=== PATIENT | male | born 1965 | race Caucasian/White ===

== ENCOUNTER 2023-01-30 23:01 | Inpatient (IN) | payer OTHER, SELFPAY ==
--- NOTE | ~2023-01-30 | XR_ITS ---
EXAMINATION: XR CHEST CLINICAL INFORMATION: Shortness of breath COMPARISON: Chest radiograph 01/08/2022 TECHNIQUE: Frontal view of the chest was obtained. FINDINGS: There is been significant improvement in appearances since the prior study with much better expanded lungs and clearing of bilateral lower lobe atelectasis. At this time, the chest radiograph is unremarkable. Heart size normal. No infiltrates, effusions or lung masses. Again noted is cervical/thoracic fusion hardware. A tracheostomy is no longer present. XR/XR chest 1V IMPRESSION: No acute intrathoracic disease. Marked improvement since prior.
--- NOTE | ~2023-01-30 | XR_ITS ---
EXAMINATION: XR CHEST CLINICAL INFORMATION: Line placement COMPARISON: Earlier same date TECHNIQUE: Frontal view of the chest was obtained. FINDINGS: Left internal jugular central venous catheter terminates in the mid SVC. Normal symmetric lung volumes. No parenchymal consolidation. No pleural effusion. No pneumothorax. Cardiomediastinal silhouette and pulmonary vascularity are within normal limits. No acute osseous abnormalities. XR/XR chest 1V IMPRESSION: Left internal jugular central venous catheter terminates in the mid SVC. No pneumothorax.
--- NOTE | ~2023-01-30 | CT_ITS ---
EXAMINATION: CT PELVIS WITHOUT CONTRAST CLINICAL INFORMATION: Pressure wounds. Question of osteomyelitis. COMPARISON: None available. TECHNIQUE: Helical scanning was performed with submillimeter collimation through the pelvis. Sagittal and coronal multiplanar 2-D reconstructions were obtained. This CT examination was performed using dose optimization techniques as appropriate, variously including the following: *Automated exposure control *Adjustment of mA and/or kV according to patient size (this includes techniques or standardized protocols for targeted exams where dose is matched to indication/reason for exam; i.e. extremities or head) *Use of iterative reconstruction technique DLP: 473 mGy-cm FINDINGS: Large sacral decubitus ulcer reaching the inferior sacrum with chronic erosion of the S5 segment and complete resorption of the coccyx. The S5 segment is nearly completely resorbed on the left. The remaining right lateral aspect of the S5 segment appears corticated. There are erosive changes involving the dorsal cortex of the S4 segment, with heterotopic new bone formation. There are separate decubitus ulcers posterior to the bilateral ischia. On the right, the ulcer does not reach the bone but does reach the gluteus jud. On the left, the ulcer reaches the ischium which shows periosteal and cortical erosive changes with intramedullary lucency. A fourth decubitus ulcer posterior to the left proximal femur reaches the posterior metaphysis/greater trochanter with cortical destruction of the posterior aspect of the greater trochanter. There is gas lateral to the left greater trochanter, likely within the trochanteric bursa. Minimally displaced age-indeterminate left sacral alar insufficiency fracture. No additional fractures. Asymmetric thickening of the left piriformis likely reactive as it communicates with the large sacral decubitus ulcer. Trace presacral fat stranding without intraperitoneal drainable collection. Zuluaga catheter within the bladder. Diverticulosis coli. Left lower quadrant loop colostomy. CT/CT pelvis wo IV con IMPRESSION: * Large sacral decubitus ulcer with complete resorption of the coccyx, chronic erosion of the S5 segment and erosive changes involving the dorsal cortex of the S4 segment, which could represent acute on chronic osteomyelitis. * Additional decubitus ulcers posterior to the bilateral ischia, and posterior to the left proximal femur. The left ischial decubitus ulcer is associated with cortical destruction or intramedullary lucency within the left ischium indicative of osteomyelitis. The acuteness ulcer posterior to the proximal left femur reaches the posterior left femoral metaphysis/greater trochanter with cortical destruction of the posterior aspect of the greater trochanter, compatible with an additional site of osteomyelitis. This left posterior femoral decubitus ulcer likely communicates with the left greater trochanteric bursa which contains gas and small fluid. * No drainable fluid collection. * Age-indeterminate left sacral alar insufficiency fracture. * Additional chronic findings as above
--- NOTE | 2023-01-30 23:18 | ECG_ITS ---
Test Reason : SEPSIS Blood Pressure : / mmHG Vent. Rate : 109 BPM Atrial Rate : 110 BPM P-R Int : 122 ms QRS Dur : 140 ms QT Int : 354 ms P-R-T Axes : 067 006 042 degrees QTc Int : 476 ms Sinus tachycardia Right bundle branch block Possible Inferior infarct , age undetermined Abnormal ECG No previous ECGs available Referred By: Brittney Manning Electronically Signed By:BRADY FONG
--- NOTE | 2023-01-30 23:20 | ED.SOB ---
HPI - SOB/Dyspnea General Chief Complaint: Urogenital-Male Stated Complaint: BLOOD IN THE CATHETER Time Seen by Provider: 01/30/23 23:08 Source: patient Mode of arrival: EMS History of Present Illness HPI Narrative: 57-year-old male is brought in by EMS, he has not been to this institution previously and primarily gets his medical conditions treated through the [facility] system. Patient states that he became sweaty, he is a quadriplegic who has an indwelling Zuluaga catheter in states that typically when he becomes sweaty it is because his catheter is clogged and he has been drinking a lot of water throughout the day and feels his bladder may be distended. Patient reports he is also on anticoagulation. Patient states that he felt like he was going in and out . Related Data Home Medications Medication Instructions Recorded Confirmed acetaminophen 650 mg tablet 650 mg PO Q4H PRN Pain 01/31/23 01/31/23 albuterol sulfate 2.5 mg/3 mL See Rx Instructions .Route 01/31/23 01/31/23 (0.083 %) solution for nebulization .COMPLEX PRN Shortness Of Breath Or Wheezing alprazolam 0.25 mg tablet 0.25 mg PO BID PRN Anxiety 01/31/23 01/31/23 apixaban 2.5 mg tablet 2.5 mg PO BID 01/31/23 01/31/23 baclofen 10 mg tablet 10 mg PO TID 01/31/23 01/31/23 bisacodyl 10 mg rectal suppository 10 mg MT NEEDED 01/31/23 01/31/23 carbamide peroxide 6.5 % ear drops See Rx Instructions .Route .COMPLEX 01/31/23 01/31/23 (Debrox) carvedilol 3.125 mg tablet (Coreg) 3.125 mg PO Q12H 01/31/23 01/31/23 diclofenac sodium 1 % topical gel 2 g topical BID 01/31/23 01/31/23 fluticasone propionate 50 1 spray intranasal DAILY 01/31/23 01/31/23 mcg/actuation nasal spray,suspension loperamide 2 mg tablet (Imodium 2 mg PO Q6H PRN Diarrhea 01/31/23 01/31/23 A-D) omeprazole magnesium 20 mg 20 mg PO DAILY 01/31/23 01/31/23 tablet,delayed release (Prilosec OTC) potassium chloride 20 mEq 20 meq PO DAILY 01/31/23 01/31/23 tablet,extended release(part/cryst) (Klor-Con M) pravastatin 10 mg tablet 10 mg PO BEDTIME 01/31/23 01/31/23 sennosides 8.6 mg tablet 8.6 mg PO DAILY 01/31/23 01/31/23 sodium phosphates 19 gram-7 118 ml MT NEEDED 01/31/23 01/31/23 gram/118 mL enema (Fleet Enema) Allergies Allergy/AdvReac Type Severity Reaction Status Date / Time No Known Allergies Allergy Verified 01/30/23 23:22 Review of Systems Review of Systems: Pertinent positives and negatives as stated in [facility] Past Medical History Source: nursing notes reviewed Social History Social History Advance Directives: No Advance Directives Information Provided: Yes Physical Exam Vital Signs: Vital Signs: Last Vital Signs Temp 97.5 F 01/31/23 00:49 Pulse 86 01/31/23 01:24 Resp 18 01/31/23 01:24 BP 97/46 L 01/31/23 01:24 Pulse Ox 96 01/31/23 01:24 O2 Del Method Room Air 01/31/23 01:24 BMI result Body Mass Index 26.3 VITAL SIGNS: Reviewed. GENERAL: Chronically ill, in no moderate distress. HEAD: Normocephalic/atraumatic EYES: PERRLA, EOMI EARS: Ext canals without abnormality NOSE: Nares patent bilateral OROPHARYNX: no oral lesions noted, posterior pharynx clear, pale mucosa NECK: Supple, no adenopathy LUNGS: Normal breath sounds. No adventitious sounds or accessory muscle use. CARDIOVASCULAR: Regular rate and rhythm without noted murmurs, ABDOMEN: Soft, non-tender, non-distended with bowel sounds. MUSCULOSKELETAL: No tenderness, deformities, or effusions noted on gross inspection. EXTREMITIES: No cyanosis, clubbing or edema. SKIN: Inspection of the skin reveals no rashes, he is diaphoretic, pale NEUROLOGIC: Alert and oriented x 4. 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 Medications Administered Discontinued Medications Generic Name Dose Route Start Last Admin Trade Name Freq PRN Reason Stop Dose Admin Sodium Chloride 1,000 mls @ 999 mls/hr 01/30/23 23:45 01/31/23 00:51 Ns IV 01/31/23 00:45 Not Given .Q1H1M ESTEPHANIA Sodium Chloride 2,286.12 mls @ 2,286.12 mls/hr 01/31/23 00:00 01/31/23 00:56 Ns 30 ml/kg infuse over 1 hr (2286.12 ml) 01/31/23 00:59 Infused IVCONT Infusion .Q1H ONE Ceftriaxone Sodium 1 gm/ 100 mls @ 200 mls/hr 01/31/23 00:00 01/31/23 00:37 Sodium Chloride IV 01/31/23 00:29 Infused ONCE ONE Infusion Medical Decision Making Medical Decision Making MDM Narrative: 57-year-old male brought in by EMS, will review paperwork from long-term care facility, at this time will obtain bladder scan suspect that patient has gone into acute urinary retention likely secondary to clogged catheter which shows evidence of hematuria. Patient is pale and diaphoretic and will exchange Zuluaga catheter an attempt to alleviate current situation. Patient reports that he has low blood pressure at baseline which is consistent with the degree of spinal cord injury that he has endorsed. - Labs, Bladder scan, EKG, coags, Type& Screen, exchange catheter at this time 0001: Activated sepsis alert, patient with to low blood pressures though I suspect that this is in part his baseline as he is already endorsed, however leukocytosis is significant, antibiotics ordered. 0043: Urinalysis positive for nitrites, leukocyte esterase as well as blood, the latter of which was already apparent. On re-evaluation patient's blood pressure has improved, patient states he is feeling better, I reviewed documentation obtained from [facility] which demonstrates an EKG that is comparable to the 1 obtained today, echo which demonstrates EF of 55-60%. I discussed the case with the inpatient hospitalist who accepts admission. Differential Diagnosis Please see the discussion above Consult Healthcare Provider Management of the patient was discussed with: Hospitalist Please see the discussion above Lab Data Please see the discussion above 01/30/23 23:41 01/31/23 00:16 Labs: Lab Results 01/30/23 01/30/23 01/30/23 Range/Units 23:41 23:42 23:45 WBC 36.2 H* (4.8-10.8) X10*3/uL RBC 3.78 L (4.60-5.80) X10*6/uL Hgb 8.4 L (14.0-18.0) g/dl Hct 28.1 L (42.0-52.0) % MCV 74.3 L (80.0-98.0) fL MCH 22.2 L (27.0-33.0) pg MCHC 29.9 L (31.0-36.0) g/dl RDW 17.6 H (11.0-16.0) % Plt Count 554 H (160-400) X10*3/uL MPV 7.7 L (9.4-12.4) fL Immature Gran % (Auto) 1.1 H (0.0-0.4) % Neut % (Auto) 90.6 H (45-73) % Lymph % (Auto) 4.1 L (20-40) % [place] % (Auto) 3.6 (2-11) % Eos % (Auto) 0.4 (0-4) % Baso % (Auto) 0.2 (0-2) % Lymph # (Auto) 1.5 (1.2-4.9) X10*3/uL [place] # (Auto) 1.3 H (0.1-1.2) X10*3/uL Eos # (Auto) 0.1 (0.0-0.4) X10*3/uL Baso # (Auto) 0.1 (0.0-0.2) X10*3/uL Abs Immat Gran (auto) 0.40 H (0.00-0.03) X10*3/uL Absolute Neuts (auto) 32.8 H (2.0-8.3) x10*3/uL Absolute Nucleated RBC 0.020 H (0.0-0.012) X10*3/uL Nucleated RBC % (auto) 0.1 (0.0-0.2) /100WBC Smear Tech's Comments VERIFIED PT 17.3 H (10.0-13.1) SEC INR 1.5 H (0.9-1.1) Sodium (135-145) mmol/L Potassium (3.3-5.1) mmol/L Chloride (96-108) mmol/L Carbon Dioxide (22-29) mmol/L Anion Gap (12-20) BUN (9-16) mg/dL Creatinine (0.5-1.4) mg/dL Estim Creat Clear Calc Estimated GFR Random Glucose (60-115) mg/dL Lactic Acid 1.8 (0.5-2.0) mmol/L Calcium (8.4-10.2) mg/dL Total Bilirubin (0.0-1.0) mg/dL AST (5-37) U/L ALT (0-40) U/L Alkaline Phosphatase (39-117) U/L Total Protein (6.5-8.0) g/dL Albumin (3.5-5.0) g/dL Urine Color Urine Appearance Urine pH (5.0-9.0) Ur Specific [place] (1.005-1.025) Urine Protein (Neg-Trace) mg/dL Urine Glucose (UA) (Negative) mg/dL Urine Ketones (Negative) mg/dL Urine Blood (Negative) Urine Nitrite (Negative) Ur Leukocyte Esterase (Negative) Urine RBC (0-2) /HPF Urine WBC (0-5) /HPF Ur Squamous Epith Cells (0-2) /HPF Urine Bacteria (None Seen) Hyaline Casts (0-2) /LPF Blood Type Antibody Screen 01/30/23 01/31/23 01/31/23 Range/Units 23:55 00:02 00:16 WBC (4.8-10.8) X10*3/uL RBC (4.60-5.80) X10*6/uL Hgb (14.0-18.0) g/dl Hct (42.0-52.0) % MCV (80.0-98.0) fL MCH (27.0-33.0) pg MCHC (31.0-36.0) g/dl RDW (11.0-16.0) % Plt Count (160-400) X10*3/uL MPV (9.4-12.4) fL Immature Gran % (Auto) (0.0-0.4) % Neut % (Auto) (45-73) % Lymph % (Auto) (20-40) % [place] % (Auto) (2-11) % Eos % (Auto) (0-4) % Baso % (Auto) (0-2) % Lymph # (Auto) (1.2-4.9) X10*3/uL [place] # (Auto) (0.1-1.2) X10*3/uL Eos # (Auto) (0.0-0.4) X10*3/uL Baso # (Auto) (0.0-0.2) X10*3/uL Abs Immat Gran (auto) (0.00-0.03) X10*3/uL Absolute Neuts (auto) (2.0-8.3) x10*3/uL Absolute Nucleated RBC (0.0-0.012) X10*3/uL Nucleated RBC % (auto) (0.0-0.2) /100WBC Smear Tech's Comments PT (10.0-13.1) SEC INR (0.9-1.1) Sodium 132 L (135-145) mmol/L Potassium 3.3 (3.3-5.1) mmol/L Chloride 98 (96-108) mmol/L Carbon Dioxide 23 (22-29) mmol/L Anion Gap 14 (12-20) BUN 9 (9-16) mg/dL Creatinine 0.51 (0.5-1.4) mg/dL Estim Creat Clear Calc 149.4 Estimated GFR > 60 Random Glucose 98 (60-115) mg/dL Lactic Acid (0.5-2.0) mmol/L Calcium 7.6 L (8.4-10.2) mg/dL Total Bilirubin 0.6 (0.0-1.0) mg/dL AST 12 (5-37) U/L ALT 8 (0-40) U/L Alkaline Phosphatase 99 (39-117) U/L Total Protein 5.7 L (6.5-8.0) g/dL Albumin 2.1 L (3.5-5.0) g/dL Urine Color Yellow Urine Appearance Turbid Urine pH 6.5 (5.0-9.0) Ur Specific [place] 1.010 (1.005-1.025) Urine Protein 30 (1+) H (Neg-Trace) mg/dL Urine Glucose (UA) Negative (Negative) mg/dL Urine Ketones Trace (Negative) mg/dL Urine Blood Large (3+) H (Negative) Urine Nitrite Positive H (Negative) Ur Leukocyte Esterase Large (3+) H (Negative) Urine RBC >20 H (0-2) /HPF Urine WBC >50 H (0-5) /HPF Ur Squamous Epith Cells 0-2 (0-2) /HPF Urine Bacteria 4+ (None Seen) Hyaline Casts 0-2 (0-2) /LPF Blood Type A Positive Antibody Screen NEGATIVE Independent Interpretation I performed an independent interpretation of an: EKG Interpretation: Sinus tachycardia, HR-109, RBBB, no STEMI, MT/QTC is within normal limits. Radiology Impression Radiologist Impression: My interpretation is in agreement with radiology's impression. External Record Review External record reviewed: Outpatient record Procedures EJ/Peripheral Line Arm R: Time Out Performed: No Skin Cleansed in Sterile Fashion: Yes Size (gauge): 18 IV Secured and Dressing Applied: Yes Patient Tolerated Procedure: well Additional Comments: Ultrasound-guided peripheral IV placed in the right antecubital. Discharge Plan Discharge Clinical Impression: Sepsis, Acute UTI, Urinary retention, Chronic anticoagulation, Hematuria, Quadriplegia Patient Disposition: Admitted As Inpatient
[2023-01-30 23:22] VITALS: BP 124/60; BP 74/32; PULSE 111; PULSE 120; RESP 20; TEMP 36.8; O2SAT 97; BMI 26.3
--- NOTE | 2023-01-30 23:41 | PC.NURSE ---
#18 ultrasound guided PIV initiated to right AC. Additional blood collected and sent to lab.
--- NOTE | 2023-01-30 23:50 | PC.NURSE ---
Nacl bolus initiated per sepsis protocol.
[2023-01-30 23:53] LABS: Basophils Absolute Auto 0.1 X10*3/uL (0.0-0.2); Basophils Percent Auto 0.2 % (0-2); Eosinophils Absolute Auto 0.1 X10*3/uL (0.0-0.4); Eosinophils Percent Auto 0.4 % (0-4); Hematocrit 28.1 % (42.0-52.0); Hemoglobin 8.4 g/dl (14.0-18.0); Imm Gran Pct Auto 1.1 % (0.0-0.4); Lymphocytes Absolute Auto 1.5 X10*3/uL (1.2-4.9); Lymphocytes Percent Auto 4.1 % (20-40); MANUAL DIFF FLAG SCAN; Mean Corpuscular HGB Conc 29.9 g/dl (31.0-36.0); Mean Corpuscular Hemoglobin 22.2 pg (27.0-33.0); Mean Corpuscular Volume 74.3 fL (80.0-98.0); Mean Platelet Volume 7.7 fL (9.4-12.4); Monocytes Absolute Auto 1.3 X10*3/uL (0.1-1.2); Monocytes Percent Auto 3.6 % (2-11); NRBC Pct Auto 0.1 /100WBC (0.0-0.2); Neutrophils Absolute Auto 32.8 x10*3/uL (2.0-8.3); Neutrophils Percent Auto 90.6 % (45-73); Platelet Count 554 X10*3/uL (160-400); Red Blood Count 3.78 X10*6/uL (4.60-5.80); Red Cell Distribution Width 17.6 % (11.0-16.0); SCAN SMEAR FLAG 1
[2023-01-30 23:57] LABS: White Blood Count 36.2 X10*3/uL (4.8-10.8)
[2023-01-30 23:58] LABS: INTERNATIONAL NORM RATIO 1.5 (0.9-1.1); Prothrombin Time 17.3 SEC (10.0-13.1)
[2023-01-31] VITALS (49 sets, daily range): BP systolic 75–123; BP diastolic 30–64; PULSE 79–108; RESP 12–24; TEMP 36.4–37.7; O2SAT 95–99; BMI 27.9; BMI 28.6
--- NOTE | 2023-01-31 | PC.NURSE ---
new 22g [address] borrego initiated at this time. Clear yellow urine noted with small blood clots.
--- NOTE | 2023-01-31 00:01 | PC.NURSE ---
sepsis alert called for pt at this time
[2023-01-31 00:03] LABS: Lactic Acid 1.8 mmol/L (0.5-2.0)
[2023-01-31] MEDS: cefTRIAXone sodium 1 GM in 0.9 % Sodium Chloride 100 ML IV (00:07)
[2023-01-31 00:14] LABS: SLIDE REVIEW VERIFIED
--- NOTE | 2023-01-31 00:14 | MHC.EDTECH ---
[facility] Medical Records called @ 0014 per to get most recent records on patient. Awaiting fax or call @ this time.
[2023-01-31 00:18] LABS: Appearance Urine Turbid; Color Urine Yellow; Glucose Urine UA Negative (Negative); Leukocyte Esterase Urine Large (3+) (Negative); Nitrite Urine Positive (Negative); PH 6.5 (5.0-9.0); UMIC TRIGGER UACC YES; Urine Blood Large (3+) (Negative); Urine Ketones Trace mg/dL (Negative); Urine Protein 30 (1+) mg/dL (Neg-Trace)
[2023-01-31 00:19] LABS: Bacteria Urine 4+ (None Seen); Hyaline Casts Urine 0-2 /LPF (0-2); RBC Urine >20 /HPF (0-2); Squamous Epithelial Cell Urine 0-2 /HPF (0-2); UACC Culture Trigger YES; WBC Urine >50 /HPF (0-5)
--- NOTE | 2023-01-31 00:25 | PC.NURSE ---
BP 80/30. Will notify provider. Nacl bolus continues to infuse.
[2023-01-31 00:35] LABS: Anion Gap 14 (12-20)
[2023-01-31 00:40] LABS: Alanine Aminotransferase 8 U/L (0-40); Albumin Level 2.1 g/dL (3.5-5.0); Alkaline Phosphatase 99 U/L (39-117); Aspartate Amino Transferase 12 U/L (5-37); Bilirubin Total 0.6 mg/dL (0.0-1.0); Blood Urea Nitrogen 9 mg/dL (9-16); Calcium 7.6 mg/dL (8.4-10.2); Carbon Dioxide 23 mmol/L (22-29); Chloride 98 mmol/L (96-108); Creatinine Clr Calc Pharmacy 149.4; Estimated Glomerular Filt Rate > 60; Glucose Random 98 mg/dL (60-115); Potassium 3.3 mmol/L (3.3-5.1); Sodium 132 mmol/L (135-145); Total Protein 5.7 g/dL (6.5-8.0)
--- NOTE | 2023-01-31 01:08 | MHC.EDTECH ---
Second call out to [facility] Medical Records @ [phone] per , awaiting fax at this time
--- NOTE | 2023-01-31 01:21 | MHC.EDTECH ---
Faxed received from [facility] @[phone] records gave to
--- NOTE | 2023-01-31 02:11 | PC.NURSE ---
Large unstageable pressure ulcer noted to buttock area. Please see physician Benjie documentation for further details.
--- NOTE | 2023-01-31 02:50 | PC.NURSE ---
SBP in the 70's. Dr. Manning made aware. Pt continues to mentate per normal. Plan for norepinephrine and ICU admission.
--- NOTE | 2023-01-31 02:52 | PC.NURSE ---
Pt to CT.
[2023-01-31] MEDS: Norepinephrine Bitartrate/D5W 8 MG/250 ML PLAST..BAG 7.14 MG IV (03:48)
--- NOTE | 2023-01-31 04:00 | PC.NURSE ---
[place] [facility] at bedside for central line placement. Verbal consent received from pt for procedure.
--- NOTE | 2023-01-31 04:30 | PC.NURSE ---
triple lumen central line placed to left IJ. radiology called for portable CXR for confirmation.
--- NOTE | 2023-01-31 04:41 | PC.NURSE ---
Radiology at bedside for portable CXR.
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
--- NOTE | 2023-01-31 04:45 | W.PM.CCHP ---
Procedures Date of Service Date of Service: 01/31/23 Central Line Placement Right IJ: Central Line Comments: ? A quick time-out was made for clarification and proper patient identification, patient was positioned, landmarks were identified, US used to locate a? large compressible IJ.? The right neck was widely prepped and draped in a full sterile fashion.? Ultrasound was used to locate again the right IJ, the vein was cannulated on the 1st pass with an 18 gauge thin needle, dark nonpulsatile blood return was obtained.? The wire was threaded, a small incision was made at its base and dilator inserted.? A? 16 cm triple-lumen central venous catheter was advanced into the vein up to the hub without problems, wired was removed. Ports had? good blood return and flushed x3.? The catheter was secured with 3 sutures at 3 sites, a Biopatch and dry sterile dressing were applied. Post procedure chest x-ray showed the line to be in good position without pneumothorax.? No bleeding or complications noted. Consent for Procedure: Elective - informed consent obtained ( from the patient who verbally agreed. Risk and benefits were discussed in detail with him.) Time out performed: Yes Sterile Technique Used: Yes Patient placed on monitor/pulse ox: Yes prep: mask, gown and gloves Central line prep: Chlorhexidine scrub Ultrasound used for placement: Yes Central line lumen inserted: triple Post procedure: sutured in place, good blood return, all ports aspirated, flushed, capped and sterile dressing applied Post procedure x-ray: tip of catheter in good position and no pneumothorax seen Patient tolerated procedure: well and no complications Complications: none
--- NOTE | 2023-01-31 04:53 | PC.NURSE ---
Per Greyson CANSECO, okay to use central line at this time.
--- NOTE | 2023-01-31 04:58 | PC.NURSE ---
Report to Najma RODGERS in ICU for continued care.
[2023-01-31] MEDS: Albumin Human 25 % 100 ML 133.33 ML IV ×2 (05:11→08:06)
[2023-01-31] MEDS: Piperacillin Sodium/Tazobactam 4.5 GM in 0.9 % Sodium Chloride 100 ML IV ×4 (05:15→23:56)
[2023-01-31] MEDS: vancomycin/NS 2,000 MG/500 ML PLAST..BAG 250 MG IV (05:20)
[2023-01-31 05:45] LABS: Basophils Absolute Auto 0.1 X10*3/uL (0.0-0.2); Basophils Percent Auto 0.2 % (0-2); Eosinophils Percent Auto 0.1 % (0-4); Hematocrit 22.8 % (42.0-52.0); Imm Gran Abs Auto 0.33 X10*3/uL (0.00-0.03); Imm Gran Pct Auto 1.1 % (0.0-0.4); Lymphocytes Absolute Auto 1.7 X10*3/uL (1.2-4.9); Lymphocytes Percent Auto 5.8 % (20-40); MANUAL DIFF FLAG SCAN; Mean Corpuscular HGB Conc 29.8 g/dl (31.0-36.0); Mean Corpuscular Hemoglobin 22.4 pg (27.0-33.0); Mean Platelet Volume 7.5 fL (9.4-12.4); Monocytes Absolute Auto 1.2 X10*3/uL (0.1-1.2); Neutrophils Absolute Auto 25.6 x10*3/uL (2.0-8.3); Neutrophils Percent Auto 88.8 % (45-73); Platelet Count 486 X10*3/uL (160-400); Red Blood Count 3.04 X10*6/uL (4.60-5.80); Red Cell Distribution Width 17.4 % (11.0-16.0); SCAN SMEAR FLAG 1; White Blood Count 28.9 X10*3/uL (4.8-10.8)
[2023-01-31 05:47] LABS: Hemoglobin 6.8 g/dl (14.0-18.0)
[2023-01-31 05:55] LABS: Lactic Acid 0.9 mmol/L (0.5-2.0)
[2023-01-31 06:01] LABS: Alanine Aminotransferase 9 U/L (0-40); Albumin Level 2.3 g/dL (3.5-5.0); Alkaline Phosphatase 95 U/L (39-117); Anion Gap 13 (12-20); Aspartate Amino Transferase 12 U/L (5-37); Bilirubin Total 0.4 mg/dL (0.0-1.0); Blood Urea Nitrogen 7 mg/dL (9-16); Calcium 7.7 mg/dL (8.4-10.2); Carbon Dioxide 24 mmol/L (22-29); Chloride 104 mmol/L (96-108); Creatinine Clr Calc Pharmacy 162.1; Estimated Glomerular Filt Rate > 60; Glucose Random 123 mg/dL (60-115); Potassium 3.1 mmol/L (3.3-5.1); Sodium 138 mmol/L (135-145); Total Protein 5.8 g/dL (6.5-8.0)
[2023-01-31 06:46] LABS: Magnesium 1.6 mg/dL (1.6-2.6)
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
[2023-01-31] MEDS: Potassium Chloride Packet 20 MEQ PACKET 40 MEQ PO (08:04)
--- NOTE | 2023-01-31 08:06 | PHA.MEDREC ---
Pharmacy Consult ? Medication Reconciliation Pharmacy has reviewed the medication reconciliation completed by Devora. Patient came from [facility] with a medication list. Shannan Oneil, NaaD
[2023-01-31] MEDS: Famotidine/PF 20 MG/2 ML VIAL IVPUSH (08:14)
[2023-01-31] MEDS: Fluticasone Propionate Nasal 16 GM SPRAY 1 SPRAY NOSTRIL-B (09:31)
[2023-01-31] MEDS: Potassium Chloride/H20 40 MEQ/100 ML PIGGYBACK 100 MEQ IV (09:32)
[2023-01-31] MEDS: Albumin Human 25 % 100 ML IV ×3 (09:37→20:31)
[2023-01-31 11:06] LABS: Hematocrit 23.4 % (42.0-52.0); Hemoglobin 7.2 g/dl (14.0-18.0)
[2023-01-31] MEDS: vancomycin HCL 1,250 MG in 0.9 % Sodium Chloride 250 ML 166.67 MG IV (17:11)
[2023-01-31] MEDS: Lactated Ringers 1,000 ML 999 ML IV (22:38)
[2023-02-01] VITALS (24 sets, daily range): BP systolic 96–131; BP diastolic 49–69; PULSE 82–96; RESP 14–31; TEMP 36.6–37; O2SAT 95–99; BMI 29.5
[2023-02-01] MEDS: Albumin Human 25 % 100 ML IV ×3 (02:18→09:55)
[2023-02-01] MEDS: Piperacillin Sodium/Tazobactam 4.5 GM in 0.9 % Sodium Chloride 100 ML IV ×4 (04:21→22:56)
[2023-02-01] MEDS: vancomycin HCL 1,250 MG in 0.9 % Sodium Chloride 250 ML 166.67 MG IV ×3 (04:21→23:30)
[2023-02-01 05:26] LABS: VBG Base Excess 5.9 mmol/L; VBG HCO3 29 mmol/L (22-26); VBG pCO2 37 mmHg; VBG pO2 40 mmHg
[2023-02-01 05:28] LABS: Venous Blood Gas Refer to POC result
[2023-02-01 05:41] LABS: MANUAL DIFF FLAG NO
[2023-02-01 05:45] LABS: Basophils Absolute Auto 0.1 X10*3/uL (0.0-0.2); Basophils Percent Auto 0.4 % (0-2); Eosinophils Absolute Auto 0.4 X10*3/uL (0.0-0.4); Eosinophils Percent Auto 2.9 % (0-4); Hematocrit 21.4 % (42.0-52.0); Imm Gran Abs Auto 0.13 X10*3/uL (0.00-0.03); Imm Gran Pct Auto 0.9 % (0.0-0.4); Lymphocytes Absolute Auto 1.5 X10*3/uL (1.2-4.9); Lymphocytes Percent Auto 10.7 % (20-40); Mean Corpuscular HGB Conc 29.9 g/dl (31.0-36.0); Mean Corpuscular Hemoglobin 23.4 pg (27.0-33.0); Mean Corpuscular Volume 78.4 fL (80.0-98.0); Mean Platelet Volume 7.7 fL (9.4-12.4); Monocytes Absolute Auto 0.9 X10*3/uL (0.1-1.2); Monocytes Percent Auto 6.7 % (2-11); Neutrophils Absolute Auto 10.9 x10*3/uL (2.0-8.3); Neutrophils Percent Auto 78.4 % (45-73); Platelet Count 363 X10*3/uL (160-400); Red Blood Count 2.73 X10*6/uL (4.60-5.80); Red Cell Distribution Width 18.6 % (11.0-16.0); White Blood Count 13.9 X10*3/uL (4.8-10.8)
[2023-02-01 05:47] LABS: Hemoglobin 6.4 g/dl (14.0-18.0)
[2023-02-01 06:00] LABS: Albumin Level 3.1 g/dL (3.5-5.0); Anion Gap 10 (12-20); Blood Urea Nitrogen 3 mg/dL (9-16); Calcium 8.2 mg/dL (8.4-10.2); Carbon Dioxide 25 mmol/L (22-29); Chloride 107 mmol/L (96-108); Creatinine Clr Calc Pharmacy 166.8; Estimated Glomerular Filt Rate > 60; Glucose Random 126 mg/dL (60-115); Magnesium 1.6 mg/dL (1.6-2.6); Phosphorus 2.1 mg/dL (2.7-4.5); Potassium 3.3 mmol/L (3.3-5.1); Sodium 139 mmol/L (135-145)
[2023-02-01] MEDS: Pantoprazole Sodium 40 MG/10 ML VIAL 80 MG IVPUSH (08:31)
[2023-02-01] MEDS: Potassium Phosphate/NS 15 MMOL/250 ML PLAST..BAG 62.5 MMOL IV ×2 (08:31→12:46)
[2023-02-01] MEDS: Pantoprazole Sodium 80 MG in 0.9 % Sodium Chloride 80 ML 10 MG IV (08:31)
[2023-02-01] MEDS: Fluticasone Propionate Nasal 16 GM SPRAY 1 SPRAY NOSTRIL-B (08:42)
--- NOTE | 2023-02-01 09:37 | MHC.CLN ---
NUTRITION CONSULT FOR MULTIPLE WOUNDS. REGULAR DIET. REQUIRES ASSIST WITH EATING DUE TO NEAR PARAPLEGIA. MULTIPLE STAGE IV PRESSURE AREAS PLUS ONE UNSTAGEABLE AREA. INCREASED PROTEIN NEEDS DUE TO IMPAIRED SKIN INTEGRITY. INTAKE REPORTED 25-100%. ADDING ENSURE MAX PROTEIN TID TO PROMOTE WOUND HEALING. PROVIDES ADDITIONAL 450 KCALS, 90 G PROTEIN. FOLLOW FOR INTAKE AND WOUND HEALING.
[2023-02-01 10:19] LABS: Hematocrit 23.5 % (42.0-52.0); Hemoglobin 7.2 g/dl (14.0-18.0)
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
[2023-02-01 15:50] LABS: Vancomycin Random 10.6 mcg/mL (15-20)
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
[2023-02-02 03:18] VITALS: BP 130/69; PULSE 97; RESP 16; TEMP 36.8; O2SAT 95
[2023-02-02] MEDS: Piperacillin Sodium/Tazobactam 4.5 GM in 0.9 % Sodium Chloride 100 ML IV ×4 (05:47→22:46)
[2023-02-02 06:00] VITALS: BMI 29.0
[2023-02-02 06:57] LABS: Creatinine Clr Calc Pharmacy 183.6; Estimated Glomerular Filt Rate > 60
[2023-02-02 07:41] VITALS: BP 104/57; PULSE 92; RESP 20; TEMP 37; O2SAT 96
[2023-02-02] MEDS: vancomycin HCL 1,250 MG in 0.9 % Sodium Chloride 250 ML 166.67 MG IV (09:10)
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
[2023-02-02 11:50] VITALS: BP 110/60; PULSE 86; RESP 20; TEMP 37.2; O2SAT 96
[2023-02-02 15:45] VITALS: BP 106/56; PULSE 100; RESP 18; TEMP 37.3; O2SAT 97
[2023-02-02] MEDS: vancomycin HCL 1,000 MG in 0.9 % Sodium Chloride 250 ML 270 MG IV (16:56)
[2023-02-02 19:35] VITALS: BP 123/59; PULSE 101; RESP 20; TEMP 37.3; O2SAT 97
--- NOTE | 2023-02-02 23:12 | P.CNID_ITS ---
History of Present Illness Data of Consult Service Date: 02/02/23 Requesting physician: Basil Quan Primary Care Provider: Obinna Blanco MD HPI Reason for consult: bacteremia He felt sweaty and as if he had UTI He says when chronic Zuluaga catheter is clogged he gets UTI. He lives in facility. Review of Systems Review of Systems: Yes all other systems are reviewed and are negative PMFSH Past Medical History Medical History Colostomy in place Decubitus ulcer of ankle, stage 4 Quadriplegia Family History Family history: reviewed and not pertinent Surgical History Surgical History S/P cervical spinal fusion Status post tracheostomy Social History Social History Household Members: Other Household Members Other:: [facility] Housing: Long-Term Do you presently have visiting nurse or other home services: Yes Patient Tobacco Use Status: Former Tobacco user Tobacco use type: Cigarette Smoked in Last 30 Days: No e-Cigarette/Vaping Use: Never Used Patient Interested in Nicotine Replacement: No Second Hand Smoke Exposure: No Use of substances other than those prescribed or required for medical reasons: No Currently Displaying Signs/Symptoms of Drug Intoxication Withdrawal: No Have you been hit, kicked, punched, or otherwise hurt by someone within the past year? If so, by whom?: No Do you feel safe in your current relationship?: No Current Relationship Is there a partner from a previous relationship who is making you feel unsafe no w?: No Are you made to feel afraid or neglected: No [employer] Healthcare Practices: [facility] Advance Directives: Yes Advance Directives Information Provided: Yes Advance Directives on File: Yes Advance Directives Date on File: 01/31/23 Do you have thoughts of harming others: None Do you have a plan to hurt others: No Plan Recently lost weight without trying: No How much weight loss: Not applicable Eating poorly because of decreased appetite: No Nutrition screen score: 0 service: No Current occupational status: disabled Meds Allergies Allergy/AdvReac Type Severity Reaction Status Date / Time No Known Allergies Allergy Verified 01/30/23 23:22 Active Medications: Current Medications Acetaminophen (Acetaminophen 325 Mg Tablet) 650 mg PO Q4H PRN PRN Reason: Pain Albuterol Sulfate (Albuterol Sulfate (0.083%) 2.5 Mg/3 Ml Vial.Neb) 2.5 mg INHALE Q6H PRN PRN Reason: Shortness Of Breath Or Wheezing Alprazolam (Alprazolam 0.25 Mg Tablet) 0.25 mg PO BID PRN PRN Reason: Anxiety Fluticasone Propionate (Fluticasone Propionate Nasal 16 Gm [place]) 1 spray NOSTRIL-B DAILY [facility] Last Admin: 02/02/23 09:55 Dose: Not Given Piperacillin Sod/Tazobactam (Sod 4.5 gm/ Sodium Chloride) 100 mls @ 200 mls/hr IV Q6H [facility] Last Admin: 02/02/23 22:46 Dose: 200 mls/hr Vancomycin HCl 1,000 mg/ (Sodium Chloride) 270 mls @ 270 mls/hr IV Q8H [facility] Last Infusion: 02/02/23 18:19 Dose: Infused Omeprazole (Omeprazole 20 Mg/10 Ml Susp.Recon) 40 mg PO DAILY@0630 [facility] Last Admin: 02/02/23 05:47 Dose: 40 mg Pharmacy Consult (Consult Rx Vancomycin Dosing) 1 each MISCELLANE DAILY PRN PRN Reason: Consult order Home Medications Medication Instructions Recorded Confirmed Last Taken Type acetaminophen 650 mg tablet 650 mg PO Q4H PRN Pain 01/31/23 01/31/23 Unknown History albuterol sulfate 2.5 mg/3 mL See Rx Instructions .Route 01/31/23 01/31/23 Unknown History (0.083 %) solution for nebulization .COMPLEX PRN Shortness Of Breath Or Wheezing alprazolam 0.25 mg tablet 0.25 mg PO BID PRN Anxiety 01/31/23 01/31/23 Unknown History apixaban 2.5 mg tablet 2.5 mg PO BID 01/31/23 01/31/23 Unknown History baclofen 10 mg tablet 10 mg PO TID 01/31/23 01/31/23 Unknown History bisacodyl 10 mg rectal suppository 10 mg NC NEEDED 01/31/23 01/31/23 Unknown History carbamide peroxide 6.5 % ear drops 5 drp otic (ears) MOTH@2100 01/31/23 01/31/23 Unknown History (Debrox) carvedilol 3.125 mg tablet (Coreg) 3.125 mg PO Q12H 01/31/23 01/31/23 Unknown History diclofenac sodium 1 % topical gel 2 g topical BID 01/31/23 01/31/23 Unknown History fluticasone propionate 50 1 spray intranasal DAILY 01/31/23 01/31/23 Unknown History mcg/actuation nasal spray,suspension loperamide 2 mg tablet (Imodium 2 mg PO Q6H PRN Diarrhea 01/31/23 01/31/23 Unknown History A-D) omeprazole magnesium 20 mg 40 mg PO DAILY 01/31/23 01/31/23 Unknown History tablet,delayed release (Prilosec OTC) potassium chloride 20 mEq 20 meq PO DAILY 01/31/23 01/31/23 Unknown History tablet,extended release(part/cryst) (Klor-Con M) pravastatin 10 mg tablet 10 mg PO BEDTIME 01/31/23 01/31/23 Unknown History sennosides 8.6 mg tablet 8.6 mg PO DAILY 01/31/23 01/31/23 Unknown History sodium phosphates 19 gram-7 118 ml NC NEEDED 01/31/23 01/31/23 Unknown History gram/118 mL enema (Fleet Enema) Physical Exam Vital Signs: Vital Signs: Last Vital Signs Temp 99.2 F 02/02/23 19:35 Pulse 101 H 02/02/23 19:35 Resp 20 02/02/23 19:35 BP 123/59 L 02/02/23 19:35 Pulse Ox 97 02/02/23 19:35 O2 Del Method Room Air 02/02/23 19:35 BMI result Body Mass Index 29.0 Const: General: cooperative HEENT: Head: Yes normal to inspection Face and sinus: Yes normal facial exam Mouth: Normal oral and palatal mucosa present Teeth and gingiva: dentition normal Eyes: General: appearance normal, both eyes and all related structures Pupils: Equal, round and reactive pupils present Resp: Effort & Inspection: normal respiratory effort Cardio: Rate: regular rate Rhythm: regular rhythm GI: Palpation (GI): Soft to palpation and nontender : General: Yes no CVA tenderness Back/Spine/Pelvis: Back: no CVA tenderness Skin: General skin exam: no rashes or lesions noted Neuro: Other: quadriplegic General: moves all extremities Cranial nerves: Yes Equal, round and reactive pupils present Extrem: General: Yes normal to inspection Psych: Appearance: grossly normal Results Labs 02/01/23 10:04 02/02/23 06:25 Labs: BMP 02/02/23 06:25 Creatinine 0.46 L Microbiology Microbiology Results: Microbiology 01/30/23 23:45 Blood - Venous Blood Culture - Preliminary Escherichia coli Prelim: GPC Gram Stain only 01/31/23 Unknown Urine Catheterized - Zuluaga Catheter Urine Culture - Preliminary Gram negative re 01/30/23 23:42 Blood - Venous Blood Culture - Final Escherichia coli Assessment and Plan (1) Stage IV decubitus ulcer: Status: Acute (2) Gram-negative bacteremia: Status: Acute There is concern for urinary source and possible decubitis infection as well He has E coli bacteremia. There is likely decubitus osteomyelitis (3) Quadriplegia: Status: Acute Plan Would continue Ceftriaxone probably six weeks IV. Bone biopsy if able Wound care Time Spent With Patient Time: Total time managing care of this patient today ____ minutes.
[2023-02-02 23:58] VITALS: BP 105/56; PULSE 93; RESP 20; TEMP 37.4; O2SAT 95
[2023-02-03] MEDS: vancomycin HCL 1,000 MG in 0.9 % Sodium Chloride 250 ML 270 MG IV ×2 (00:46→09:06)
[2023-02-03 03:54] VITALS: BP 104/63; PULSE 94; RESP 20; TEMP 36.2; O2SAT 95
[2023-02-03 05:52] VITALS: BMI 30.8
[2023-02-03] MEDS: Piperacillin Sodium/Tazobactam 4.5 GM in 0.9 % Sodium Chloride 100 ML IV ×2 (06:01→10:24)
[2023-02-03 07:21] LABS: Hematocrit 28.6 % (42.0-52.0); Hemoglobin 8.8 g/dl (14.0-18.0); Mean Corpuscular HGB Conc 30.8 g/dl (31.0-36.0); Mean Corpuscular Hemoglobin 24.9 pg (27.0-33.0); Mean Corpuscular Volume 80.8 fL (80.0-98.0); Mean Platelet Volume 7.7 fL (9.4-12.4); Platelet Count 319 X10*3/uL (160-400); Red Blood Count 3.54 X10*6/uL (4.60-5.80); Red Cell Distribution Width 19.9 % (11.0-16.0); White Blood Count 13.4 X10*3/uL (4.8-10.8)
[2023-02-03 07:33] VITALS: BP 116/69; PULSE 91; RESP 20; TEMP 36.3; O2SAT 96
[2023-02-03 07:35] LABS: Anion Gap 14 (12-20); Blood Urea Nitrogen 4 mg/dL (9-16); Calcium 8.2 mg/dL (8.4-10.2); Carbon Dioxide 27 mmol/L (22-29); Chloride 101 mmol/L (96-108); Creatinine Clr Calc Pharmacy 201.8; Estimated Glomerular Filt Rate > 60; Glucose Fasting 88 mg/dL (60-99); Iron 6 mcg/dL (45-160); Percent Iron Saturation 8 % (15-50); Potassium 2.9 mmol/L (3.3-5.1); Sodium 139 mmol/L (135-145); Total Iron Binding Capacity 77 mcg/dL (228-428); Unsaturated Iron Binding 71 ug/dL
[2023-02-03] MEDS: Potassium Chloride Packet 20 MEQ PACKET 40 MEQ PO ×2 (09:04→10:23)
[2023-02-03] MEDS: Ferrous Sulfate 324 MG TABLET.DR PO (09:04)
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
[2023-02-03] MEDS: cefTRIAXone sodium 2 GM in 0.9 % Sodium Chloride 50 ML IV (11:08)
--- NOTE | 2023-02-03 11:11 | MHC.CM.PN ---
EMR REVIEWED, PT W/BACTEREMIA AND LIKELY OSTEOMYELITIS WILL NEED 6WKS IV ABX UPON RETURN TO SNF, PLAN FOR CENTRAL LINE TO BE REMOVED AND THEN ANTIC PICC LINE TO BE PLACED TOMORROW AND ANTIC PT WILL D/C BY END OF WEEK, MONY ANDREW UPDATED AND CM WILL CONT TO FOLLOW D/C NEEDS.
[2023-02-03 11:28] VITALS: BP 122/73; PULSE 84; RESP 20; TEMP 36.2; O2SAT 96
--- NOTE | 2023-02-03 12:44 | MHC.CLN ---
F/U INTAKE REPORTED 25-100% REGULAR DIET. REQUIRES ASSIST WITH EATING DUE TO NEAR PARAPLEGIA. MULTIPLE STAGE IV PRESSURE AREAS PLUS ONE UNSTAGEABLE AREA INCREASES PROTEIN NEEDS DUE TO IMPAIRED SKIN INTEGRITY PT RECEIVING ENSURE MAX PROTEIN TID TO PROMOTE WOUND HEALING PROVIDES ADDITIONAL 450 KCALS, 90 G PROTEIN FOLLOW FOR INTAKE AND WOUND HEALING
[2023-02-03 15:21] VITALS: BP 98/61; PULSE 98; RESP 16; TEMP 37.4; O2SAT 96
[2023-02-03 16:33] LABS: Vancomycin Random 15.1 mcg/mL (15-20)
[2023-02-03 19:27] VITALS: BP 113/71; PULSE 101; RESP 20; TEMP 37.7; O2SAT 96
[2023-02-04] VITALS (7 sets, daily range): BP systolic 107–133; BP diastolic 59–82; PULSE 96–105; RESP 17–20; TEMP 36.1–37.2; O2SAT 95–99; BMI 30.6
[2023-02-04 06:16] LABS: Hematocrit 28.6 % (42.0-52.0); Hemoglobin 8.9 g/dl (14.0-18.0); Mean Corpuscular HGB Conc 31.1 g/dl (31.0-36.0); Mean Corpuscular Hemoglobin 25.1 pg (27.0-33.0); Mean Corpuscular Volume 80.8 fL (80.0-98.0); Mean Platelet Volume 7.5 fL (9.4-12.4); Platelet Count 347 X10*3/uL (160-400); Red Blood Count 3.54 X10*6/uL (4.60-5.80); Red Cell Distribution Width 20.4 % (11.0-16.0); White Blood Count 13.5 X10*3/uL (4.8-10.8)
[2023-02-04 06:37] LABS: Anion Gap 15 (12-20); Blood Urea Nitrogen 5 mg/dL (9-16); Calcium 8.6 mg/dL (8.4-10.2); Carbon Dioxide 27 mmol/L (22-29); Chloride 99 mmol/L (96-108); Creatinine Clr Calc Pharmacy 201.2; Estimated Glomerular Filt Rate > 60; Glucose Random 85 mg/dL (60-115); Potassium 3.7 mmol/L (3.3-5.1); Sodium 137 mmol/L (135-145)
--- NOTE | 2023-02-04 07:55 | W.PM.OPN ---
Operative Note Operative Note Date of Service: 02/04/23 Narrative: Preoperative diagnosis: Osteomyelitis left hip Postoperative diagnosis:same Procedure:Bone biopsy for culture Surgeon: Carl Thibodeaux MD Excavator Backhoe Operator:none Anesthesia:none Indications for procedure:57-year-old male patient with history of quadriplegia found to have extensive decubitus ulcers with underlying osteomyelitis by CT. Patient presents for bone culture to direct antibiotic management. Operative findings: Palpable bone at base of ulcer in left hip Specimen: bone left hip Estimated blood loss: none Complications: none Procedure details: after assuring informed consent, the patient was placed in a right lateral decubitus position. The surrounding skin was prepped with Betadine and draped in a sterile fashion. The patient was checked for sensation in no tenderness elicited. A small rongeur was then used to excise a small specimen from the greater trochanter exposed at the base of the left hip wound. A specimen measuring approximately 1.5 x 1 cm was obtained containing both soft tissue and bone. This was placed in a sterile specimen cup and sent for wound culture. Wounds were redressed with wet to dry dressings followed by a large ABD pad. The patient tolerated the procedure very well.
[2023-02-04] MEDS: Fluticasone Propionate Nasal 16 GM SPRAY 1 SPRAY NOSTRIL-B (08:08)
[2023-02-04] MEDS: Ferrous Sulfate 324 MG TABLET.DR PO (08:08)
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
[2023-02-04] MEDS: cefTRIAXone sodium 2 GM in 0.9 % Sodium Chloride 50 ML IV (10:54)
--- NOTE | 2023-02-04 11:12 | MHC.CM.PN ---
EMR REVIEWED, PLAN FOR PICC LINE PLACEMENT TOMORROW 02/05 AND RETURN TO [facility] W/5-6WKS IV CEFTRIAXONE 2GM Q24HRS, SNF UPDATED.
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
--- NOTE | 2023-02-04 18:06 | HO.PICC ---
PICC Line Insertion NPICC Diagnosis: Bacteremia/UTI Indication: jail antibiotics needed Pertinent Labs: reviewed Technique: Following informed consent including risks, benefits and alternatives and using sterile technique including cap and mask, sterile gown, glove and drape, the right arm was prepped and draped in the usual sterile fashion of full barrier technique with CHG. Following completion of [place] Protocol the skin and soft tissues were anesthetized with 1% Lidocaine plain. Using ultrasound guidance, right brachial vein access was obtained on second attempt. Over an 0.018 wire through peel-away sheath, a 5FR Double lumen PASV PICC line was positioned. Catheter length is 38 CM internal length, at the 0 CM ulises--external length, for a total trimmed length of 38 CM. The procedure was performed in S272. Tip verification was performed by Lalo Hong with Yane 3CG. Tip located in SVC. Ultrasound was used to document vein patency and for needle entry. A formal ultrasound picture and cardiac rhythm strip was recorded. [facility] [employer] Representative has released the line for use and it is currently dressed with a StatLock, Tegaderm, and CHG disc. Verification has been performed for blood return and line patency. (OK to place this PICC line per Dr Norwood) Arm Circumference: 30.5 CM Equipment: [employer] PowerPICC Solo Catheter Type: 5FR Double lumen PASV PICC Lot #: [id number]
[2023-02-04] MEDS: 0.9 % Sodium Chloride Flush 10 ML SYRINGE 5 ML IVFLUSH (20:27)
[2023-02-05 03:28] VITALS: BP 103/54; PULSE 98; RESP 17; TEMP 36.8; O2SAT 98
[2023-02-05] MEDS: 0.9 % Sodium Chloride Flush 10 ML SYRINGE 5 ML IVFLUSH (07:47)
[2023-02-05] MEDS: Ferrous Sulfate 324 MG TABLET.DR PO (07:47)
[2023-02-05 08:00] VITALS: BP 125/73; PULSE 100; RESP 20; TEMP 36.8; O2SAT 96
[2023-02-05 08:30] LABS: Estimated Glomerular Filt Rate > 60
[2023-02-05] MEDS: cefTRIAXone sodium 2 GM in 0.9 % Sodium Chloride 50 ML IV (11:05)
[2023-02-05] MEDS: Fluticasone Propionate Nasal 16 GM SPRAY 1 SPRAY NOSTRIL-B (11:08)
[2023-02-05 11:59] VITALS: BP 125/73; PULSE 102; RESP 20; TEMP 36.8; O2SAT 96
--- NOTE | 2023-02-05 12:31 | MHC.CM.PN ---
PT CLEARED TO RETURN TO [facility] TODAY BLS TRANSPORT VIA [facility] ARRANGED FOR 1330 HOURS
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
== END 2023-02-05 13:51 | disposition skilled nursing facility (03) | DRG 853 ==
LOC: HO.ED 01-31 01:01 → HO.ICU 01-31 04:49 → HO.IMC 02-01 11:44
PROVIDERS: Internal Medicine; Internal Medicine Pulmonary Disease; Admitting Provider Physician Assistant Medical; Emergency Provider Student in an Organized Health Care Education/Training Program; PCP Family Medicine; Visit Provider Student in an Organized Health Care Education/Training Program
DX: A41.51 Sepsis due to Escherichia coli [E. coli] (principal); G82.50 Quadriplegia, unspecified; L89.44 Pressure ulcer of contiguous site of back, buttock and hip, stage 4; R65.21 Severe sepsis with septic shock; T83.511A Infection and inflammatory reaction due to indwelling urethral catheter, initial encounter; D62 Acute posthemorrhagic anemia; I96 Gangrene, not elsewhere classified; M46.28 Osteomyelitis of vertebra, sacral and sacrococcygeal region; E87.1 Hypo-osmolality and hyponatremia; N39.0 Urinary tract infection, site not specified; S14.109S Unspecified injury at unspecified level of cervical spinal cord, sequela; V19.9XXS Pedal cyclist (driver) (passenger) injured in unspecified traffic accident, sequela; D75.839 Thrombocytosis, unspecified; E86.1 Hypovolemia; E88.09 Other disorders of plasma-protein metabolism, not elsewhere classified; B96.1 Klebsiella pneumoniae [K. pneumoniae] as the cause of diseases classified elsewhere; Z93.3 Colostomy status; R31.9 Hematuria, unspecified; Z98.1 Arthrodesis status; Z87.891 Personal history of nicotine dependence; Z79.01 Long term (current) use of anticoagulants; Z79.51 Long term (current) use of inhaled steroids; Z79.899 Other long term (current) drug therapy
CPT/HCPCS: 36415; 36573; 71045; 72192; 80048; 80053; 80202; 81001; 82040; 82565; 82803; 83540; 83605; 83735; 84100; 85014; 85018; 85025; 85027; 85610; 86850; 86900; 86901; 86923; 87040; 87070; 87073; 87077; 87086; 87088; 87186; 87205; 93005; 99285; C1751; C1758; J0696; J2543; J3370; J3371; P9016; P9047

== ENCOUNTER 2023-06-21 18:14 | Inpatient (IN) | payer OTHER, SELFPAY ==
--- NOTE | ~2023-06-21 | XR_ITS ---
EXAMINATION: BILATERAL FEET CLINICAL INFORMATION: Decubitus ulcer heels COMPARISON: None available. TECHNIQUE: 2 views each foot FINDINGS: Right foot: There is some mottled areas of hypodensity seen in the midfoot the largest area in the navicular and cuboid. Vascular calcifications are seen. There is loss of soft tissue overlying the calcaneus with some subcortical lucencies seen. There is a question of an area of cortical destruction and osteomyelitis is suggested. MRI may be useful for further evaluation. A inferior plantar calcaneal spur is present. Left foot: Similar areas of mottled hypodensity are seen in the left, but not as marked as in the right foot. The largest area in the cuboid. Large plantar calcaneal spur is present. No fractures or areas associated with cortical destruction. XR/XR foot RT 2V IMPRESSION: 1. Question of cortical destruction involving the right calcaneus. MRI may be useful for further evaluation. 2. Other incidental findings as described above.
--- NOTE | ~2023-06-21 | XR_ITS ---
EXAMINATION: BILATERAL FEET CLINICAL INFORMATION: Decubitus ulcer heels COMPARISON: None available. TECHNIQUE: 2 views each foot FINDINGS: Right foot: There is some mottled areas of hypodensity seen in the midfoot the largest area in the navicular and cuboid. Vascular calcifications are seen. There is loss of soft tissue overlying the calcaneus with some subcortical lucencies seen. There is a question of an area of cortical destruction and osteomyelitis is suggested. MRI may be useful for further evaluation. A inferior plantar calcaneal spur is present. Left foot: Similar areas of mottled hypodensity are seen in the left, but not as marked as in the right foot. The largest area in the cuboid. Large plantar calcaneal spur is present. No fractures or areas associated with cortical destruction. XR/XR foot LT 2V IMPRESSION: 1. Question of cortical destruction involving the right calcaneus. MRI may be useful for further evaluation. 2. Other incidental findings as described above.
--- NOTE | ~2023-06-21 | CT_ITS ---
EXAMINATION: CT ABDOMEN AND PELVIS WITH CONTRAST CLINICAL INFORMATION: Deep sacral wound with question of osteomyelitis COMPARISON: CT pelvis 01/31/2023 TECHNIQUE: Multidetector volumetric images were obtained from the superior aspect of the liver through the pubic symphysis following administration 85 mL of Omnipaque 350 intravenous contrast. Sagittal and coronal reformatted images were obtained on the technologist's workstation. Oral contrast: No This CT examination was performed using dose optimization techniques as appropriate, variously including the following: *Automated exposure control *Adjustment of mA and/or kV according to patient size (this includes techniques or standardized protocols for targeted exams where dose is matched to indication/reason for exam; i.e. extremities or head) *Use of iterative reconstruction technique DLP: 651 mGy-cm FINDINGS: LUNG BASES: The visualized lung bases are unremarkable. LIVER, GALLBLADDER, AND BILIARY TREE: The liver is enlarged measuring 20.2 cm in cephalocaudad dimension. No focal hepatic lesion or biliary ductal dilatation is present. The gallbladder is unremarkable with no evidence of radiopaque gallstones, gallbladder wall thickening, or obvious pericholecystic inflammatory changes. PANCREAS: Unremarkable. SPLEEN: Spleen is borderline enlarged at 12.2 cm. ADRENAL GLANDS: Unremarkable. KIDNEYS AND URETERS: The kidneys are normal in size, shape, and attenuation. Nonobstructing calculi are present in the right upper pole measuring 5 mm with some smaller calculi present in the right lower pole. The largest stone measures 760 Hounsfield units and is about 6 cm from the posterior axillary line. No hydronephrosis, hydroureter, or left-sided calculi seen. No perinephric stranding. BLADDER: Zuluaga catheter is present GASTROINTESTINAL TRACT: A colostomy is present in the left lower quadrant. There is no evidence of bowel obstruction. The appendix is not seen but there is no evidence of appendicitis evidence of appendicitis. ABDOMINAL WALL: No significant hernia is appreciated. LYMPH NODES: Some shotty, fatty retroperitoneal lymph nodes are present but there is no adenopathy. VASCULAR: There is calcific plaque in the aorta and iliofemoral vessels without aneurysm. PELVIC VISCERA: Soft tissues are now gone which overlie the sacrum. There appears to be packing material in the cavity. Some indistinctness of the posterior surface of the sacrum and osteomyelitis can't be excluded. Again seen is absence/resorption of the coccyx, similar to prior. Additional decubitus ulcers extend down to the ischial tuberosities. No definite bone destruction is seen in this area. OSSEOUS STRUCTURES: Please see discussion above regarding sacrum and ischial tuberosities. Some minimal degenerative changes are present in the spine. Disc spaces and vertebral body heights are well preserved. CT/CT abdomen pelvis w IV con IMPRESSION: 1. Deep ulcers overlie the sacrum and ischial tuberosities. There is some indistinctness of the posterior surface of the sacrum and osteomyelitis can't be excluded. MRI would be more useful for evaluation. 2. Large decubitus ulcers overlying the ischial tuberosities. 3. Other incidental findings as described above including nonobstructing right renal calculi, hepatomegaly and borderline splenomegaly. Fleischner guidelines were followed.
--- NOTE | ~2023-06-21 | IR_ITS ---
CLINICAL HISTORY: IV antibiotics. Quadriplegia PROCEDURES: 1. Real-time ultrasound guided access into the right internal jugular vein after documentation of selective vessel patency, and permanent imaging storing in the patient records. 2. Placement of a 6 Fr, 24 cm tunneled, dual-lumen power injectable Eng CLINICIAN: Ba Saunders PA-C MEDICATIONS: -Lidocaine 1% 10 ml, SQ. -Additional details, please see nursing flowsheet. Complications: None. Estimated blood loss: <5 ml Specimens: None. Contrast: None. Fluoroscopy time: 0.5 min PROCEDURE NOTE: The procedure, risks, benefits, and alternatives were carefully explained to the patient and written informed consent was obtained. The patient was placed supine on the fluoroscopy table. A timeout was performed. The right neck and chest was prepped and draped in usual sterile fashion. Local anesthesia was administered to the right neck access site with lidocaine. Under ultrasound guidance, the right internal jugular vein was accessed with a 5 fr micropuncture set. A permanent ultrasound picture was saved. A peel-away sheath was advanced over the wire. The catheter was measured and cut to length. Next, subcutaneous lidocaine was administered to the chest. Using blunt dissection, a subcutaneous tunnel was created that connects from the upper chest to the venotomy site. The catheter was pulled through the tunnel. The catheter was advanced through the sheath, which was subsequent peeled away. The catheter was tested, flushed, and sutured to the skin with its tip in the cavoatrial junction. The venotomy site was closed with surgical glue. A dry sterile dressing was applied to the chest and the venotomy site. A permanent chest fluoroscopic image was saved demonstrating the catheter tip in the cavoatrial junction. The patient was stable after the procedure was transferred back to the floor. IR/IR cvc insert central tunnel IMPRESSION: Placement of a tunneled dual-lumen Eng catheter PLAN: -The catheter may be used immediately. This procedure was performed by Ba Saunders PA-C, and supervised by Dr. Nuno
--- NOTE | ~2023-06-21 | XR_ITS ---
EXAMINATION: XR CHEST CLINICAL INFORMATION: Cough COMPARISON: Frontal view 01/31/23 TECHNIQUE: Frontal upright portable view of the chest was obtained. FINDINGS: The right-sided vascular catheter tip projects at the expected junction of SVC with right atrium. Cardiac size alice and vasculature are within normal limits. Lung volumes are low normal. No dense consolidation or major zone of atelectasis. No edema. No significant pleural fluid or pneumothorax. Evidence of cervical and upper thoracic instrumentation. Gaseous distention left upper quadrant XR/XR chest 1V IMPRESSION: No acute focal pneumonia or edema
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
[2023-06-21 18:25] VITALS: BP 102/60; BP 98/57; PULSE 80; PULSE 91; RESP 20; TEMP 36.6; O2SAT 98; O2SAT 99; BMI 25.6
[2023-06-21 18:52] LABS: MANUAL DIFF FLAG NO
[2023-06-21 18:56] LABS: Basophils Percent Auto 0.2 % (0-2); Eosinophils Absolute Auto 0.1 X10*3/uL (0.0-0.4); Eosinophils Percent Auto 0.8 % (0-4); Hematocrit 28.6 % (42.0-52.0); Imm Gran Abs Auto 0.07 X10*3/uL (0.00-0.03); Imm Gran Pct Auto 0.7 % (0.0-0.4); Lymphocytes Percent Auto 20.7 % (20-40); Mean Corpuscular Hemoglobin 22.7 pg (27.0-33.0); Mean Corpuscular Volume 81.3 fL (80.0-98.0); Mean Platelet Volume 7.6 fL (9.4-12.4); Monocytes Absolute Auto 0.5 X10*3/uL (0.1-1.2); Neutrophils Percent Auto 72.6 % (45-73); Platelet Count 486 X10*3/uL (160-400); Red Blood Count 3.52 X10*6/uL (4.60-5.80); Red Cell Distribution Width 19.5 % (11.0-16.0); White Blood Count 9.6 X10*3/uL (4.8-10.8)
[2023-06-21 19:10] LABS: INTERNATIONAL NORM RATIO 1.2 (0.9-1.1)
[2023-06-21 19:16] LABS: Alanine Aminotransferase 11 U/L (0-40); Alkaline Phosphatase 120 U/L (39-117); Anion Gap 16 (12-20); Aspartate Amino Transferase 19 U/L (5-37); Bilirubin Total 0.2 mg/dL (0.0-1.0); Blood Urea Nitrogen 10 mg/dL (9-16); Calcium 8.7 mg/dL (8.4-10.2); Carbon Dioxide 24 mmol/L (22-29); Chloride 98 mmol/L (96-108); Creatinine Clr Calc Pharmacy 194.7; Estimated Glomerular Filt Rate > 60; Glucose Random 95 mg/dL (60-115); Magnesium 1.7 mg/dL (1.6-2.6); Potassium 4.1 mmol/L (3.3-5.1); Sodium 134 mmol/L (135-145); Total Protein 6.6 g/dL (6.5-8.0)
--- NOTE | 2023-06-21 19:28 | PHA.MEDREC ---
Pharmacy Consult ? Medication Reconciliation Pharmacy has completed the medication reconciliation. Patient came from [facility] with med list. Shannan Oneil, NaaD
[2023-06-21 19:51] VITALS: BP 95/45; PULSE 94; RESP 20; TEMP 36.8; O2SAT 100
[2023-06-21 20:10] VITALS: BP 99/61; PULSE 94; RESP 16; TEMP 36.8
[2023-06-21 20:29] VITALS: BP 92/59; PULSE 91; RESP 16; TEMP 36.8
--- NOTE | 2023-06-21 21:15 | PC.NURSE ---
Dr. Barrientos is aware of soft BP's 90-100/52-50. First unit of PRBC's infusing, patient tolerating well, no blood transfusion reactions noted.
[2023-06-21 22:57] VITALS: BP 132/64; PULSE 93; RESP 16; TEMP 36.4; O2SAT 99
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
[2023-06-22] MEDS: iohexoL 350 MG/ML 100 ML INFUS..BTL 85 ML IV (00:01)
--- NOTE | 2023-06-22 00:08 | PC.NURSE ---
This RN changed dressing from chronic wound. made aware, sent photos of all wounds. Large wet to dry to buttocks dressing. wound appears to go down to the bone. Blood complete and patient brought to CT.
[2023-06-22 00:10] LABS: Appearance Urine Cloudy; Color Urine Yellow; Glucose Urine UA Negative (Negative); Leukocyte Esterase Urine Moderate (2+) (Negative); Nitrite Urine Positive (Negative); UMIC TRIGGER UACC YES; Urine Blood Trace (Negative); Urine Ketones Trace mg/dL (Negative); Urine Protein Trace mg/dL (Neg-Trace)
[2023-06-22 00:22] LABS: Bacteria Urine 4+ (None Seen); Calcium Oxalate Crystals Urine Present; Other Crystals Urine Present; Squamous Epithelial Cell Urine 0-2 /HPF (0-2); UACC Culture Trigger YES; WBC Clumps Urine Present; WBC Urine >50 /HPF (0-5)
[2023-06-22 00:39] LABS: Lactic Acid 1.1 mmol/L (0.5-2.0)
[2023-06-22 00:40] VITALS: BP 114/76; PULSE 85; RESP 14; TEMP 36.7; O2SAT 92
[2023-06-22 01:15] VITALS: BP 114/76; PULSE 93; RESP 18; TEMP 36.4
[2023-06-22] MEDS: 0.9 % Sodium Chloride Flush 3 ML SYRINGE IVFLUSH ×2 (01:20→08:38)
[2023-06-22] MEDS: Piperacillin Sodium/Tazobactam 4.5 GM in 0.9 % Sodium Chloride 100 ML IV ×4 (05:48→23:59)
[2023-06-22] MEDS: LORazepam 2 MG/ML VIAL 1 MG IVPUSH (06:35)
--- NOTE | 2023-06-22 07:41 | PC.NURSE ---
patient sitting up in bed, antibiotics were not running on pump. restarted antibiotics. patient appears to be in no distress, respirations equal and unlabored.
[2023-06-22] MEDS: vancomycin/NS 2,000 MG/500 ML PLAST..BAG 250 MG IV (08:37)
[2023-06-22 08:39] VITALS: BP 96/62; PULSE 89; RESP 17; TEMP 36.4; O2SAT 98
--- NOTE | 2023-06-22 10:32 | HO.SKINPHOTO ---
Location:Sacrum Category: Stage: Length: Width: Depth: cm Wet to dry dressing applied Location:L-Heel Category: Stage: Length: Width: Depth: cm [place] foam applied Location:R-Heel Category: Stage: Length: Width: Depth: cm [place] foam applied Location:Lower back Category: Stage: Length: Width: Depth: cm [place] foam applied Location:L-Knee Category: Stage: Length: Width: Depth: cm pink foam applied Location: R-knee Category: Stage: Length: Width: Depth: cm [place] foam applied
[2023-06-22] MEDS: Ascorbic Acid 500 MG TABLET PO ×2 (10:48→21:25)
[2023-06-22] MEDS: Baclofen 10 MG TABLET PO ×3 (10:48→21:25)
[2023-06-22] MEDS: Escitalopram Oxalate 5 MG TABLET PO (10:49)
[2023-06-22] MEDS: Ferrous Sulfate 324 MG TABLET.DR PO ×2 (10:50→21:25)
[2023-06-22] MEDS: Midodrine HCl 5 MG TABLET PO ×2 (10:51→18:43)
[2023-06-22] MEDS: Potassium Chloride ER 20 MEQ TAB.ER.PRT PO (10:52)
[2023-06-22] MEDS: Lactated Ringers 1,000 ML 100 ML IVCONT ×2 (11:28→23:00)
--- NOTE | 2023-06-22 11:51 | MHC.CLN ---
RE: CONSULT PT WITH MULTIPLE PRESSURE INJURIES CURRENTLY NPO IF DIET ADVANCES, RECOMMEND ADDING ENSURE MAX BID AND GELATEIN TID TO PROMOTE WOUND HEALING FULL NUTRITION ASSESSMENT TO FOLLOW WHEN INPATIENT
--- NOTE | 2023-06-22 12:32 | PC.NURSE ---
patient had wound care nurse consult, patient wounds evaluated, redressed according to her recommendation. patient colostomy bag replaced. patient linens changed and repositioned in bed. patient tolerated wound eval and redress well, states he has no pain.
[2023-06-22] MEDS: Sennosides 8.6 MG TABLET PO (12:43)
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
--- NOTE | 2023-06-22 13:29 | MHC.CM.PN ---
Addendum entered by Chichi Momin 06/22/23 15:53: Received return telephone call from patient's HCP/daughter, Vandana. T/W explained patient was admitted. Vandana was aware of that and is agreeable to patient returning to [facility] when medically stable. Original Note: Attempted to meet with patient in regards to discharge planning. Patient is currently sleeping. No family present. Attempted to speak with patient's daughter/HCP Shantell at [phone]. Left voicemail requesting a return telephone call. Patient is a prison care resident of [facility]. Return referral made to [facility] via [facility]. Continue to monitor for d/c needs.
--- NOTE | 2023-06-22 14:13 | PC.NURSE ---
patient moved into hospital bed for comfort, repositioned in bed. maintenance fluids running 100ml/hr
--- NOTE | 2023-06-22 14:39 | HO.WOUND ---
Wound Consult: Initial 58yr old male admitted to [facility] on 06/21/23 23:35- See progress notes and H&P for detailed history. Location: Sacrococcygeal (Sacrum, Bilateral Ischium, and Coccyx) Etiology: Stage 4 Pressure Injury POA (Present on Admission) Measurements: 28cm x 32cm x 7cm - see chart details for undermining locations Wound Bed: palpable rough bone exposed; left trochanter, bilateral ischium , and sacrum necrotic tissue scattered areas of yellow slough Drainage / Odor: foul smelling drainage - [place] yellow brown drainage noted no purulence noted at the time of my assessment Edges: Rolled and irregular [place] wound: red pink tissue slow to kelly - no induration no fluctuance Pain: pt denied pain reports minimal feeling Goals of Treatment: Dakins to allow for antimicrobial moist autolytic debridement Location: Right Heel Etiology: Stage 4 Pressure Injury POA (Present on Admission) Measurements: see chart for detailed measurements Wound Bed: palpable rough bone exposed; necrotic tissue scattered areas of yellow slough Drainage / Odor: foul smelling drainage -green [place] drainage noted no purulence noted at the time of my assessment Edges: Irregular Leth[place] wound: red pink tissue slow to kelly nonblanchable purple intact tissue - no induration no fluctuance Pain: pt denied pain reports minimal feeling Goals of Treatment: Dakins to allow for antimicrobial moist autolytic debridement Location:Left Heel Etiology: Unstageable Pressure Injury - POA Measurements:see chart for detailed measurements Wound Bed: Black dry eschar with moist yellow slough edges Drainage / Odor: Scant drainage no odor noted Edges: Irregular Letha wound: red pink hyperpigmented tissue Pain: pt denied pain reports minimal feeling Goals of Treatment: Hydrofiber (Durafiber AG) for antimicrobial moisture management Location:Bilateral Medial Knee Etiology: Unstageable Pressure Injuries POA Measurements: see charting for detailed measurements Wound Bed: Dry yellow slough with central black eschar noted Drainage / Odor: None Edges: Irregular [place] wound: [place] blanchable tissue no induration no fluctuance no warmth Pain: pt denied pain reports minimal feeling Goals of Treatment: Off Load Pressure - Triad to allow for autolytic debridement Location: Medial Lower Back Etiology: Deep Tissue Injury POA Measurements: see charting for detailed measurements Wound Bed: Intact light purple nonblanchable tissue Drainage / Odor: None Edges: Linear attached Letha wound: Red slow to kelly intact tissue Pain: Denies Goals of Treatment:Off Load Pressure protect from friction with Foam dressing Location: Scrotum Etiology: MASD (Moisture Associated Skin Damage) Measurements: 4cm x 6cm x 0.3cm Wound Bed: Full thickness tissue loss over scrotum - red moist tissue Drainage / Odor: moderate amount of serosanguinous drainage Edges: Epibole Letha wound: red erythema Pain: denies pain Goals of Treatment: Moist wound healing with Dakins Follow up in 3-5 days. Recommendations: 1. Sacrococcygeal, scrotum and Right Heel - Cleanse with Saline. Apply Triad to the periwound. Packwound bed with Moist Dakins Gauze roll, cover with dry gauze, ABD pads. Change twice a day. 2. Left Heel - Cleanse with Saline - Apply skin prep to the periwound, cover wound bed with Durafiber AG (available from Storeroom) cover with dry ABD pad secure with tape. Change Daily. 3. Bilateral Knees - Cleanse with Saline, apply Triad to wound bed cover with foam dressing. Change Daily. 4. Lower Back - Off Load Pressure - Apply Skin Prep allow to dry cover with foam dressing. Peel back and assess Q shift change dressing every 3 days or PRN. 5. Turn and Reposition every 2 hours and as needed for patient comfort. 6. Off Load all bony prominences with use of pillows wedges and boots available in the storeroom. 7. Monitor for incontinence and moisture control. - F/C inplace and Ostomy pouch changed see note for details. 8. Provide adequate and supplemental nutrition - Nutrition consult in place. 9. Obtain low air loss mattress. Reconsult wound care team for wound deterioration or wound changes. --
[2023-06-22] MEDS: DAPTOmycin 450 MG in 0.9 % Sodium Chloride 50 ML 100 MG IV (15:24)
--- NOTE | 2023-06-22 15:30 | HO.WOUND ---
Ostomy Note 58yr old male admitted for abnormal lab values and wound evaluation - see H&P and progress notes for details. Pouch noted to be leaking - Red rubber inplace - pt states the surgery was several month ago and he has since had follow up and red rubber remains inplace. The Stoma is pink red moist and within a fold - will likely benefit from convex pouch, not available at the time of pouch leaking - coloplast 1 piece applied oval cut to accommodate red rubbar in place. There is peristomal MASD noted - denuded skin from 2-6 oclock likely impacting pouch adherence - Stomahesive powder not available at the time of pouch change skin prep used in an attempt to provide a protect layer. Pouch adhered. Advised to empty pouch 1/3-1/2 full. Advised to change pouch every 3-5 days or when leaking - do not reinforce with tape.
[2023-06-22 16:00] VITALS: BP 97/54; PULSE 73; RESP 16; TEMP 36.4; O2SAT 96
--- NOTE | 2023-06-22 16:12 | MHC.EDTECH ---
THIS PCT ASSUMED CARE OF PT AT 1500 ,VITALS TAKEN ,PT ON HIS SIDE ,PT COMFORTABLE WATCHING TELEVISION ,NO APPARENT DISTRESS AT THIS TIME ,WILL CONTINUE TO MONITOR .
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
--- NOTE | 2023-06-22 18:44 | PC.NURSE ---
patient borrego cath emptied 700 ml of pink tinged urine output. patient denies pain, patient repositioned in bed to right side. pads changed underneith patient is dry, wound dressings intact. tech at bedside feeding patient dinner. patient is awake and oriented
--- NOTE | 2023-06-22 18:55 | MHC.EDTECH ---
PATIENT WAS FED BY THIS PCT ,PT ON A CLEAR LIQUID DIET ,DRANK 720 ML FLUIDS ,PT WAS REPOSITION UNTO RIGHT SIDE ,WITH PILLOWS ,GERMAN CATHETHER EMPTY 700 ML OUT PUT .
[2023-06-22 20:49] VITALS: BP 80/50; PULSE 86; RESP 18; TEMP 36; O2SAT 99
[2023-06-22] MEDS: Albumin Human 25 % 100 ML IV ×2 (21:17→22:53)
[2023-06-22] MEDS: Pravastatin Sodium 10 MG TABLET PO (21:24)
[2023-06-22 22:00] VITALS: BMI 25.6
[2023-06-22 22:20] VITALS: BP 93/52
[2023-06-22 23:26] LABS: MANUAL DIFF FLAG NO
[2023-06-22 23:29] LABS: Basophils Percent Auto 0.2 % (0-2); Eosinophils Absolute Auto 0.1 X10*3/uL (0.0-0.4); Eosinophils Percent Auto 1.1 % (0-4); Hematocrit 28.1 % (42.0-52.0); Hemoglobin 8.6 g/dl (14.0-18.0); Imm Gran Abs Auto 0.05 X10*3/uL (0.00-0.03); Imm Gran Pct Auto 0.5 % (0.0-0.4); Lymphocytes Absolute Auto 2.1 X10*3/uL (1.2-4.9); Lymphocytes Percent Auto 22.6 % (20-40); Mean Corpuscular HGB Conc 30.6 g/dl (31.0-36.0); Mean Corpuscular Hemoglobin 25.4 pg (27.0-33.0); Mean Corpuscular Volume 82.9 fL (80.0-98.0); Mean Platelet Volume 7.5 fL (9.4-12.4); Monocytes Absolute Auto 0.5 X10*3/uL (0.1-1.2); Monocytes Percent Auto 4.9 % (2-11); Neutrophils Absolute Auto 6.6 x10*3/uL (2.0-8.3); Neutrophils Percent Auto 70.7 % (45-73); Platelet Count 301 X10*3/uL (160-400); Red Blood Count 3.39 X10*6/uL (4.60-5.80); Red Cell Distribution Width 18.9 % (11.0-16.0); White Blood Count 9.4 X10*3/uL (4.8-10.8)
[2023-06-22 23:46] LABS: Anion Gap 13 (12-20); Blood Urea Nitrogen 8 mg/dL (9-16); C Reactive Protein 16.24 mg/dL (< or = 0.50); Carbon Dioxide 22 mmol/L (22-29); Chloride 105 mmol/L (96-108); Creatinine Clr Calc Pharmacy 199.7; Estimated Glomerular Filt Rate > 60; Glucose Random 89 mg/dL (60-115); Potassium 2.8 mmol/L (3.3-5.1); Sodium 137 mmol/L (135-145)
[2023-06-23 00:22] LABS: Erythrocyte Sedimentation Rate 73 MM/HR (0-15)
[2023-06-23 03:13] VITALS: BP 100/57; PULSE 68; RESP 16; TEMP 36; O2SAT 99
[2023-06-23 05:36] LABS: Hematocrit 26.2 % (42.0-52.0)
[2023-06-23] MEDS: Omeprazole 40 MG CAPSULE.DR PO (05:51)
[2023-06-23] MEDS: Piperacillin Sodium/Tazobactam 4.5 GM in 0.9 % Sodium Chloride 100 ML IV ×4 (05:51→23:50)
[2023-06-23 07:08] LABS: Estimated Average Glucose 88 mg/dL; Hemoglobin A1c % 4.7 % (<6.0)
[2023-06-23 07:18] VITALS: BP 100/60; PULSE 76; RESP 16; TEMP 36.1; O2SAT 99
[2023-06-23 12:30] VITALS: BMI 25.6
--- NOTE | 2023-06-23 13:38 | MHC.CLN ---
NUTRITION CURRENTLY NPO FOR POSSIBLE WOUND DEBRIDEMENT. DISCUSSED SUPPLEMENTS FOR WOUND HEALING WITH PATIENT TO START WHEN ABLE TO ADVANCE DIET ORDER. TAKES ENSURE SUPPLEMENT 2 X DAILY AT FACILITY. WILL ADD ENSURE MAX PROTEIN BID (300 KCALS/60 G PROTEIN) AND GELATEIN TID (480 KCALS, 90 G PROTEIN) WHEN ABLE. SUPPLEMENTS PROVIDE 780 KCALS, 150 G PROTEIN. LARGE STAGE 4 SACROCOCCYGEAL WOUND, STAGE 4 RIGHT HEEL, UNSTAGEABLE LEFT HEEL, DTI TO LOWER BACK, UNSTAGEABLE BILATERAL MEDIAL KNEE. QUALIFIES NON SEVERE MALNUTRITION IN THE CONTEXT OF CHRONIC ILLNESS BASED ON SIGNIFICANT WEIGHT LOSS AND MILD DEPLETION OF BODY FAT AND MUSCLE MASS. MONITOR FOR PO INTAKE OF MEALS AND SUPPLEMENTS, DIET ADVANCEMENT, WOUND HEALING.
--- NOTE | 2023-06-23 14:10 | PM.PNGS ---
Subjective Subjective Date of Service: 06/23/23 Interval history: Feels a little better today. Physical Exam Vital Signs: Vital Signs: Last Vital Signs Temp 97.0 F 06/23/23 07:18 Pulse 76 06/23/23 07:18 Resp 16 06/23/23 07:18 BP 100/60 06/23/23 07:18 Pulse Ox 99 06/23/23 07:18 O2 Del Method Room Air 06/23/23 07:18 BMI result Body Mass Index 25.6 Const: General: comfortable, no acute distress and alert Resp: Effort & Inspection: normal respiratory effort Skin: Other: sacral and ischial decubitus ulcer- down to bone in majority of wound and undermining of all superior aspects, less slough this morning, around 80-90% of wound base has good granulation tissue, patchy areas of subq tissue necrosis sharply debrided with scissors, wound edges improved Objective Data Active Medications Acetaminophen (Acetaminophen 325 Mg Tablet) 650 mg PO Q6H PRN PRN Reason: Pain, Mild (Pain Scale 1-3) Albuterol Sulfate (Albuterol Sulfate (0.083%) 2.5 Mg/3 Ml Vial.Neb) 2.5 mg INHALE RQ6H PRN PRN Reason: Shortness Of Breath Or Wheezing Alprazolam (Alprazolam 0.25 Mg Tablet) 0.25 mg PO BID PRN PRN Reason: Anxiety Ascorbic Acid (Ascorbic Acid 500 Mg Tablet) 500 mg PO BID [facility] Last Admin: 06/23/23 08:19 Dose: Not Given Documented By: NAVA Non-Admin Reason: NPO Baclofen (Baclofen 10 Mg Tablet) 10 mg PO TID [facility] Last Admin: 06/23/23 08:19 Dose: Not Given Documented By: NAVA Non-Admin Reason: Medication Discontinued Bisacodyl (Bisacodyl 10 Mg Supp.Rect) 10 mg NE DAILY PRN PRN Reason: Constipation Carbamide Peroxide (Carbamide Peroxide 6.5% Otic 15 Ml Drpbtl) 4 drop EAR-BOTH MOWEFR [facility] Last Admin: 06/23/23 09:41 Dose: Not Given Documented By: NAVA Non-Admin Reason: Med Not Available Escitalopram Oxalate (Escitalopram Oxalate 5 Mg Tablet) 5 mg PO DAILY [facility] Last Admin: 06/23/23 08:19 Dose: Not Given Documented By: NAVA Non-Admin Reason: NPO Ferrous Sulfate (Ferrous Sulfate 324 Mg Tablet.) 324 mg PO BID [facility] Last Admin: 06/23/23 08:19 Dose: Not Given Documented By: NAVA Non-Admin Reason: NPO Fluticasone Propionate (Fluticasone Propionate Nasal 16 Gm [place]) 1 spray NOSTRIL-B DAILY [facility] Last Admin: 06/23/23 08:29 Dose: Not Given Documented By: NAVA Non-Admin Reason: Patient Refused Piperacillin Sod/Tazobactam (Sod 4.5 gm/ Sodium Chloride) 100 mls @ 200 mls/hr IV Q6H [facility] Last Infusion: 06/23/23 12:10 Dose: Infused Documented By: NAVA Lactated Ringer's (Lr) 1,000 mls @ 100 mls/hr IVCONT .Q10H [facility] Last Infusion: 06/23/23 09:09 Dose: Infused Documented By: NAVA Daptomycin 450 mg/ Sodium (Chloride) 59 mls @ 100 mls/hr IV Q24H [facility] Last Infusion: 06/22/23 16:02 Dose: Infused Documented By: TELMA Melatonin (Melatonin 3 Mg Tablet) 6 mg PO BEDTIME PRN PRN Reason: Insomnia Midodrine (Midodrine Hcl 5 Mg Tablet) 5 mg PO TID@0800,1200,1800 [facility] Last Admin: 06/23/23 11:19 Dose: Not Given Documented By: NAVA Non-Admin Reason: NPO Non-Formulary Medication (Fosfomycin Tromethamine) 1 packet PO Q72H [facility] Nystatin (Nystatin Powder 15 Gm Bottle) 1 appl TOPICAL DAILY PRN; Protocol PRN Reason: Rash Omeprazole (Omeprazole 40 Mg Capsule.) 40 mg PO DAILY@0630 [facility] Last Admin: 06/23/23 05:51 Dose: 40 mg Documented By: WALLY Ondansetron HCl (Ondansetron Hcl 4 Mg/2 Ml Vial) 4 mg IVPUSH Q8H PRN PRN Reason: Nausea and Vomiting Potassium Chloride (Potassium Chloride Er 20 Meq Tab.Er.Prt) 20 meq PO DAILY [facility] Last Admin: 06/23/23 08:19 Dose: Not Given Documented By: NAVA Non-Admin Reason: NPO Pravastatin Sodium (Pravastatin Sodium 10 Mg Tablet) 10 mg PO BEDTIME [facility] Last Admin: 06/22/23 21:24 Dose: 10 mg Documented By: WALLY Senna (Sennosides 8.6 Mg Tablet) 8.6 mg PO DAILY@1200 [facility] Last Admin: 06/23/23 11:19 Dose: Not Given Documented By: NAVA Non-Admin Reason: NPO Sodium Biphosphate/Sodium Phosphate (Sodium Phosphate,[place]-Dibasic 133 Ml Enema) 118 ml NE DAILY PRN PRN Reason: Constipation Sodium Chloride (0.9 % Sodium Chloride Flush 3 Ml Syringe) 3 ml IVFLUSH QSHIFT [facility] Last Admin: 06/23/23 07:16 Dose: Not Given Documented By: NAVA Non-Admin Reason: IV Running Sodium Hypochlorite (Sodium Hypochlorite 0.25% 473 Ml Solution) 1 appl TOPICAL DAILY [facility] Last Admin: 06/23/23 08:29 Dose: Not Given Documented By: NAVA Non-Admin Reason: Pt going to surgery for debridement Labs 06/23/23 05:07 06/22/23 23:20 Labs: Laboratory Results - last 24 hr 06/22/23 06/22/23 06/22/23 23:20 23:20 23:20 MCV 82.9 MCH 25.4 L MCHC 30.6 L RDW 18.9 H Plt Count 301 D MPV 7.5 L Immature Gran % (Auto) 0.5 H Neut % (Auto) 70.7 Lymph % (Auto) 22.6 [place] % (Auto) 4.9 Eos % (Auto) 1.1 Baso % (Auto) 0.2 Lymph # (Auto) 2.1 [place] # (Auto) 0.5 Eos # (Auto) 0.1 Baso # (Auto) 0.0 Abs Immat Gran (auto) 0.05 H Absolute Neuts (auto) 6.6 Absolute Nucleated RBC 0.000 Nucleated RBC % (auto) 0.0 ESR 73 H Anion Gap 13 Estim Creat Clear Calc 199.7 Cancelled Estimated GFR > 60 Cancelled Random Glucose 89 Estimat Average Glucose 88 Hemoglobin A1c % 4.7 Calcium 8.0 L D C-Reactive Protein 16.24 H Microbiology Microbiology Results: Microbiology 06/22/23 Unknown Urine Culture - Preliminary Urine Catheterized - Zuluaga Catheter Gram negative re 06/22/23 00:12 Blood Culture - Preliminary Blood - Venous No growth after 24 hours. 06/22/23 00:12 Blood Culture - Preliminary Blood - Venous No growth after 24 hours. Procedures Date of Service Date of Service: 06/23/23 Progress Note: A&P Assessment and plan (1) Sacral decubitus ulcer: Status: Acute Plan 58-year-old near quadriplegic male with chronic sacral decubital ulcer with chronic Zuluaga and colostomy admitted for concern of infected decubitus ulcer. Wound overall improved this morning, areas of patchy necrosis sharply debrided today and dressing changed. Continue dressing change BID with dakins soaked kerlix roll, fluffs and heavy drainage abd dressing. Cont IV abx. Continue supportive measures with frequent repositioning, nutritional support. Time Spent With Patient Time: Total time managing care of this patient today ____ minutes. Quality Stroke Does the patient have a stroke diagnosis?: No VTE Prior VTE?: No VTE Risk Level:: Medical - moderate - high VTE Device Contraindication: N/A - Device Ordered VTE Drug Contraindication: Treatment Not Indicated
[2023-06-23] MEDS: Baclofen 10 MG TABLET PO ×2 (14:51→21:35)
[2023-06-23] MEDS: DAPTOmycin 450 MG in 0.9 % Sodium Chloride 50 ML 100 MG IV (14:51)
--- NOTE | 2023-06-23 14:51 | P.CDIM_ITS ---
PROVIDER RESPONSE TEXT: To clarify, the appropriate diagnosis supported by the clinical indicators: Hypokalemia QUERY TEXT: PHYSICIAN'S DOCUMENTATION REQUEST Date of Query: 06/23/2023 08:05 AM EDT Patient Name: Gary Bradley Admit Date: 06/22/2023 Dear Miguel Angel Damon, A review of the medical record indicates additional documentation may be needed. Please review below and update the documentation accordingly. Clinical Indicators: LAB FINDINGS: potassium 2.8 L Klor-con Based on the above, is there a diagnosis that correlates with these lab findings: Hypokalemia Labs indicate a diagnosis of (please specify) Other (explain)Clinically unable to determine (explain)Thank you, Iva Sharpe, CCS, CDIS Use of terms such as suspected, likely, concern for, or probable (associated with a specific diagnosi s that is being evaluated, monitored, or treated as if it exists) are acceptable and can be coded in the inpatient se tting, when documented at the time of discharge. Please use your independent medical judgment in providing your response. THIS QUERY IS PART OF THE PERMANENT MEDICAL RECORD
--- NOTE | 2023-06-23 14:51 | P.CDIM_ITS ---
PROVIDER RESPONSE TEXT: To clarify, the appropriate diagnosis supported by the clinical indicators: Hypoalbuminemia QUERY TEXT: PHYSICIAN'S DOCUMENTATION REQUEST Date of Query: 06/23/2023 08:04 AM EDT Patient Name: Gary Bradley Admit Date: 06/22/2023 Dear Miguel Angel Damon, A review of the medical record indicates additional documentation may be needed. Please review below and update the documentation accordingly. Clinical Indicators: LAB FINDINGS: albumin 2.0 IV Albumin human Based on the above, is there a diagnosis that correlates with these lab findings: Hypoalbuminemia Labs indicate a diagnosis of (please specify) Other (explain)Clinically unable to determine (explain)Thank you, Iva Sharpe, CCS, CDIS Use of terms such as suspected, likely, concern for, or probable (associated with a specific diagnosi s that is being evaluated, monitored, or treated as if it exists) are acceptable and can be coded in the inpatient se tting, when documented at the time of discharge. Please use your independent medical judgment in providing your response. THIS QUERY IS PART OF THE PERMANENT MEDICAL RECORD
[2023-06-23 15:15] VITALS: BP 112/72; PULSE 75; RESP 16; TEMP 36.1; O2SAT 99
--- NOTE | 2023-06-23 15:18 | MHC.CM.PN ---
per rounds pt may have a debridement not ready for dc
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
[2023-06-23 17:16] LABS: Alanine Aminotransferase 6 U/L (0-40); Albumin Level 2.4 g/dL (3.5-5.0); Alkaline Phosphatase 75 U/L (39-117); Aspartate Amino Transferase 9 U/L (5-37); Bilirubin Direct 0.3 mg/dL (0.0-0.5); Bilirubin Total 0.5 mg/dL (0.0-1.0); Magnesium 1.9 mg/dL (1.6-2.6); Total Protein 5.2 g/dL (6.5-8.0)
[2023-06-23] MEDS: Midodrine HCl 5 MG TABLET PO (17:35)
[2023-06-23] MEDS: Potassium Chloride Packet 20 MEQ PACKET 40 MEQ PO (17:35)
[2023-06-23 20:00] VITALS: BP 85/53; PULSE 75; RESP 18; TEMP 36.2; O2SAT 98
[2023-06-23] MEDS: Ascorbic Acid 500 MG TABLET PO (21:35)
[2023-06-23] MEDS: Pravastatin Sodium 10 MG TABLET PO (21:35)
[2023-06-23] MEDS: Ferrous Sulfate 324 MG TABLET.DR PO (21:35)
[2023-06-23 22:22] VITALS: BP 100/70
[2023-06-24 04:00] VITALS: BP 110/54; PULSE 70; RESP 16; TEMP 36.2; O2SAT 99
[2023-06-24] MEDS: Lactated Ringers 1,000 ML 100 ML IVCONT (04:31)
[2023-06-24] MEDS: Omeprazole 40 MG CAPSULE.DR PO (05:42)
[2023-06-24] MEDS: Piperacillin Sodium/Tazobactam 4.5 GM in 0.9 % Sodium Chloride 100 ML IV ×3 (05:43→17:59)
[2023-06-24 07:17] VITALS: BP 95/57; PULSE 81; RESP 16; TEMP 36.7; O2SAT 99
[2023-06-24] MEDS: Ascorbic Acid 500 MG TABLET PO ×2 (08:40→20:27)
[2023-06-24] MEDS: Baclofen 10 MG TABLET PO ×3 (08:40→20:27)
[2023-06-24] MEDS: Midodrine HCl 5 MG TABLET PO ×3 (08:40→17:59)
[2023-06-24] MEDS: Ferrous Sulfate 324 MG TABLET.DR PO ×2 (08:40→20:27)
[2023-06-24] MEDS: Potassium Chloride ER 20 MEQ TAB.ER.PRT PO (08:40)
[2023-06-24] MEDS: Escitalopram Oxalate 5 MG TABLET PO (08:40)
[2023-06-24 09:26] LABS: Hematocrit 28.8 % (42.0-52.0); Hemoglobin 8.6 g/dl (14.0-18.0)
[2023-06-24 09:44] LABS: Anion Gap 11 (12-20); Blood Urea Nitrogen 5 mg/dL (9-16); Carbon Dioxide 23 mmol/L (22-29); Chloride 104 mmol/L (96-108); Creatinine Clr Calc Pharmacy 216.3; Estimated Glomerular Filt Rate > 60; Glucose Random 79 mg/dL (60-115); Potassium 2.6 mmol/L (3.3-5.1); Sodium 135 mmol/L (135-145)
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
[2023-06-24] MEDS: Potassium Chloride Packet 20 MEQ PACKET 40 MEQ PO (13:17)
[2023-06-24] MEDS: Enoxaparin Sodium 40 MG/0.4 ML SYRINGE SUBCUT (13:17)
[2023-06-24] MEDS: Sennosides 8.6 MG TABLET PO (13:18)
--- NOTE | 2023-06-24 13:38 | P.CDIM_ITS ---
PROVIDER RESPONSE TEXT: To clarify, the appropriate diagnosis supported by the clinical indicators: Other (explain): poor oral inatke QUERY TEXT: PHYSICIAN'S DOCUMENTATION REQUEST Date of Query: 06/24/2023 08:06 AM EDT Patient Name: Gary Bradley Admit Date: 06/22/2023 Dear Miguel Angel Damon, A review of the medical record indicates additional documentation may be needed. Please review below and update the documentation accordingly. Clinical Indicators: Clinical nutrition notes patient qualifies for non-severe malnourished in the context of chronic illn ess and significant weight loss, mild depletion of body fat and muscle mass. Ensure Max BID If possible, please provide an associated diagnosis related to the abnormal BMI, such as: Malnourished mild, moderate, severe Cachexia Anorexia Other (explain)Clinically unable to determine (explain)Thank you, Iva Sharpe, CCS, CDIS Use of terms such as suspected, likely, concern for, or probable (associated with a specific diagnosi s that is being evaluated, monitored, or treated as if it exists) are acceptable and can be coded in the inpatient se tting, when documented at the time of discharge. Please use your independent medical judgment in providing your response. THIS QUERY IS PART OF THE PERMANENT MEDICAL RECORD
[2023-06-24] MEDS: Potassium Chloride/H20 10 MEQ/100 ML PIGGYBACK 100 MEQ IV ×2 (13:59→15:19)
[2023-06-24 15:33] VITALS: BP 99/55; PULSE 76; RESP 18; TEMP 36.4; O2SAT 97
[2023-06-24] MEDS: DAPTOmycin 450 MG in 0.9 % Sodium Chloride 50 ML 100 MG IV (16:29)
[2023-06-24] MEDS: 0.9 % Sodium Chloride Flush 3 ML SYRINGE IVFLUSH (16:34)
[2023-06-24 19:34] VITALS: BP 100/56; PULSE 88; RESP 18; TEMP 36.4; O2SAT 97
[2023-06-24] MEDS: Pravastatin Sodium 10 MG TABLET PO (20:27)
[2023-06-25] MEDS: 0.9 % Sodium Chloride Flush 3 ML SYRINGE IVFLUSH ×2 (00:06→20:42)
[2023-06-25] MEDS: Piperacillin Sodium/Tazobactam 4.5 GM in 0.9 % Sodium Chloride 100 ML IV ×3 (00:07→17:32)
[2023-06-25 04:00] VITALS: BP 102/50; PULSE 83; RESP 17; TEMP 36; O2SAT 98
[2023-06-25] MEDS: Omeprazole 40 MG CAPSULE.DR PO (05:56)
[2023-06-25 07:32] VITALS: BP 100/58; PULSE 90; RESP 17; TEMP 36.3; O2SAT 98
[2023-06-25] MEDS: Midodrine HCl 5 MG TABLET PO ×3 (09:07→17:32)
[2023-06-25] MEDS: Escitalopram Oxalate 5 MG TABLET PO (09:07)
[2023-06-25] MEDS: Ascorbic Acid 500 MG TABLET PO ×2 (09:07→20:42)
[2023-06-25] MEDS: Ferrous Sulfate 324 MG TABLET.DR PO ×2 (09:07→20:42)
[2023-06-25] MEDS: Baclofen 10 MG TABLET PO ×3 (09:07→20:42)
[2023-06-25] MEDS: Potassium Chloride ER 20 MEQ TAB.ER.PRT PO (09:07)
--- NOTE | 2023-06-25 09:36 | MHC.CLN ---
F/U DIET=REGULAR WITH SUPPLEMENTS ENSURE MAX BID AND GELATEIN PLUS TID. SUPPLEMENTS PROVIDE 780 KCALS, 150 G PROTEIN. LARGE STAGE 4 SACROCOCCYGEAL WOUND, STAGE 4 RIGHT HEEL, UNSTAGEABLE LEFT HEEL, DTI TO LOWER BACK, UNSTAGEABLE BILATERAL MEDIAL KNEE. INTAKE APPEARS TO BE 100% AT MEALS. CONSIDER ADDING MVI WITH MINERALS AND ZINC SULFATE TO PROMOTE WOUND. MONITOR FOR PO INTAKE OF MEALS AND SUPPLEMENTS, WOUND HEALING.
[2023-06-25 09:50] LABS: Hematocrit 29.2 % (42.0-52.0); Hemoglobin 8.8 g/dl (14.0-18.0)
[2023-06-25 10:00] LABS: Anion Gap 12 (12-20); Blood Urea Nitrogen 5 mg/dL (9-16); Calcium 8.1 mg/dL (8.4-10.2); Carbon Dioxide 24 mmol/L (22-29); Chloride 103 mmol/L (96-108); Creatinine Clr Calc Pharmacy 229.1; Estimated Glomerular Filt Rate > 60; Glucose Random 96 mg/dL (60-115); Potassium 3.1 mmol/L (3.3-5.1); Sodium 136 mmol/L (135-145)
[2023-06-25] MEDS: Lidocaine HCl 1 % MPF 30 ML VIAL 10 ML SUBCUT (13:14)
[2023-06-25] MEDS: Heparin Sodium,Porcine Flush 500 UNIT/5 ML SYRINGE 1000 UNIT IVFLUSH (13:16)
[2023-06-25] MEDS: Zinc Sulfate 220 MG CAPSULE PO (13:35)
[2023-06-25] MEDS: Potassium Chloride Packet 20 MEQ PACKET 40 MEQ PO (13:35)
[2023-06-25] MEDS: Multivitamin with Minerals Liq 15 ML LIQUID PO (13:35)
[2023-06-25] MEDS: Sennosides 8.6 MG TABLET PO (13:35)
[2023-06-25] MEDS: DAPTOmycin 450 MG in 0.9 % Sodium Chloride 50 ML 100 MG IV (14:56)
[2023-06-25 15:18] VITALS: BP 127/78; PULSE 77; RESP 18; TEMP 36.2; O2SAT 98
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
--- NOTE | 2023-06-25 16:43 | P.CDIM_ITS ---
PROVIDER RESPONSE TEXT: To clarify, the appropriate diagnosis supported by the clinical indicators: Other (explain): possible acute on ch. osteo QUERY TEXT: PHYSICIAN'S DOCUMENTATION REQUEST Date of Query: 06/25/2023 08:09 AM EDT Patient Name: Gary Bradley Admit Date: 06/22/2023 Dear Miguel Angel Damon, A review of the medical record indicates additional documentation may be needed. Please review below and update the documentation accordingly. Documentation on (insert date) indicates Osteomyelitis. Clinical Indicators: ED: Deep sacral wound stage IV with foul-smelling discharge. Clinical impression: Osteomyelitis Surgery 06/23 - sacral and ischial decubitus ulcer down to bone in majority of wound and undermining of all superior aspects, sharply debrided with scissors. CT 06/22 - Deep ulcers overlie the sacrum and ischial tuberosities. There is some indistinctness of t he posterior surface of the sacrum and osteomyelitis cant be excluded. Based on the above, please clarify in the Progress Notes further specificity regarding the type of Os teomyelitis and site: Acute osteomyelitis Subacute osteomyelitis Chronic osteomyelitis Chronic multifocal osteomyelitis Other (explain)Clinically unable to determine (explain)Thank you, Iva Sharpe, CCS, CDIS Use of terms such as suspected, likely, concern for, or probable (associated with a specific diagnosi s that is being evaluated, monitored, or treated as if it exists) are acceptable and can be coded in the inpatient se tting, when documented at the time of discharge. Please use your independent medical judgment in providing your response. THIS QUERY IS PART OF THE PERMANENT MEDICAL RECORD
--- NOTE | 2023-06-25 16:43 | P.CDIM_ITS ---
PROVIDER RESPONSE TEXT: To clarify, the appropriate diagnosis supported by the clinical indicators: Other (explain): asymptomatic bacteruria QUERY TEXT: PHYSICIAN'S DOCUMENTATION REQUEST Date of Query: 06/25/2023 09:06 AM EDT Patient Name: Gary Bradley Admit Date: 06/22/2023 Dear Miguel Angel Damon, A review of the medical record indicates additional documentation may be needed. Please review below and update the documentation accordingly. Clinical Indicators: LABS: Urine cloudy Nitrite + leukocyte 2+(moderate) Urine RB 11-20 H Urine WBC >50 Bacteria 4+ Chronic borrego catheter, Colostomy Micro: Pseudomonas aeruginosa Piperacillin Based on the above, is there a diagnosis that correlates with these lab findings: UTI UTI due to chronic indwelling borrego catheter please specify if other device Not treating UTI Other (explain)Clinically unable to determine (explain)Thank you, Iva Sharpe, CCS, CDIS Use of terms such as suspected, likely, concern for, or probable (associated with a specific diagnosi s that is being evaluated, monitored, or treated as if it exists) are acceptable and can be coded in the inpatient se tting, when documented at the time of discharge. Please use your independent medical judgment in providing your response. THIS QUERY IS PART OF THE PERMANENT MEDICAL RECORD
[2023-06-25 19:26] VITALS: BP 97/62; PULSE 105; RESP 18; TEMP 36.6; O2SAT 95
[2023-06-25] MEDS: Pravastatin Sodium 10 MG TABLET PO (20:43)
[2023-06-26 03:48] VITALS: BP 106/73; PULSE 96; RESP 16; TEMP 36.7; O2SAT 97
[2023-06-26] MEDS: Omeprazole 40 MG CAPSULE.DR PO (06:18)
[2023-06-26] MEDS: Piperacillin Sodium/Tazobactam 4.5 GM in 0.9 % Sodium Chloride 100 ML IV ×4 (06:18→18:02)
[2023-06-26 07:22] VITALS: BP 121/72; PULSE 87; RESP 18; TEMP 36.1; O2SAT 97
[2023-06-26] MEDS: Baclofen 10 MG TABLET PO ×3 (10:08→20:06)
[2023-06-26] MEDS: Ascorbic Acid 500 MG TABLET PO ×2 (10:08→20:05)
[2023-06-26] MEDS: Zinc Sulfate 220 MG CAPSULE PO (10:08)
[2023-06-26] MEDS: Potassium Chloride ER 20 MEQ TAB.ER.PRT PO (10:09)
[2023-06-26] MEDS: Escitalopram Oxalate 5 MG TABLET PO (10:09)
[2023-06-26] MEDS: Ferrous Sulfate 324 MG TABLET.DR PO ×2 (10:09→20:05)
[2023-06-26] MEDS: Multivitamin with Minerals Liq 15 ML LIQUID PO (10:09)
[2023-06-26] MEDS: Midodrine HCl 5 MG TABLET PO ×3 (10:10→18:02)
[2023-06-26] MEDS: 0.9 % Sodium Chloride Flush 3 ML SYRINGE IVFLUSH ×3 (10:35→20:05)
[2023-06-26] MEDS: Sennosides 8.6 MG TABLET PO (12:08)
[2023-06-26 12:31] VITALS: BP 98/56; PULSE 79; RESP 18; TEMP 36.6; O2SAT 99
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
[2023-06-26] MEDS: DAPTOmycin 450 MG in 0.9 % Sodium Chloride 50 ML 100 MG IV (14:47)
[2023-06-26 15:04] LABS: Hematocrit 28.9 % (42.0-52.0); Hemoglobin 8.6 g/dl (14.0-18.0)
[2023-06-26 15:10] VITALS: BP 112/61; PULSE 84; RESP 18; TEMP 36.8; O2SAT 95
[2023-06-26 15:15] LABS: Potassium 3.7 mmol/L (3.3-5.1)
[2023-06-26 19:37] VITALS: BP 99/65; PULSE 79; RESP 16; TEMP 36.8
[2023-06-26] MEDS: Pravastatin Sodium 10 MG TABLET PO (20:05)
--- NOTE | 2023-06-26 22:19 | P.CNID_ITS ---
History of Present Illness Data of Consult Service Date: 06/26/23 Requesting physician: Miguel Angel Damon Primary Care Provider: Obinna Blanco MD HPI Reason for consult: infected sacral decubitis He presents with weakness for last week. He was found to have leukocytosis, He has Pseudomonas found in urine. He was treated six weeks Ceftriaxone 02/18/2023 for sacral decubiti. I dont see evidence of Plastic Surgery or attempt for closure. Review of Systems 2 Review of Systems: Yes all other systems are reviewed and are negative PMFSH Past Medical History Medical History Stage IV decubitus ulcer Decubitus ulcer of ankle, stage 4 Quadriplegia Chronic anticoagulation Family History Family history: reviewed and not pertinent Surgical History Surgical History S/P colostomy S/P cervical spinal fusion Status post tracheostomy Social History Social History Household Members: None Household Members Other:: [facility] Housing: Skilled Nursing Do you presently have visiting nurse or other home services: Yes Unable to assess alcohol history related to: Unknown Patient Tobacco Use Status: Former Tobacco user Tobacco use type: Cigarette e-Cigarette/Vaping Use: Never Used Second Hand Smoke Exposure: No Advance Directives Date on File: 01/31/23 service: No Current occupational status: disabled Meds Allergies Allergy/AdvReac Type Severity Reaction Status Date / Time No Known Allergies Allergy Verified 06/21/23 18:29 Active Medications: Current Medications Acetaminophen (Acetaminophen 325 Mg Tablet) 650 mg PO Q6H PRN PRN Reason: Pain, Mild (Pain Scale 1-3) Albuterol Sulfate (Albuterol Sulfate (0.083%) 2.5 Mg/3 Ml Vial.Neb) 2.5 mg INHALE RQ6H PRN PRN Reason: Shortness Of Breath Or Wheezing Alprazolam (Alprazolam 0.25 Mg Tablet) 0.25 mg PO BID PRN PRN Reason: Anxiety Apixaban (Apixaban 2.5 Mg Tablet) 2.5 mg PO BID [place] Last Admin: 06/26/23 20:07 Dose: Not Given Ascorbic Acid (Ascorbic Acid 500 Mg Tablet) 500 mg PO BID [facility] Last Admin: 06/26/23 20:05 Dose: 500 mg Baclofen (Baclofen 10 Mg Tablet) 10 mg PO TID [facility] Last Admin: 06/26/23 20:06 Dose: 10 mg Bisacodyl (Bisacodyl 10 Mg Supp.Rect) 10 mg NV DAILY PRN PRN Reason: Constipation Carbamide Peroxide (Carbamide Peroxide 6.5% Otic 15 Ml Drpbtl) 4 drop EAR-BOTH MOWEFR [facility] Last Admin: 06/25/23 09:12 Dose: Not Given Escitalopram Oxalate (Escitalopram Oxalate 5 Mg Tablet) 5 mg PO DAILY [facility] Last Admin: 06/26/23 10:09 Dose: 5 mg Ferrous Sulfate (Ferrous Sulfate 324 Mg Tablet.) 324 mg PO BID [facility] Last Admin: 06/26/23 20:05 Dose: 324 mg Fluticasone Propionate (Fluticasone Propionate Nasal 16 Gm [place]) 1 spray NOSTRIL-B DAILY [facility] Last Admin: 06/26/23 10:19 Dose: Not Given Piperacillin Sod/Tazobactam (Sod 4.5 gm/ Sodium Chloride) 100 mls @ 200 mls/hr IV Q6H [facility] Last Infusion: 06/26/23 18:32 Dose: Infused Daptomycin 450 mg/ Sodium (Chloride) 59 mls @ 100 mls/hr IV Q24H [facility] Last Infusion: 06/26/23 16:09 Dose: Infused Melatonin (Melatonin 3 Mg Tablet) 6 mg PO BEDTIME PRN PRN Reason: Insomnia Midodrine (Midodrine Hcl 5 Mg Tablet) 5 mg PO TID@0800,1200,1800 [facility] Last Admin: 06/26/23 18:02 Dose: 5 mg Multivitamins/Minerals (Multivitamin With Minerals Liq 15 Ml Liquid) 15 ml PO DAILY [facility] Last Admin: 06/26/23 10:09 Dose: 15 ml Non-Formulary Medication (Fosfomycin Tromethamine) 1 packet PO Q72H [facility] Nystatin (Nystatin Powder 15 Gm Bottle) 1 appl TOPICAL DAILY PRN; Protocol PRN Reason: Rash Omeprazole (Omeprazole 40 Mg Capsule.) 40 mg PO DAILY@0630 [facility] Last Admin: 06/26/23 06:18 Dose: 40 mg Ondansetron HCl (Ondansetron Hcl 4 Mg/2 Ml Vial) 4 mg IVPUSH Q8H PRN PRN Reason: Nausea and Vomiting Potassium Chloride (Potassium Chloride Er 20 Meq Tab.Er.Prt) 20 meq PO DAILY [facility] Last Admin: 06/26/23 10:09 Dose: 20 meq Pravastatin Sodium (Pravastatin Sodium 10 Mg Tablet) 10 mg PO BEDTIME [facility] Last Admin: 06/26/23 20:05 Dose: 10 mg Senna (Sennosides 8.6 Mg Tablet) 8.6 mg PO DAILY@1200 [facility] Last Admin: 06/26/23 12:08 Dose: 8.6 mg Sodium Biphosphate/Sodium Phosphate (Sodium Phosphate,[place]-Dibasic 133 Ml Enema) 118 ml NV DAILY PRN PRN Reason: Constipation Sodium Chloride (0.9 % Sodium Chloride Flush 3 Ml Syringe) 3 ml IVFLUSH QSHIFT [facility] Last Admin: 06/26/23 20:05 Dose: 3 ml Sodium Hypochlorite (Sodium Hypochlorite 0.25% 473 Ml Solution) 1 appl TOPICAL DAILY [facility] Last Admin: 06/26/23 11:25 Dose: Not Given Zinc Sulfate (Zinc Sulfate 220 Mg Capsule) 220 mg PO DAILY [facility] Last Admin: 06/26/23 10:08 Dose: 220 mg Home Medications Medication Instructions Recorded Confirmed Last Taken Type acetaminophen 650 mg tablet 650 mg PO Q4H PRN Pain 01/31/23 06/21/23 Unknown History albuterol sulfate 2.5 mg/3 mL 2.5 mg inhalation Q6H PRN 01/31/23 06/21/23 Unknown History (0.083 %) solution for nebulization Shortness Of Breath Or Wheezing alprazolam 0.25 mg tablet 0.25 mg PO BID PRN Anxiety 01/31/23 06/21/23 Unknown History apixaban 2.5 mg tablet 2.5 mg PO BID 01/31/23 06/21/23 Unknown History baclofen 10 mg tablet 10 mg PO TID 01/31/23 06/21/23 Unknown History bisacodyl 10 mg rectal suppository 10 mg NV DAILY PRN Constipation 01/31/23 06/21/23 Unknown History carbamide peroxide 6.5 % ear drops 4 drp otic (ears) MOWEFR 01/31/23 06/21/23 Unknown History (Debrox) diclofenac sodium 1 % topical gel 2 g topical BID 01/31/23 06/21/23 Unknown History fluticasone propionate 50 1 spray intranasal DAILY 01/31/23 06/21/23 Unknown History mcg/actuation nasal spray,suspension omeprazole magnesium 20 mg 40 mg PO DAILY 01/31/23 06/21/23 Unknown History tablet,delayed release (Prilosec OTC) potassium chloride 20 mEq 20 meq PO DAILY 01/31/23 06/21/23 Unknown History tablet,extended release(part/cryst) (Klor-Con M) pravastatin 10 mg tablet 10 mg PO BEDTIME 01/31/23 06/21/23 Unknown History sennosides 8.6 mg tablet 8.6 mg PO DAILY@1200 01/31/23 06/21/23 Unknown History sodium phosphates 19 gram-7 118 ml NV NEEDED 01/31/23 06/21/23 Unknown History gram/118 mL enema (Fleet Enema) Saccharomyces boulardii 1 cap PO BID 06/21/23 06/21/23 Unknown History ascorbic acid (vitamin C) 500 mg 500 mg PO BID 06/21/23 06/21/23 Unknown History tablet cephalexin 500 mg capsule 500 mg PO TID WOUND INFECTION 06/21/23 06/21/23 Unknown History citalopram 10 mg tablet 10 mg PO DAILY 06/21/23 06/21/23 Unknown History ferrous gluconate 325 mg (36 mg 325 mg PO BID 06/21/23 06/21/23 Unknown History iron) tablet fosfomycin tromethamine 3 gram 1 packet PO Q72H ESBL CAUTI 06/21/23 06/21/23 Unknown History oral packet midodrine 5 mg tablet 5 mg PO TID@0800,1200,1800 06/21/23 06/21/23 Unknown History nystatin 100,000 unit/gram topical 1 appl topical DAILY PRN Rash 06/21/23 06/21/23 Unknown History powder sodium hypochlorite 0.25 % 1 appl topical DAILY 06/21/23 06/21/23 Unknown History solution (Dakin's Solution) Physical Exam 2 Vital Signs: Vital Signs: Last Vital Signs Temp 98.2 F 06/26/23 19:37 Pulse 79 06/26/23 19:37 Resp 16 06/26/23 19:37 BP 99/65 06/26/23 19:37 Pulse Ox 95 06/26/23 15:10 O2 Del Method Room Air 06/26/23 15:10 BMI result Body Mass Index 25.6 Extrem: Other: clean sacral decubiti open Results Labs 06/26/23 14:34 06/26/23 14:34 Labs: Short CBC 06/26/23 Range/Units 14:34 Hgb 8.6 L (14.0-18.0) g/dl Hct 28.9 L (42.0-52.0) % BMP 06/26/23 14:34 Potassium 3.7 Microbiology Microbiology Results: Microbiology 06/22/23 Unknown Urine Catheterized - Zuluaga Catheter Urine Culture - Final Pseudomonas aeruginosa 06/22/23 00:12 Blood - Venous Blood Culture - Preliminary No growth after 48 hours. 06/22/23 00:12 Blood - Venous Blood Culture - Preliminary No growth after 48 hours. Assessment and Plan (1) Sacral decubitus ulcer: Status: Acute (2) Osteomyelitis: Status: Acute This is all chronic infection bone and was treated six months ago. He has some superfical infection open wound possible. Urine has Pseudomonas,possible chronic. Plan Obtain culture decubitis bone biopsy if able. Otherwise po Doxycycline 100 mg bid for a month and follow with Plastic Surgery outpatient Need to have clear plan for Wound Closure or not before any further IV antibiotics. Time Spent With Patient Time: Total time managing care of this patient today ____ minutes.
[2023-06-27] MEDS: Piperacillin Sodium/Tazobactam 4.5 GM in 0.9 % Sodium Chloride 100 ML IV ×3 (00:06→13:03)
[2023-06-27 03:41] VITALS: BP 97/63; PULSE 107; RESP 16; TEMP 36.2; O2SAT 96
[2023-06-27] MEDS: Omeprazole 40 MG CAPSULE.DR PO (05:37)
[2023-06-27 07:47] VITALS: BP 106/76; PULSE 105; RESP 20; TEMP 36.8; O2SAT 98
[2023-06-27] MEDS: Ascorbic Acid 500 MG TABLET PO ×2 (08:07→21:42)
[2023-06-27] MEDS: Zinc Sulfate 220 MG CAPSULE PO (08:07)
[2023-06-27] MEDS: Potassium Chloride ER 20 MEQ TAB.ER.PRT PO (08:07)
[2023-06-27] MEDS: Ferrous Sulfate 324 MG TABLET.DR PO ×2 (08:07→21:42)
[2023-06-27] MEDS: Midodrine HCl 5 MG TABLET PO ×3 (08:07→17:37)
[2023-06-27] MEDS: Multivitamin with Minerals Liq 15 ML LIQUID PO (08:07)
[2023-06-27] MEDS: Baclofen 10 MG TABLET PO ×3 (08:07→21:41)
[2023-06-27] MEDS: Escitalopram Oxalate 5 MG TABLET PO (08:07)
[2023-06-27] MEDS: 0.9 % Sodium Chloride Flush 3 ML SYRINGE IVFLUSH ×3 (08:08→21:43)
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
--- NOTE | 2023-06-27 11:54 | PC.NURSE ---
MD Damon notified Pt having clots in FC bag and tubing, urine tinged red, Eliquis held.
[2023-06-27 12:33] VITALS: BP 93/57; PULSE 112
[2023-06-27] MEDS: Sennosides 8.6 MG TABLET PO (13:03)
[2023-06-27 15:28] VITALS: BP 125/69; PULSE 99; RESP 16; TEMP 36.8; O2SAT 97
[2023-06-27 17:37] VITALS: BP 117/66; PULSE 115
[2023-06-27 19:27] VITALS: BP 117/66; PULSE 99; RESP 17; TEMP 36.3; O2SAT 99
[2023-06-27] MEDS: Pravastatin Sodium 10 MG TABLET PO (21:42)
[2023-06-28 02:47] VITALS: BP 105/82; PULSE 74; RESP 18; TEMP 36; O2SAT 98
[2023-06-28] MEDS: Omeprazole 40 MG CAPSULE.DR PO (05:25)
--- NOTE | 2023-06-28 06:27 | PC.NURSE ---
pt in room 345 refused ordered wound dsg change. Cinder Pitman Marianna Hernandez was notified. Marianna replied okay.
[2023-06-28 07:14] VITALS: BP 100/62; PULSE 97; RESP 16; TEMP 36.3; O2SAT 99
--- NOTE | 2023-06-28 09:10 | PM.PNGS ---
Subjective Subjective Date of Service: 06/28/23 Interval history: Bone biospy requested by medicine. Patient agreeable. Physical Exam Vital Signs: Vital Signs: Last Vital Signs Temp 97.3 F 06/28/23 07:14 Pulse 97 06/28/23 07:14 Resp 16 06/28/23 07:14 BP 100/62 06/28/23 07:14 Pulse Ox 99 06/28/23 07:14 O2 Del Method Room Air 06/28/23 07:14 BMI result Body Mass Index 25.6 Const: General: no acute distress and alert Nutritional Appearance: cachectic and malnourished Skin: Other: decubitus ulcer- wound overall much improved and granulating, wound edges less macerated Objective Data Active Medications Acetaminophen (Acetaminophen 325 Mg Tablet) 650 mg PO Q6H PRN PRN Reason: Pain, Mild (Pain Scale 1-3) Albuterol Sulfate (Albuterol Sulfate (0.083%) 2.5 Mg/3 Ml Vial.Neb) 2.5 mg INHALE RQ6H PRN PRN Reason: Shortness Of Breath Or Wheezing Alprazolam (Alprazolam 0.25 Mg Tablet) 0.25 mg PO BID PRN PRN Reason: Anxiety Apixaban (Apixaban 2.5 Mg Tablet) 2.5 mg PO BID [facility] Last Admin: 06/27/23 21:50 Dose: Not Given Documented By: SELINA Non-Admin Reason: Patient Refused Ascorbic Acid (Ascorbic Acid 500 Mg Tablet) 500 mg PO BID [facility] Last Admin: 06/27/23 21:42 Dose: 500 mg Documented By: SELINA Baclofen (Baclofen 10 Mg Tablet) 10 mg PO TID [facility] Last Admin: 06/27/23 21:41 Dose: 10 mg Documented By: SELINA Bisacodyl (Bisacodyl 10 Mg Supp.Rect) 10 mg UT DAILY PRN PRN Reason: Constipation Carbamide Peroxide (Carbamide Peroxide 6.5% Otic 15 Ml Drpbtl) 4 drop EAR-BOTH MOWEFR [facility] Last Admin: 06/25/23 09:12 Dose: Not Given Documented By: RO Non-Admin Reason: Med Not Available Escitalopram Oxalate (Escitalopram Oxalate 5 Mg Tablet) 5 mg PO DAILY [facility] Last Admin: 06/27/23 08:07 Dose: 5 mg Documented By: LD Ferrous Sulfate (Ferrous Sulfate 324 Mg Tablet.) 324 mg PO BID [facility] Last Admin: 06/27/23 21:42 Dose: 324 mg Documented By: SELINA Fluticasone Propionate (Fluticasone Propionate Nasal 16 Gm [place]) 1 spray NOSTRIL-B DAILY [facility] Last Admin: 06/27/23 08:20 Dose: Not Given Documented By: LD Non-Admin Reason: refused Melatonin (Melatonin 3 Mg Tablet) 6 mg PO BEDTIME PRN PRN Reason: Insomnia Midodrine (Midodrine Hcl 5 Mg Tablet) 5 mg PO TID@0800,1200,1800 [facility] Last Admin: 06/27/23 17:37 Dose: 5 mg Documented By: LD Multivitamins/Minerals (Multivitamin With Minerals Liq 15 Ml Liquid) 15 ml PO DAILY [facility] Last Admin: 06/27/23 08:07 Dose: 15 ml Documented By: LD Non-Formulary Medication (Fosfomycin Tromethamine) 1 packet PO Q72H [facility] Nystatin (Nystatin Powder 15 Gm Bottle) 1 appl TOPICAL DAILY PRN; Protocol PRN Reason: Rash Omeprazole (Omeprazole 40 Mg Capsule.) 40 mg PO DAILY@0630 [facility] Last Admin: 06/28/23 05:25 Dose: 40 mg Documented By: SELINA Ondansetron HCl (Ondansetron Hcl 4 Mg/2 Ml Vial) 4 mg IVPUSH Q8H PRN PRN Reason: Nausea and Vomiting Potassium Chloride (Potassium Chloride Er 20 Meq Tab.Er.Prt) 20 meq PO DAILY [facility] Last Admin: 06/27/23 08:07 Dose: 20 meq Documented By: LD Pravastatin Sodium (Pravastatin Sodium 10 Mg Tablet) 10 mg PO BEDTIME [facility] Last Admin: 06/27/23 21:42 Dose: 10 mg Documented By: SELINA Senna (Sennosides 8.6 Mg Tablet) 8.6 mg PO DAILY@1200 [facility] Last Admin: 06/27/23 13:03 Dose: 8.6 mg Documented By: LD Sodium Biphosphate/Sodium Phosphate (Sodium Phosphate,[place]-Dibasic 133 Ml Enema) 118 ml [place] DAILY PRN PRN Reason: Constipation Sodium Chloride (0.9 % Sodium Chloride Flush 3 Ml Syringe) 3 ml IVFLUSH QSHIFT [facility] Last Admin: 06/27/23 21:43 Dose: 3 ml Documented By: SELINA Sodium Hypochlorite (Sodium Hypochlorite 0.25% 473 Ml Solution) 1 appl TOPICAL DAILY [facility] Last Admin: 06/27/23 08:15 Dose: 1 appl Documented By: LD Zinc Sulfate (Zinc Sulfate 220 Mg Capsule) 220 mg PO DAILY [facility] Last Admin: 06/27/23 08:07 Dose: 220 mg Documented By: LD Labs 06/26/23 14:34 06/26/23 14:34 Procedures Date of Service Date of Service: 06/28/23 Progress Note: A&P Assessment and plan (1) Sacral decubitus ulcer: Status: Acute Plan Bone biopsy performed at bedside, informed consent obtained. Decubitis ulcer wound cleansed with betadine and sacral bone biopsy obtained x3 using ronjour. Small amount of oozing noted at site which resolved with pressure. Patient tolerated the procedure well. Wound dressed with dakins kerlix roll and heavy drainage dressing following. Overall wound improving. Time Spent With Patient Time: Total time managing care of this patient today ____ minutes. Quality Stroke Does the patient have a stroke diagnosis?: No VTE Prior VTE?: No VTE Risk Level:: Medical - moderate - high VTE Device Contraindication: N/A - Device Ordered VTE Drug Contraindication: Treatment Not Indicated
[2023-06-28] MEDS: Multivitamin with Minerals Liq 15 ML LIQUID PO (11:13)
[2023-06-28] MEDS: Zinc Sulfate 220 MG CAPSULE PO (11:13)
[2023-06-28] MEDS: Potassium Chloride ER 20 MEQ TAB.ER.PRT PO (11:14)
[2023-06-28] MEDS: Baclofen 10 MG TABLET PO ×3 (11:14→21:15)
[2023-06-28] MEDS: Ferrous Sulfate 324 MG TABLET.DR PO ×2 (11:14→21:16)
[2023-06-28] MEDS: Escitalopram Oxalate 5 MG TABLET PO (11:14)
[2023-06-28] MEDS: Ascorbic Acid 500 MG TABLET PO ×2 (11:14→21:15)
[2023-06-28] MEDS: Apixaban 2.5 MG TABLET PO ×2 (11:15→21:15)
[2023-06-28] MEDS: Carbamide Peroxide 6.5% Otic 15 ML DRPBTL 4 DROP EAR-BOTH (11:15)
[2023-06-28] MEDS: Sennosides 8.6 MG TABLET PO (11:48)
[2023-06-28] MEDS: Midodrine HCl 5 MG TABLET PO ×2 (11:48→17:27)
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
--- NOTE | 2023-06-28 13:21 | MHC.CM.PN ---
per rounds pt not ready for dc at this time
--- NOTE | 2023-06-28 14:15 | MHC.CLN ---
F/U DIET=REGULAR WITH SUPPLEMENTS ENSURE MAX BID AND GELATEIN PLUS TID. SUPPLEMENTS PROVIDE 780 KCALS, 150 G PROTEIN. PO INTAKE APPEARS TO BE 75-100%. SKIN WITH SIGNIFICANT WOUNDS. RECEIVING VITAMIN C, MVI WITH MINERALS AND ZINC SULFATE TO PROMOTE WOUND HEALING. FOLLOW FOR PO INTAKE OF MEALS AND SUPPLEMENTS, WOUND HEALING.
[2023-06-28 15:19] VITALS: BP 129/64; PULSE 104; RESP 16; TEMP 37.1; O2SAT 99
[2023-06-28] MEDS: 0.9 % Sodium Chloride Flush 3 ML SYRINGE IVFLUSH ×2 (16:04→21:16)
[2023-06-28 19:34] VITALS: BP 133/80; PULSE 100; RESP 17; TEMP 36.9; O2SAT 99
[2023-06-28] MEDS: Pravastatin Sodium 10 MG TABLET PO (21:15)
[2023-06-29] MEDS: ALPRAZolam 0.25 MG TABLET PO ×2 (00:12→20:45)
[2023-06-29 03:54] VITALS: BP 130/62; PULSE 100; RESP 18; TEMP 37; O2SAT 97
[2023-06-29] MEDS: Omeprazole 40 MG CAPSULE.DR PO (05:20)
[2023-06-29 07:29] VITALS: BP 96/58; PULSE 96; RESP 20; TEMP 36.4; O2SAT 99
[2023-06-29] MEDS: Multivitamin with Minerals Liq 15 ML LIQUID PO (09:25)
[2023-06-29] MEDS: Potassium Chloride ER 20 MEQ TAB.ER.PRT PO (09:25)
[2023-06-29] MEDS: Escitalopram Oxalate 5 MG TABLET PO (09:25)
[2023-06-29] MEDS: Midodrine HCl 5 MG TABLET PO ×3 (09:26→18:24)
[2023-06-29] MEDS: Baclofen 10 MG TABLET PO ×3 (09:26→20:45)
[2023-06-29] MEDS: Apixaban 2.5 MG TABLET PO ×2 (09:26→20:44)
[2023-06-29] MEDS: Ascorbic Acid 500 MG TABLET PO ×2 (09:26→20:45)
[2023-06-29] MEDS: Ferrous Sulfate 324 MG TABLET.DR PO ×2 (09:26→20:44)
[2023-06-29] MEDS: Zinc Sulfate 220 MG CAPSULE PO (09:26)
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
[2023-06-29] MEDS: Sennosides 8.6 MG TABLET PO (12:35)
[2023-06-29] MEDS: 0.9 % Sodium Chloride Flush 3 ML SYRINGE IVFLUSH ×2 (15:27→20:45)
[2023-06-29 15:32] VITALS: BP 104/69; PULSE 92; RESP 20; TEMP 37.1; O2SAT 99
[2023-06-29] MEDS: Acetaminophen 325 MG TABLET 650 MG PO (16:43)
[2023-06-29 19:48] VITALS: BP 98/58; PULSE 98; RESP 19; TEMP 36.3; O2SAT 96
[2023-06-29] MEDS: Melatonin 3 MG TABLET 6 MG PO (20:44)
[2023-06-29] MEDS: Pravastatin Sodium 10 MG TABLET PO (20:44)
[2023-06-29] MEDS: Piperacillin Sodium/Tazobactam 3.375 GM in 0.9 % Sodium Chloride 50 ML IV (21:40)
[2023-06-30 02:50] VITALS: BP 97/62; PULSE 95; RESP 18; TEMP 36.6; O2SAT 96
--- NOTE | 2023-06-30 03:23 | PC.NURSE ---
wound care done to sacral area around 03am. Pt tolerated well.
[2023-06-30] MEDS: Piperacillin Sodium/Tazobactam 3.375 GM in 0.9 % Sodium Chloride 50 ML IV ×2 (03:25→08:18)
[2023-06-30] MEDS: Omeprazole 40 MG CAPSULE.DR PO (05:38)
[2023-06-30 07:05] VITALS: BP 106/70; PULSE 90; RESP 16; TEMP 36; O2SAT 97
[2023-06-30] MEDS: Zinc Sulfate 220 MG CAPSULE PO (08:17)
[2023-06-30] MEDS: Baclofen 10 MG TABLET PO ×3 (08:17→20:34)
[2023-06-30] MEDS: 0.9 % Sodium Chloride Flush 3 ML SYRINGE IVFLUSH ×2 (08:17→20:36)
[2023-06-30] MEDS: Midodrine HCl 5 MG TABLET PO ×3 (08:17→17:28)
[2023-06-30] MEDS: Ferrous Sulfate 324 MG TABLET.DR PO ×2 (08:17→20:34)
[2023-06-30] MEDS: Potassium Chloride ER 20 MEQ TAB.ER.PRT PO (08:17)
[2023-06-30] MEDS: Ascorbic Acid 500 MG TABLET PO ×2 (08:17→20:34)
[2023-06-30] MEDS: Apixaban 2.5 MG TABLET PO ×2 (08:18→20:34)
[2023-06-30] MEDS: Multivitamin with Minerals Liq 15 ML LIQUID PO (08:18)
[2023-06-30] MEDS: Escitalopram Oxalate 5 MG TABLET PO (08:18)
--- NOTE | 2023-06-30 10:12 | MHC.CLN ---
F/U DIET=REGULAR WITH SUPPLEMENTS ENSURE MAX BID AND GELATEIN PLUS TID. SUPPLEMENTS PROVIDE 780 KCALS, 150 G PROTEIN. CONTINUES WITH USUALLY GOOD PO INTAKE, WITH MOST MEALS 75-100%. SKIN WITH SIGNIFICANT WOUNDS. RECEIVING VITAMIN C, MVI WITH MINERALS AND ZINC SULFATE TO PROMOTE WOUND HEALING. FOLLOW FOR PO INTAKE OF MEALS AND SUPPLEMENTS, WOUND HEALING.
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
[2023-06-30] MEDS: Sennosides 8.6 MG TABLET PO (13:01)
--- NOTE | 2023-06-30 13:40 | MHC.CM.PN ---
dc set with [facility] re for 07/01 at 11 amb booked need to notify md and call family
[2023-06-30] MEDS: levoFLOXacin 750 MG TABLET PO (15:24)
[2023-06-30 16:00] VITALS: BP 106/73; PULSE 96; RESP 18; TEMP 36.2; O2SAT 97
--- NOTE | 2023-06-30 16:35 | W.MHC.ACPN ---
Advanced Care Planning Note Advanced Care Planning Note Discussed with: patient and family member(s) Time spent (in minutes): 20 Narrative: In light of poor quality of life in case of decompensation, pt would like to change code status to DNR/DNI. ERLINDA reviewed and filled out with him with daughter at bedside. Additionally, pt declines NIV, HD, or artificial nutrition. He accepts artificial hydration as well as hospital transfer. Problems Discussed (1) Osteomyelitis:
[2023-06-30 20:00] VITALS: BP 106/66; PULSE 95; RESP 18; TEMP 36.2; O2SAT 97
[2023-06-30] MEDS: Melatonin 3 MG TABLET 6 MG PO (20:34)
[2023-06-30] MEDS: ALPRAZolam 0.25 MG TABLET PO (20:34)
[2023-06-30] MEDS: Pravastatin Sodium 10 MG TABLET PO (20:34)
--- NOTE | 2023-06-30 22:22 | PM.EVENT ---
Event Note Date of Service: 06/30/23 Event Note: Pseudomonas bone sensitive to Levaquin. Levaquin 750 mg po daily for six weeks best chance at closure,follow Plastics Time Spent With Patient Time: Total time managing care of this patient today ____ minutes.
[2023-07-01 04:00] VITALS: BP 120/71; PULSE 100; RESP 16; TEMP 36.3; O2SAT 97
[2023-07-01] MEDS: Omeprazole 40 MG CAPSULE.DR PO (05:38)
--- NOTE | 2023-07-01 05:38 | PC.NURSE ---
wound dressing to sacral area done this morning at 0530am. Pt tolerated well.
[2023-07-01 05:57] LABS: Hemoglobin 7.2 g/dl (14.0-18.0); Mean Corpuscular Hemoglobin 25.4 pg (27.0-33.0); Mean Corpuscular Volume 84.5 fL (80.0-98.0); Mean Platelet Volume 7.8 fL (9.4-12.4); Platelet Count 380 X10*3/uL (160-400); Red Blood Count 2.84 X10*6/uL (4.60-5.80)
[2023-07-01 06:12] LABS: Anion Gap 11 (12-20); Blood Urea Nitrogen 14 mg/dL (9-16); C Reactive Protein 12.35 mg/dL (< or = 0.50); Calcium 8.6 mg/dL (8.4-10.2); Carbon Dioxide 23 mmol/L (22-29); Chloride 105 mmol/L (96-108); Creatinine Clr Calc Pharmacy 162.2; Estimated Glomerular Filt Rate > 60; Glucose Random 91 mg/dL (60-115); Potassium 3.2 mmol/L (3.3-5.1); Sodium 136 mmol/L (135-145)
[2023-07-01 06:49] VITALS: BP 128/62; PULSE 93; RESP 16; TEMP 36.6; O2SAT 99
[2023-07-01 07:00] LABS: Erythrocyte Sedimentation Rate > 140 MM/HR (0-15)
[2023-07-01 07:59] LABS: Magnesium 1.8 mg/dL (1.6-2.6)
[2023-07-01] MEDS: Baclofen 10 MG TABLET PO ×3 (08:53→21:28)
[2023-07-01] MEDS: Ferrous Sulfate 324 MG TABLET.DR PO ×2 (08:53→21:28)
[2023-07-01] MEDS: Apixaban 2.5 MG TABLET PO ×2 (08:53→21:28)
[2023-07-01] MEDS: Multivitamin with Minerals Liq 15 ML LIQUID PO (08:53)
[2023-07-01] MEDS: Ascorbic Acid 500 MG TABLET PO ×2 (08:53→21:28)
[2023-07-01] MEDS: Zinc Sulfate 220 MG CAPSULE PO (08:53)
[2023-07-01] MEDS: Escitalopram Oxalate 5 MG TABLET PO (08:53)
[2023-07-01] MEDS: Potassium Chloride ER 20 MEQ TAB.ER.PRT PO (08:54)
[2023-07-01] MEDS: 0.9 % Sodium Chloride Flush 3 ML SYRINGE IVFLUSH ×2 (08:54→23:37)
[2023-07-01] MEDS: Potassium Chloride ER 20 MEQ TAB.ER.PRT 40 MEQ PO (08:54)
[2023-07-01] MEDS: Midodrine HCl 5 MG TABLET PO ×3 (08:54→18:01)
[2023-07-01] MEDS: Sennosides 8.6 MG TABLET PO (12:55)
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
[2023-07-01 13:18] VITALS: BP 118/68; PULSE 90; RESP 18; TEMP 37.1
[2023-07-01 13:34] VITALS: BP 109/55; PULSE 91; RESP 18; TEMP 37
[2023-07-01] MEDS: levoFLOXacin 750 MG TABLET PO (14:43)
[2023-07-01 15:54] VITALS: BP 120/76; PULSE 84; RESP 18; TEMP 36.9; O2SAT 97
[2023-07-01 19:58] VITALS: BP 117/53; PULSE 68; RESP 18; TEMP 36.8; O2SAT 99
[2023-07-01] MEDS: ALPRAZolam 0.25 MG TABLET PO (21:29)
[2023-07-01] MEDS: Pravastatin Sodium 10 MG TABLET PO (21:29)
[2023-07-02 04:00] VITALS: BP 98/60; PULSE 104; RESP 16; TEMP 36.6; O2SAT 96
[2023-07-02 05:54] LABS: Hematocrit 28.5 % (42.0-52.0); Hemoglobin 8.6 g/dl (14.0-18.0); Mean Corpuscular HGB Conc 30.2 g/dl (31.0-36.0); Mean Corpuscular Hemoglobin 26.1 pg (27.0-33.0); Mean Corpuscular Volume 86.4 fL (80.0-98.0); Platelet Count 458 X10*3/uL (160-400); Red Cell Distribution Width 19.9 % (11.0-16.0)
[2023-07-02] MEDS: Omeprazole 40 MG CAPSULE.DR PO (06:10)
--- NOTE | 2023-07-02 06:46 | PC.NURSE ---
wound care/ dressing change to sacral area done at 0500; patient tolerated well.
[2023-07-02 06:51] VITALS: BP 132/73; PULSE 90; RESP 16; TEMP 36.1; O2SAT 98
[2023-07-02] MEDS: Multivitamin with Minerals Liq 15 ML LIQUID PO (09:20)
[2023-07-02] MEDS: Baclofen 10 MG TABLET PO ×2 (09:20→15:46)
[2023-07-02] MEDS: Escitalopram Oxalate 5 MG TABLET PO (09:21)
[2023-07-02] MEDS: Apixaban 2.5 MG TABLET PO (09:21)
[2023-07-02] MEDS: Potassium Chloride ER 20 MEQ TAB.ER.PRT PO (09:21)
[2023-07-02] MEDS: Zinc Sulfate 220 MG CAPSULE PO (09:21)
[2023-07-02] MEDS: Ascorbic Acid 500 MG TABLET PO (09:21)
[2023-07-02] MEDS: Midodrine HCl 5 MG TABLET PO ×3 (09:21→16:39)
[2023-07-02] MEDS: Ferrous Sulfate 324 MG TABLET.DR PO (09:21)
[2023-07-02] MEDS: 0.9 % Sodium Chloride Flush 3 ML SYRINGE IVFLUSH ×2 (09:22→15:46)
[2023-07-02 10:59] LABS: Anion Gap 11 (12-20); Blood Urea Nitrogen 18 mg/dL (9-16); Calcium 9.1 mg/dL (8.4-10.2); Carbon Dioxide 23 mmol/L (22-29); Chloride 107 mmol/L (96-108); Creatinine Clr Calc Pharmacy 134.3; Estimated Glomerular Filt Rate > 60; Glucose Random 91 mg/dL (60-115); Potassium 3.5 mmol/L (3.3-5.1); Sodium 137 mmol/L (135-145)
--- NOTE | 2023-07-02 11:31 | MHC.CLN ---
F/U DIET=REGULAR WITH SUPPLEMENTS ENSURE MAX BID AND GELATEIN PLUS TID. SUPPLEMENTS PROVIDE 780 KCALS, 150 G PROTEIN. CONTINUES WITH USUALLY GOOD PO INTAKE, WITH MOST MEALS 75-100%. SKIN WITH SIGNIFICANT WOUNDS. SACRAL AND ISCHIAL ULCERS WITH ACUTE OSTEOMYELITIS. MOLST UPDATED 06/30; NO ARTIFICIAL NUTRITION. FOLLOW FOR PO INTAKE OF MEALS AND SUPPLEMENTS, WOUND HEALING.
--- NOTE | 2023-07-02 12:13 | MHC.CM.PN ---
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 CM spoke to adm person at [facility] to insure thay they could care for wound per MD request. Was informed that they have a wound doctor and nurse who round there weekly. Pt will be referred to wound clinic. He will return today via ambulance.
[2023-07-02] MEDS: Sennosides 8.6 MG TABLET PO (13:19)
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
[2023-07-02] MEDS: levoFLOXacin 750 MG TABLET PO (15:46)
[2023-07-02 16:00] VITALS: BP 109/65; PULSE 90; RESP 18; TEMP 36.1; O2SAT 98
[2023-07-02] MEDS: Heparin Sodium,Porcine Flush 50 UNITS, 0.9 % Sodium Chloride Flush 5 ML IVFLUSH (16:39)
== END 2023-07-02 17:33 | disposition skilled nursing facility (03) | DRG 197 ==
LOC: HO.ED 20:52 → HO.EDOVER 23:41 → HO.S3 06-22 19:20
PROVIDERS: Internal Medicine; Admitting Provider Student in an Organized Health Care Education/Training Program; Emergency Provider Internal Medicine; PCP Family Medicine; Visit Provider Family Medicine
DX: I96 Gangrene, not elsewhere classified (principal); G82.50 Quadriplegia, unspecified; L89.614 Pressure ulcer of right heel, stage 4; L89.154 Pressure ulcer of sacral region, stage 4; L89.620 Pressure ulcer of left heel, unstageable; E88.09 Other disorders of plasma-protein metabolism, not elsewhere classified; D63.8 Anemia in other chronic diseases classified elsewhere; L89.896 Pressure-induced deep tissue damage of other site; Z66 Do not resuscitate; S14.109S Unspecified injury at unspecified level of cervical spinal cord, sequela; B96.5 Pseudomonas (aeruginosa) (mallei) (pseudomallei) as the cause of diseases classified elsewhere; M46.28 Osteomyelitis of vertebra, sacral and sacrococcygeal region; E87.6 Hypokalemia; V19.9XXS Pedal cyclist (driver) (passenger) injured in unspecified traffic accident, sequela; Z93.3 Colostomy status; Z87.891 Personal history of nicotine dependence; Z79.01 Long term (current) use of anticoagulants; Z79.899 Other long term (current) drug therapy
CPT/HCPCS: 36415; 36558; 71045; 73620; 74177; 80048; 80053; 80076; 81001; 82550; 83036; 83605; 83735; 84132; 85014; 85018; 85025; 85027; 85610; 85652; 86140; 86850; 86900; 86901; 86923; 87040; 87070; 87073; 87077; 87086; 87088; 87186; 87205; 88305; 88311; 99285; C1758; J0878; J1642; J1650; J2060; J2543; J3370; P9016; P9047; Q9967

== ENCOUNTER 2023-06-21 23:35 | Outpatient (BNV) | payer OTHER, SELFPAY | END 2023-06-25 11:30 | PROVIDERS: Admitting Provider Student in an Organized Health Care Education/Training Program; Emergency Provider Internal Medicine; PCP Family Medicine; Visit Provider Radiology Diagnostic Radiology | DX: G82.50 Quadriplegia, unspecified (principal); Z79.2 Long term (current) use of antibiotics | CPT/HCPCS: 36558; 76937 ==

== ENCOUNTER → 2023-06-21 23:35 | Outpatient (BNV) | payer OTHER, SELFPAY | PROVIDERS: Admitting Provider Student in an Organized Health Care Education/Training Program; Emergency Provider Internal Medicine; Visit Provider Student in an Organized Health Care Education/Training Program | DX: M86.9 Osteomyelitis, unspecified (principal) | CPT/HCPCS: 99222; 99231; 99232; 99239; 99497 ==

== ENCOUNTER → 2023-06-21 23:35 | Outpatient (BNV) | payer OTHER, SELFPAY | PROVIDERS: Admitting Provider Student in an Organized Health Care Education/Training Program; Emergency Provider Internal Medicine; PCP Family Medicine; Visit Provider Physician Assistant Surgical | DX: L89.159 Pressure ulcer of sacral region, unspecified stage (principal) | CPT/HCPCS: 20240; 97597; 99222; 99232 ==

== ENCOUNTER → 2023-06-21 23:35 | Outpatient (BNV) | payer OTHER, SELFPAY | PROVIDERS: Admitting Provider Student in an Organized Health Care Education/Training Program; Emergency Provider Internal Medicine; PCP Family Medicine; Visit Provider Internal Medicine | DX: L89.159 Pressure ulcer of sacral region, unspecified stage (principal); M86.9 Osteomyelitis, unspecified | CPT/HCPCS: 99222; 99499 ==

== ENCOUNTER 2023-07-12 14:27 | Inpatient (IN) | payer OTHER, SELFPAY ==
[2023-07-12 14:49] VITALS: BP 96/57; BP 97/54; PULSE 110; PULSE 112; RESP 15; TEMP 37; O2SAT 98; BMI 23.9
--- NOTE | 2023-07-12 15:36 | PHA.MEDREC ---
Pharmacy Consult ? Medication Reconciliation Pharmacy has completed the medication reconciliation. [facility] list. Shannan Oneil, NaaD
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
[2023-07-12 16:14] LABS: MANUAL DIFF FLAG NO
[2023-07-12 16:17] LABS: Basophils Percent Auto 0.1 % (0-2); Eosinophils Absolute Auto 0.1 X10*3/uL (0.0-0.4); Eosinophils Percent Auto 0.6 % (0-4); Hematocrit 28.8 % (42.0-52.0); Hemoglobin 8.8 g/dl (14.0-18.0); Imm Gran Abs Auto 0.23 X10*3/uL (0.00-0.03); Imm Gran Pct Auto 1.1 % (0.0-0.4); Lymphocytes Absolute Auto 0.9 X10*3/uL (1.2-4.9); Lymphocytes Percent Auto 4.4 % (20-40); Mean Corpuscular HGB Conc 30.6 g/dl (31.0-36.0); Mean Corpuscular Hemoglobin 25.7 pg (27.0-33.0); Mean Platelet Volume 7.6 fL (9.4-12.4); Monocytes Absolute Auto 0.8 X10*3/uL (0.1-1.2); Monocytes Percent Auto 3.9 % (2-11); Neutrophils Absolute Auto 18.8 x10*3/uL (2.0-8.3); Neutrophils Percent Auto 89.9 % (45-73); Platelet Count 335 X10*3/uL (160-400); Red Blood Count 3.43 X10*6/uL (4.60-5.80); Red Cell Distribution Width 18.6 % (11.0-16.0)
[2023-07-12 16:30] LABS: Lactic Acid 1.1 mmol/L (0.5-2.0)
[2023-07-12 16:33] LABS: Alanine Aminotransferase 14 U/L (0-40); Alkaline Phosphatase 185 U/L (39-117); Anion Gap 11 (12-20); Aspartate Amino Transferase 24 U/L (5-37); Bilirubin Total 0.3 mg/dL (0.0-1.0); Blood Urea Nitrogen 9 mg/dL (9-16); Carbon Dioxide 27 mmol/L (22-29); Chloride 101 mmol/L (96-108); Estimated Glomerular Filt Rate > 60; Glucose Random 94 mg/dL (60-115); Magnesium 1.5 mg/dL (1.6-2.6); Potassium 2.8 mmol/L (3.3-5.1); Sodium 136 mmol/L (135-145); Total Protein 6.2 g/dL (6.5-8.0)
[2023-07-12 17:43] VITALS: BP 97/68; PULSE 118; RESP 22; O2SAT 96
[2023-07-12] MEDS: 0.9 % Sodium Chloride 1,000 ML 999 ML IV (17:46)
[2023-07-12 18:37] VITALS: BP 95/52; PULSE 108; RESP 24; O2SAT 97
[2023-07-12] MEDS: vancomycin HCL 1,000 MG in 0.9 % Sodium Chloride 250 ML 270 MG IV (18:38)
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
[2023-07-12] MEDS: Potassium Chloride/H20 10 MEQ/100 ML PIGGYBACK 100 MEQ IV ×2 (19:55→20:54)
--- NOTE | 2023-07-12 20:17 | PC.NURSE ---
Addendum entered by Roslyn De La Rosa 07/12/23 22:50: Pt has bilateral foam guards to inner knees, as well as heels. Pt has large unstageable wound on coccyx it is previous nurse dressed with wet to dry dressing with ABD pads, pictures in chart from admission a week ago. [address] Pt resting quietly, denies pain and update on plan of care. Original Note: This typewriter ribbon winder assumed care at 1900, Pt AOx3, pt denies pain. Pt is a quadriplegic, and able to [id number] move right arm, left arm is fully contracted and unable to move it. Borrego bag in place and an ostomy. Pt has a double lumen picc line in place to right side of chest, Meds give per NOV. Pt requested more gingerale.
[2023-07-12 20:48] VITALS: BP 93/54; PULSE 101; RESP 20; TEMP 37; O2SAT 98
[2023-07-12] MEDS: Ascorbic Acid 500 MG TABLET PO (21:01)
[2023-07-12] MEDS: Pravastatin Sodium 10 MG TABLET PO (21:01)
[2023-07-12] MEDS: Potassium Chloride Packet 20 MEQ PACKET 40 MEQ PO (21:01)
[2023-07-12] MEDS: Ferrous Sulfate 324 MG TABLET.DR PO (21:01)
[2023-07-12] MEDS: Apixaban 2.5 MG TABLET PO (21:01)
[2023-07-12] MEDS: Baclofen 10 MG TABLET PO (21:01)
[2023-07-12] MEDS: Magnesium Sulfate/H2O 2 GM/50 ML PIGGYBACK IV (21:56)
--- NOTE | 2023-07-12 23:13 | PC.NURSE ---
RN to Rn report given to [facility], pt will be transported to [facility], via technnician
[2023-07-12] MEDS: 0.9 % Sodium Chloride Flush 3 ML SYRINGE IVFLUSH (23:44)
[2023-07-13] VITALS: BP 82/54; PULSE 116; RESP 18; TEMP 37; O2SAT 97
[2023-07-13] MEDS: Potassium Chloride/H20 10 MEQ/100 ML PIGGYBACK 100 MEQ IV ×2 (00:49→01:51)
--- NOTE | 2023-07-13 02:40 | PC.NURSE ---
BP-82/52, 84/54 notified ordered NS at 125/hr x 1 bag
[2023-07-13] MEDS: 0.9 % Sodium Chloride 1,000 ML 125 ML IVCONT (02:52)
[2023-07-13 04:00] VITALS: BP 117/66; PULSE 94; RESP 20; TEMP 36.4; O2SAT 95
[2023-07-13] MEDS: Omeprazole 40 MG CAPSULE.DR PO (05:32)
[2023-07-13 06:51] LABS: MANUAL DIFF FLAG NO
[2023-07-13 07:04] LABS: Basophils Percent Auto 0.2 % (0-2); Eosinophils Absolute Auto 0.2 X10*3/uL (0.0-0.4); Eosinophils Percent Auto 1.1 % (0-4); Hematocrit 26.8 % (42.0-52.0); Imm Gran Abs Auto 0.23 X10*3/uL (0.00-0.03); Imm Gran Pct Auto 1.3 % (0.0-0.4); Lymphocytes Absolute Auto 1.3 X10*3/uL (1.2-4.9); Mean Corpuscular HGB Conc 29.9 g/dl (31.0-36.0); Mean Corpuscular Hemoglobin 25.6 pg (27.0-33.0); Mean Corpuscular Volume 85.6 fL (80.0-98.0); Mean Platelet Volume 7.9 fL (9.4-12.4); Monocytes Absolute Auto 0.8 X10*3/uL (0.1-1.2); Monocytes Percent Auto 4.5 % (2-11); Neutrophils Absolute Auto 15.5 x10*3/uL (2.0-8.3); Neutrophils Percent Auto 85.9 % (45-73); Platelet Count 318 X10*3/uL (160-400); Red Blood Count 3.13 X10*6/uL (4.60-5.80); Red Cell Distribution Width 18.5 % (11.0-16.0); White Blood Count 18.1 X10*3/uL (4.8-10.8)
[2023-07-13 07:16] LABS: Alanine Aminotransferase 11 U/L (0-40); Albumin Level 1.7 g/dL (3.5-5.0); Alkaline Phosphatase 167 U/L (39-117); Anion Gap 9 (12-20); Aspartate Amino Transferase 19 U/L (5-37); Bilirubin Total 0.3 mg/dL (0.0-1.0); Blood Urea Nitrogen 5 mg/dL (9-16); Calcium 7.8 mg/dL (8.4-10.2); Carbon Dioxide 25 mmol/L (22-29); Chloride 105 mmol/L (96-108); Creatinine Clr Calc Pharmacy 153.6; Estimated Glomerular Filt Rate > 60; Glucose Random 101 mg/dL (60-115); Potassium 3.4 mmol/L (3.3-5.1); Sodium 136 mmol/L (135-145); Total Protein 5.5 g/dL (6.5-8.0)
[2023-07-13 07:22] VITALS: BP 94/53; PULSE 97; RESP 20; TEMP 36.9; O2SAT 99
[2023-07-13] MEDS: Ascorbic Acid 500 MG TABLET PO ×2 (08:29→22:32)
[2023-07-13] MEDS: Midodrine HCl 5 MG TABLET PO ×3 (08:29→16:57)
[2023-07-13] MEDS: Apixaban 2.5 MG TABLET PO ×2 (08:29→22:33)
[2023-07-13] MEDS: Potassium Chloride ER 20 MEQ TAB.ER.PRT PO (08:29)
[2023-07-13] MEDS: Escitalopram Oxalate 5 MG TABLET PO (08:30)
[2023-07-13] MEDS: levoFLOXacin 750 MG TABLET PO (08:30)
[2023-07-13] MEDS: Ferrous Sulfate 324 MG TABLET.DR PO ×2 (08:30→22:33)
[2023-07-13] MEDS: Baclofen 10 MG TABLET PO ×3 (08:30→22:33)
[2023-07-13] MEDS: 0.9 % Sodium Chloride Flush 3 ML SYRINGE IVFLUSH ×2 (08:32→16:08)
[2023-07-13] MEDS: Heparin Sodium,Porcine Flush 50 UNITS/5 ML SYRINGE IVFLUSH (08:32)
[2023-07-13] MEDS: 0.9 % Sodium Chloride Flush 10 ML SYRINGE 5 ML IVFLUSH (08:33)
--- NOTE | 2023-07-13 09:12 | MHC.CM.PN ---
Pt was recently admitted here on 06/21-07/02 for infected ulcer. Pt is a LTC resident at [facility] in [place] and plans to return there once medically cleared. Transport will be via BLS/Ni. HCP on file and verified. PCP: Dr. Obinna Blanco
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
[2023-07-13] MEDS: vancomycin HCL 1,500 MG in 0.9 % Sodium Chloride 500 ML 333.33 MG IV (10:53)
[2023-07-13 11:14] VITALS: BMI 23.9
--- NOTE | 2023-07-13 11:20 | MHC.CLN ---
PT IS MODERATELY MALNOURISHED PT IS MILDLY DEPLETED SUBCUTANEOUS FAT AND MUSCLE MASS WITH 9% NONSIGNIFICANT WT LOSS X 6 MONTHS WITH INCREASED NUTRITION NEEDS R/T PRESSURE INJURY QUALIFIES NON SEVERE MALNUTRITION IN THE CONTEXT OF CHRONIC ILLNESS BASED ON SIGNIFICANT WEIGHT LOSS AND MILD DEPLETION OF BODY FAT AND MUSCLE MASS PT FAMILIAR FROM PREVIOUS ADMISSIONS DIET RX: REGULAR-APPROPRIATE DISCUSSED SUPPLEMENTS FOR WOUND HEALING WITH PATIENT TO START TAKES ENSURE SUPPLEMENT 2 X DAILY AT FACILITY. WILL ADD ENSURE MAX PROTEIN BID (300 KCALS/60 G PROTEIN) AND GELATEIN TID (480 KCALS, 90 G PROTEIN) -SUPPLEMENTS PROVIDE 780 KCALS, 150 G PROTEIN IN TOTAL WITH 100% ACCEPTANCE LARGE STAGE 4 SACROCOCCYGEAL WOUND, STAGE 4 RIGHT HEEL, UNSTAGEABLE LEFT HEEL, DTI TO LOWER BACK, UNSTAGEABLE BILATERAL MEDIAL KNEE MONITOR FOR PO INTAKE OF MEALS AND SUPPLEMENTS RECOMMEND PHARMACY ADD MVI AND VITAMIN C TO FURTHER PROMOTE WOUND HEALING SEE ALSO FULL CLINICAL NUTRITION ASSESSMENT
[2023-07-13 11:33] VITALS: BP 121/64; PULSE 109; RESP 20; TEMP 37.1; O2SAT 99
[2023-07-13] MEDS: Multivitamin TABLET 1 TAB PO (11:47)
--- NOTE | 2023-07-13 11:55 | PHA.PROG ---
Admission Date/Time: July 12, 2023 19:10 Indication: BONE/JOINT Weight in k.3 kg Adjusted body weight in K.38 [place] body weight in K.1 Obesity Dosing Indication % IBW: 23.9 Serum Creatinine - Last 168 Hours 07/12/23 07/13/23 16:00 06:47 Creatinine 0.57 0.49 L Estimated CrCl and GFR - Last 168 Hours 07/12/23 07/13/23 16:00 06:47 Estim Creat Clear Calc 132.0 153.6 Estimated GFR > 60 > 60 Vancomycin Loading Dose:1000 MG GIVEN IN ED 07/12 AND PROPER LOAD GIVEN 07/13 Current Vancomycin Dosing Regimen: 1250 MG Q12 Vancomycin Monitoring using AUC goal of 400 - 600 range with trough as surrogate marker: 463 WITH TROUGH 12.7 Date and Time for next Vancomycin Level to be drawn: 07/14 @0900 Pharmacist Comments on Vancomycin Plan: LOAD OF ONLY 14.5 MG/KG GIVEN IN ED ONE TIME DOSE 07/12. CONSULT WAS ENTERED ON 07/[address] MONTEMAYOR AND LOAD OF 21.7 MG/KG GIVEN AT THAT TIME. Vancomycin dosing will take advantage of [employer] as a clinical decision support tool that uses Bayesian modeling to calculate individual patient's pharmacokinetic parameters and forecast the patient's drug concentration time course with the target goal AUC 24 range of 400 - 600 mg/L/hr.
--- NOTE | 2023-07-13 13:34 | HO.WOUND ---
Wound Consult: Initial 58yr old male admitted to [facility] [place] on 07/12/23 19:10- See progress notes and H&P for detailed history. Patient was seen last admission for wound care needs - arrival to bedside Dr. Landa and Germaine CANSECO had just completed wound dressing and assessment - Sacrococcygeal and bilateral heels not observed during todays assessment. Will assess tomorrow for measurements - orders in place from Surgery for Dakins Moist dressing Daily changes. Bilateral Knees assessed at todays assessment and pocuh was noted to be leaking stool and was taped in place - see ostomy note for details. Right Medial Knee Left Medial Knee Location: Sacrococcygeal (Sacrum, Bilateral Ischium, and Coccyx) Etiology: Stage 4 Pressure Injury POA (Present on Admission) Goals of Treatment: Defer to Surgery Dakins to allow for antimicrobial moist autolytic debridement Location: Right Heel Etiology: Stage 4 Pressure Injury POA (Present on Admission) Goals of Treatment: Defer to Surgery Dakins to allow for antimicrobial moist autolytic debridement Location:Left Heel Etiology: Unstageable Pressure Injury - POA Goals of Treatment: Defer to Surgery Dakins to allow for antimicrobial moist autolytic debridement Location:Bilateral Medial Knee Etiology: Stage 3 Pressure Injuries POA Measurements: see charting for detailed measurements Wound Bed: Moist pale pink wound bed with marbled yellow adhernt slough Drainage / Odor: No odor small amount of ragsdale yellow drainage noted on dressing and wound bed Edges: Irregular L[place]a wound: Intact no induration no fluctuance no warmth Pain: pt denied pain reports minimal feeling Goals of Treatment: Off Load Pressure - Triad to allow for autolytic debridement and moist wound healing Location: Scrotum Etiology: MASD (Moisture Associated Skin Damage) - not assessed today will assess at future consultation Recommendations: 1. Sacrococcygeal, scrotum and Bilateral Heels - - Cleanse with Saline. Apply Triad to the periwound. Packwound bed with Moist Dakins Gauze roll, cover with dry gauze, ABD pads. Change Daily. 2.Bilateral Knees - Cleanse with Saline, apply Triad to wound bed cover with foam dressing. Change Daily. 3. Turn and Reposition every 2 hours and as needed for patient comfort. 4. Off Load all bony prominences with use of pillows wedges and boots available in the storeroom. 5. Monitor for incontinence and moisture control. - F/C inplace and Ostomy pouch changed see note for details. 6. Provide adequate and supplemental nutrition - Nutrition consult in place. 7. Obtain low air loss mattress. Reconsult wound care team for wound deterioration or wound changes.
--- NOTE | 2023-07-13 13:44 | HO.OSTOMY ---
Ostomy Note 58yr old male admitted for abnormal lab values - see H&P and progress notes for details. Pouch noted to be leaking - Red rubber inplace - pt states the surgery was several month ago and he has since had follow up and red rubber remains in place. The Stoma is pink red moist and within a fold - will likely benefit from convex pouch, not available at the time of pouch leaking - coloplast 1 piece applied oval cut to accommodate red rubbar in place. There is peristomal MASD noted - denuded skin scattered around stoma likely impacting pouch adherence - Stomahesive powder not available at the time of pouch change - Stoma Paste used around stoma to aid in seal and moisture absorption. Advised to empty pouch 1/3-1/2 full. Advised to change pouch every 3-5 days or when leaking - do not reinforce with tape. Pouch in place at end of consultation.
--- NOTE | 2023-07-13 14:04 | PM.EVENT ---
Event Note Date of Service: 07/13/23 Event Note: Large buttock and sacral ulcer down to bone in some areas but generally clean with good granulation Eschar on the left heel involving full-thickness of the skin and subcutaneous tissue, about 5 by 6 cm sharp excisional debridement done using scissors at bedside Eschar on the right heel involving full-thickness skin subcutaneous tissue, about 3 x 4 cm Sharp excisional debridement done using fine scissors at bedside as well Wound care discussed with wound care nurse Jonelle Time Spent With Patient Time: Total time managing care of this patient today ____ minutes.
[2023-07-13 16:00] VITALS: BP 88/60; PULSE 106; RESP 18; TEMP 36.7; O2SAT 97
[2023-07-13 19:45] VITALS: BP 87/53; PULSE 106; RESP 20; TEMP 36.8; O2SAT 97
[2023-07-13] MEDS: Pravastatin Sodium 10 MG TABLET PO (22:33)
[2023-07-13] MEDS: vancomycin HCL 1,250 MG in 0.9 % Sodium Chloride 250 ML 166.67 MG IV (22:33)
[2023-07-13] MEDS: Sodium Hypochlorite 0.5% 473 ML SOLUTION 1 APPL TOPICAL (22:33)
--- NOTE | 2023-07-13 22:59 | W.PM.IDCN ---
History of Present Illness Data of Consult Service Date: 07/13/23 Requesting physician: Mehrdad Bond Primary Care Provider: Obinna Blanco MD HPI Reason for consult: bacteremia,gram positive cocci,leukocytosis He was told to come to hospital due to leukocytosis. He was feeling ill and weak. He is week 2/6 Levofloxacin 750 mg daily ,done 08/11 for chronic Pseudomonas sacral decubiti. Review of Systems Review of Systems: Yes all other systems are reviewed and are negative PMFSH Past Medical History Medical History (Updated 07/13/23 @ 23:02 by Jil Norwood MD) Bacteremia due to Gram-positive bacteria Stage IV decubitus ulcer Decubitus ulcer of ankle, stage 4 Quadriplegia Chronic anticoagulation Family History Family history: reviewed and not pertinent Surgical History Surgical History S/P colostomy S/P cervical spinal fusion Status post tracheostomy Social History Social History Household Members: Other Household Members Other:: [employer] Housing: Snf Do you presently have visiting nurse or other home services: No Unable to assess alcohol history related to: Unknown Patient Tobacco Use Status: Former Tobacco user Tobacco use type: Cigarette Smoked in Last 30 Days: No e-Cigarette/Vaping Use: Never Used Second Hand Smoke Exposure: No Use of substances other than those prescribed or required for medical reasons: No Currently Displaying Signs/Symptoms of Drug Intoxication Withdrawal: No Have you been hit, kicked, punched, or otherwise hurt by someone within the past year? If so, by whom?: No Do you feel safe in your current relationship?: No Current Relationship Is there a partner from a previous relationship who is making you feel unsafe now?: No Are you made to feel afraid or neglected: No Advance Directives: Yes Advance Directives on File: Yes Advance Directives Date on File: 01/31/23 Do you have thoughts of harming others: None Do you have a plan to hurt others: No Plan Recently lost weight without trying: No Nutrition Risks: No Nutritional Risk service: No Current occupational status: disabled Meds Allergies Allergy/AdvReac Type Severity Reaction Status Date / Time No Known Allergies Allergy Verified 06/21/23 18:29 Active Medications: Current Medications Acetaminophen (Acetaminophen 325 Mg Tablet) 650 mg PO Q6H PRN PRN Reason: Pain, Mild (Pain Scale 1-3) Albuterol Sulfate (Albuterol Sulfate (0.083%) 2.5 Mg/3 Ml Vial.Neb) 2.5 mg INHALE Q6H PRN PRN Reason: Shortness Of Breath Or Wheezing Alprazolam (Alprazolam 0.25 Mg Tablet) 0.25 mg PO BID PRN PRN Reason: Anxiety Apixaban (Apixaban 2.5 Mg Tablet) 2.5 mg PO BID [facility] Last Admin: 07/13/23 22:33 Dose: 2.5 mg Ascorbic Acid (Ascorbic Acid 500 Mg Tablet) 500 mg PO BID [facility] Last Admin: 07/13/23 22:32 Dose: 500 mg Baclofen (Baclofen 10 Mg Tablet) 10 mg PO TID [facility] Last Admin: 07/13/23 22:33 Dose: 10 mg Bisacodyl (Bisacodyl 10 Mg Supp.Rect) 10 mg [place] DAILY PRN PRN Reason: Constipation Escitalopram Oxalate (Escitalopram Oxalate 5 Mg Tablet) 5 mg PO DAILY [facility] Last Admin: 07/13/23 08:30 Dose: 5 mg Ferrous Sulfate (Ferrous Sulfate 324 Mg Tablet.Dr) 324 mg PO BID [facility] Last Admin: 07/13/23 22:33 Dose: 324 mg Fluticasone Propionate (Fluticasone Propionate Nasal 16 Gm [place]) 1 spray NOSTRIL-B DAILY [facility] Last Admin: 07/13/23 10:54 Dose: Not Given Heparin Sodium (Porcine) (Heparin Sodium,Porcine Flush 50 Units/5 Ml Syringe) 50 units IVFLUSH DAILY [facility] Last Admin: 07/13/23 08:32 Dose: 50 units Vancomycin HCl 1,250 mg/ (Sodium Chloride) 250 mls @ 166.667 mls/hr IV Q12H [facility] Last Admin: 07/13/23 22:33 Dose: 166.67 mls/hr Levofloxacin (Levofloxacin 750 Mg Tablet) 750 mg PO Q24H [facility] Last Admin: 07/13/23 08:30 Dose: 750 mg Melatonin (Melatonin 3 Mg Tablet) 6 mg PO BEDTIME PRN PRN Reason: Insomnia Midodrine (Midodrine Hcl 5 Mg Tablet) 5 mg PO TID@0800,1200,1800 [facility] Last Admin: 07/13/23 16:57 Dose: 5 mg Morphine Sulfate (Morphine Sulfate 4 Mg/Ml Cartridge) 2 mg IVPUSH Q4H PRN; Protocol PRN Reason: Pain, Severe (Pain Scale 7-10) Multivitamins/Vitamin C (Multivitamin Tablet) 1 tab PO DAILY [facility] Last Admin: 07/13/23 11:47 Dose: 1 tab Nystatin (Nystatin Powder 15 Gm Bottle) 1 appl TOPICAL DAILY PRN; Protocol PRN Reason: Rash Omeprazole (Omeprazole 40 Mg Capsule.Dr) 40 mg PO DAILY@0630 [facility] Last Admin: 07/13/23 05:32 Dose: 40 mg Ondansetron HCl (Ondansetron Hcl 4 Mg/2 Ml Vial) 4 mg IVPUSH Q8H PRN PRN Reason: Nausea and Vomiting Pharmacy Consult (Consult Rx Vancomycin Dosing) 1 each MISCELLANE DAILY PRN PRN Reason: Consult order Potassium Chloride (Potassium Chloride Er 20 Meq Tab.Er.Prt) 20 meq PO DAILY [facility] Last Admin: 07/13/23 08:29 Dose: 20 meq Pravastatin Sodium (Pravastatin Sodium 10 Mg Tablet) 10 mg PO BEDTIME [facility] Last Admin: 07/13/23 22:33 Dose: 10 mg Sodium Biphosphate/Sodium Phosphate (Sodium Phosphate,Riley-Dibasic 133 Ml Enema) 118 ml NJ DAILY PRN PRN Reason: Constipation Sodium Chloride (0.9 % Sodium Chloride Flush 3 Ml Syringe) 3 ml IVFLUSH QSHIFT [facility] Last Admin: 07/13/23 16:08 Dose: 3 ml Sodium Chloride (0.9 % Sodium Chloride Flush 10 Ml Syringe) 5 ml IVFLUSH DAILY [facility] Last Admin: 07/13/23 08:33 Dose: 5 ml Sodium Hypochlorite (Sodium Hypochlorite 0.5% 473 Ml Solution) 1 appl TOPICAL BID [facility] Last Admin: 07/13/23 22:33 Dose: 1 appl Home Medications Medication Instructions Recorded Confirmed Last Taken Type acetaminophen 650 mg tablet 650 mg PO Q4H PRN Pain 01/31/23 07/12/23 Unknown History albuterol sulfate 2.5 mg/3 mL 2.5 mg inhalation Q6H PRN 01/31/23 07/12/23 Unknown History (0.083 %) solution for nebulization Shortness Of Breath Or Wheezing alprazolam 0.25 mg tablet 0.25 mg PO BID PRN Anxiety 01/31/23 07/12/23 Unknown History apixaban 2.5 mg tablet 2.5 mg PO BID 01/31/23 07/12/23 Unknown History baclofen 10 mg tablet 10 mg PO TID 01/31/23 07/12/23 Unknown History bisacodyl 10 mg rectal suppository 10 mg NJ DAILY PRN Constipation 01/31/23 07/12/23 Unknown History diclofenac sodium 1 % topical gel 2 g topical BID PRN L shoulder pain 01/31/23 07/12/23 Unknown History fluticasone propionate 50 1 spray intranasal DAILY 01/31/23 07/12/23 Unknown History mcg/actuation nasal spray,suspension omeprazole magnesium 20 mg 40 mg PO DAILY 01/31/23 07/12/23 Unknown History tablet,delayed release (Prilosec OTC) potassium chloride 20 mEq 20 meq PO DAILY 01/31/23 07/12/23 Unknown History tablet,extended release(part/cryst) (Klor-Con M) pravastatin 10 mg tablet 10 mg PO BEDTIME 01/31/23 07/12/23 Unknown History sodium phosphates 19 gram-7 118 ml NJ DAILY PRN Constipation 01/31/23 07/12/23 Unknown History gram/118 mL enema (Fleet Enema) Saccharomyces boulardii 1 cap PO BID 06/21/23 07/12/23 Unknown History ascorbic acid (vitamin C) 500 mg 500 mg PO BID 06/21/23 07/12/23 Unknown History tablet citalopram 10 mg tablet 10 mg PO DAILY 06/21/23 07/12/23 Unknown History ferrous gluconate 325 mg (36 mg 325 mg PO BID 06/21/23 07/12/23 Unknown History iron) tablet midodrine 5 mg tablet 5 mg PO TID@0800,1200,1800 06/21/23 07/12/23 Unknown History nystatin 100,000 unit/gram topical 1 appl topical DAILY PRN Rash 06/21/23 07/12/23 Unknown History powder levofloxacin 750 mg tablet 750 mg PO Q24H osteomylitis 07/12/23 07/12/23 Unknown History Physical Exam Vital Signs: Vital Signs: Last Vital Signs Temp 98.3 F 07/13/23 19:45 Pulse 106 H 07/13/23 19:45 Resp 20 07/13/23 19:45 BP 87/53 L 07/13/23 19:45 Pulse Ox 97 07/13/23 19:45 O2 Del Method Room Air 07/13/23 19:45 BMI result Body Mass Index 23.9 Const: General: cooperative HEENT: Head: Yes normal to inspection Face and sinus: Yes normal facial exam Mouth: Normal oral and palatal mucosa present Teeth and gingiva: dentition normal Eyes: General: appearance normal, both eyes and all related structures Pupils: Equal, round and reactive pupils present Resp: Effort & Inspection: normal respiratory effort Cardio: Rate: regular rate Rhythm: regular rhythm GI: Palpation (GI): Soft to palpation and nontender Back/Spine/Pelvis: Other: decubiti sacral area Skin: General skin exam: no rashes or lesions noted Neuro: General: moves all extremities Cranial nerves: Yes Equal, round and reactive pupils present Extrem: General: Yes normal to inspection Psych: Appearance: grossly normal Results Labs 07/13/23 06:47 07/13/23 06:47 Labs: Short CBC 07/13/23 Range/Units 06:47 WBC 18.1 H (4.8-10.8) X10*3/uL Hgb 8.0 L (14.0-18.0) g/dl Hct 26.8 L (42.0-52.0) % Plt Count 318 (160-400) X10*3/uL BMP 07/13/23 06:47 Sodium 136 Potassium 3.4 D Chloride 105 Carbon Dioxide 25 BUN 5 L Creatinine 0.49 L Calcium 7.8 L Liver Function 07/13/23 Range/Units 06:47 Total Bilirubin 0.3 (0.0-1.0) mg/dL AST 19 (5-37) U/L ALT 11 (0-40) U/L Alkaline Phosphatase 167 H (39-117) U/L Albumin 1.7 L (3.5-5.0) g/dL Microbiology Microbiology Results: Microbiology 07/12/23 16:53 Blood - Venous Blood Culture - Preliminary Prelim: GPC Gram Stain only 07/12/23 16:00 Blood - Venous Blood Culture - Preliminary Prelim: GPC Gram Stain only Assessment and Plan (1) Sacral decubitus ulcer: Status: Acute (2) Bacteremia due to Gram-positive bacteria: Status: Acute He has possible new infection decubiti. Apparently there are no lines at this time since on po Levaquin Plan Levaquin for Pseudomonas as mentioned. IV Vancomycin Check echo Await final blood culture. Prognosis poor if sacral ulcers cant be closed.
[2023-07-14] VITALS (21 sets, daily range): BP systolic 67–123; BP diastolic 44–88; PULSE 75–113; RESP 16–24; TEMP 36.2–37.2; O2SAT 94–99
[2023-07-14] MEDS: Omeprazole 40 MG CAPSULE.DR PO (05:57)
[2023-07-14 06:34] LABS: Creatinine Clr Calc Pharmacy 147.6; Estimated Glomerular Filt Rate > 60
[2023-07-14] MEDS: Ascorbic Acid 500 MG TABLET PO ×2 (08:13→21:14)
[2023-07-14] MEDS: Midodrine HCl 5 MG TABLET PO ×3 (08:13→16:52)
[2023-07-14] MEDS: Ferrous Sulfate 324 MG TABLET.DR PO ×2 (08:13→21:13)
[2023-07-14] MEDS: levoFLOXacin 750 MG TABLET PO (08:13)
[2023-07-14] MEDS: Potassium Chloride ER 20 MEQ TAB.ER.PRT PO (08:13)
[2023-07-14] MEDS: Apixaban 2.5 MG TABLET PO ×2 (08:13→21:13)
[2023-07-14] MEDS: Baclofen 10 MG TABLET PO ×3 (08:13→21:14)
[2023-07-14] MEDS: Escitalopram Oxalate 5 MG TABLET PO (08:13)
[2023-07-14] MEDS: Multivitamin TABLET 1 TAB PO (08:14)
[2023-07-14] MEDS: 0.9 % Sodium Chloride Flush 10 ML SYRINGE 5 ML IVFLUSH (08:17)
[2023-07-14] MEDS: Heparin Sodium,Porcine Flush 50 UNITS/5 ML SYRINGE IVFLUSH (08:17)
[2023-07-14] MEDS: 0.9 % Sodium Chloride Flush 3 ML SYRINGE IVFLUSH ×3 (08:17→16:52)
[2023-07-14] MEDS: 0.9 % Sodium Chloride 1,000 ML 100 ML IVCONT ×2 (08:26→18:45)
[2023-07-14] MEDS: Sodium Hypochlorite 0.5% 473 ML SOLUTION 1 APPL TOPICAL ×2 (08:41→23:01)
[2023-07-14 10:00] LABS: Vancomycin Trough 22.3 mcg/mL (10.0-20.0)
[2023-07-14] MEDS: 0.9 % Sodium Chloride 500 ML IV (10:33)
--- NOTE | 2023-07-14 10:38 | HE.PHANOTE ---
RE:VANCOD Due to high trough of 22.3, dose decrease to 1000mg q12h with predicted AUC of 562 and trough of 17.2. There is a concern that trough will possibly be higher than 17.2 so hold morning dose on 07/14 and start the new dose @ 2100 on 07/14. Random level is scheduled for 07/15 @ 0700.
--- NOTE | 2023-07-14 10:40 | MHC.CM.PN ---
Per MD rounds patient is not medically cleared for dc. Plan remains resume LTC at [facility]. CM will continue to follow.
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
--- NOTE | 2023-07-14 13:21 | MHC.CLN ---
F/U PT IS MODERATELY MALNOURISHED SEE FULL CLINICAL NUTRITION ASSESSMENT DATED 07/13/23 PO INTAKE 75% X2 MEALS DIET RX: REGULAR-APPROPRIATE PT RECEIVING ENSURE MAX PROTEIN BID (300 KCALS/60 G PROTEIN) AND GELATEIN TID (480 KCALS, 90 G PROTEIN) -SUPPLEMENTS PROVIDE 780 KCALS, 150 G PROTEIN IN TOTAL WITH 100% ACCEPTANCE LARGE STAGE 4 SACROCOCCYGEAL WOUND, STAGE u RIGHT HEEL & LEFT HEEL, STAGE 3 BILATERAL MEDIAL KNEES MONITOR FOR PO INTAKE OF MEALS AND SUPPLEMENTS
[2023-07-14] MEDS: 0.9 % Sodium Chloride 500 ML 999 ML IV (15:23)
--- NOTE | 2023-07-14 15:23 | HO.WOUND ---
Wound Consult: Initial 58yr old male admitted [place] [facility] on 07/12/23 19:10- See progress notes and H&P for detailed history. Patient was seen last admission for wound care needs - arrival to bedside pt was agreeable to Sacrococcygeal and bilateral heels assessment and photo. Orders in place from Surgery for Dakins Moist dressing Daily changes. Bilateral Knees assessed at todays visit and dressing changed - no wound changes noted - Pouch assessed and remains in tact no leaking noted. Location: Sacrococcygeal (Sacrum, Bilateral Ischium, and Coccyx) Etiology: Stage 4 Pressure Injury POA (Present on Admission) Measurements: 24cm x 24cm x 4cm - see chart details for undermining locations Wound Bed: palpable rough bone exposed; left trochanter, bilateral ischium , and sacrum necrotic tissue scattered areas of yellow slough and dark pigmented nonviable tissue Drainage / Odor: foul smelling drainage - rags[place] yellow brown drainage noted no purulence noted at the time of my assessment Edges: Rolled and irregular Letha wound: red pink tissue slow to kelly - no induration no fluctuance Pain: pt denied pain reports minimal feeling Goals of Treatment: Dakins to allow for antimicrobial moist autolytic debridement Location: Right Heel Etiology: Stage 4 Pressure Injury POA (Present on Admission) Measurements: see chart for detailed measurements Wound Bed: palpable rough bone exposed; necrotic tissue scattered areas of yellow slough and black dry eschar Drainage / Odor: foul smelling drainage -ragsdale drainage noted no purulence noted at the time of my assessment Edges: Irregular Letha wound: red pink tissue slow to kelly - no induration no fluctuance Pain: pt denied pain reports minimal feeling Goals of Treatment: Dakins to allow for antimicrobial moist autolytic debridement Location:Left Heel Etiology: Stage 4 Pressure Injury - POA Measurements:see chart for detailed measurements Wound Bed: Black dry eschar with moist yellow ragsdale brown slough Drainage / Odor: malodorous ragsdale drainage Edges: Irregular epibole Letha wound: red pink tissue No induration no fluctuance noted Pain: pt denied pain reports minimal feeling Goals of Treatment: Dakins to allow for antimicrobial moist autolytic debridement Location:Bilateral Medial Knee Etiology: Stage 3 Pressure Injuries POA Wound Bed: moist pale pink full thickness tissue loss with scattered areas of yellow slough Drainage / Odor: serosanginous Edges: epibole Letha wound: [place] blanchable tissue no induration no fluctuance no warmth Pain: pt denied pain reports minimal feeling Goals of Treatment: Off Load Pressure - Triad to allow for autolytic debridement Location: Medial Lower Back Etiology: Unstageable Pressure Injury POA Measurements: 1cm x 2.2cm s 0.2cm Wound Bed: moist yellow slough with some granulation buds noted Drainage / Odor: None Edges: attached Letha wound: intact tissue No Induration no fluctuance Pain: Denies Goals of Treatment:Off Load Pressure protect from friction with Foam dressing Triad for autolytic debridement Location: Scrotum Etiology: MASD (Moisture Associated Skin Damage) Wound Bed: Full thickness tissue loss over scrotum - red moist tissue Drainage / Odor: small amount of serosanguinous drainage Edges: Epibole Letha wound: red erythema Pain: denies pain Goals of Treatment: Moist wound healing with Triad Recommendations: 1. Sacrococcygeal and Bilateral Heels - Cleanse with Saline. Apply Triad to the periwound. Pack wound bed with Moist Dakins Gauze roll, cover with dry gauze, ABD pads gauze roll. Change twice a day. 2. Bilateral Knees and Lower Back - Cleanse with Saline, apply Triad to wound bed cover with foam dressing. Change Daily. 3. Scrotum - Cleanse with PH balanced wipes. Apply thcik layer of triad to act as a barrier and allow for moist wound healing. Apply twice a day and PRN. 4. Turn and Reposition every 2 hours and as needed for patient comfort. 5. Off Load all bony prominences with use of pillows wedges and boots available in the storeroom. 6. Monitor for incontinence and moisture control. - F/C inplace and Ostomy pouch changed see note for details. 7. Provide adequate and supplemental nutrition - Nutrition consult in place. 8. Continue Low air loss mattress. Reconsult wound care team for wound deterioration or wound changes.
[2023-07-14 15:50] LABS: Hematocrit 23.1 % (42.0-52.0); Mean Corpuscular HGB Conc 30.3 g/dl (31.0-36.0); Mean Corpuscular Hemoglobin 25.9 pg (27.0-33.0); Mean Corpuscular Volume 85.6 fL (80.0-98.0); Platelet Count 263 X10*3/uL (160-400); Red Cell Distribution Width 18.6 % (11.0-16.0); White Blood Count 17.7 X10*3/uL (4.8-10.8)
[2023-07-14 16:00] LABS: Lactic Acid 1.6 mmol/L (0.5-2.0)
[2023-07-14] MEDS: 0.9 % Sodium Chloride 1,000 ML 500 ML IVCONT (16:11)
--- NOTE | 2023-07-14 16:55 | P.EN_ITS ---
Event Note Date of Service: 07/16/23 Event Note: The patient has a history of chronic hypotension, but his recent blood pressure readings have been significantly lower. IVF have been given, and the patient is currently asymptomatic and even feels better than before. He is alert and coherent, he is warm without clamminess and producing ample, clear urine. capillary refill is good. Hemoglobin and hematocrit levels are on the lower side, and is transfused 1 unit of red blood cells. Lactic acid levels is within the normal range. The patient is already receiving broad-spectrum antibiotics, and a blood culture has grown of Staphylococcus aureus with sensitivity pending. It is unlikely that the hypotension is primarily due to sepsis; instead, it appears to be related to the patient's underlying low blood pressure and decrease in blood count. I have consulted with ICU provider (Dr. Melendez) to escalat e his care to the ICU for closer monitoring and possible use of vasopressors. Patient is agreeable with the plan Time Spent With Patient Time: Total time managing care of this patient today ____ minutes.
--- NOTE | 2023-07-14 17:03 | PM.EVENT ---
Event Note Date of Service: 07/14/23 Event Note: Patient is a 58 Y M with quadriplegia, with chronic decibitus wound, complicated by osteomyelitis, now with staphyloccocus bacteremia; ICU consulted for persistent hypotension, though no overt sign of shock; to admit patient to ICU for vasopressors as needed
--- NOTE | 2023-07-14 18:00 | PC.NURSE ---
patient transferred down to ICU for closer monitoring/treatment of hypotension. Handoff report given to VISHAL Spring
[2023-07-14] MEDS: Norepinephrine Bitartrate/D5W 8 MG/250 ML PLAST..BAG 6.5 MG IV (18:18)
[2023-07-14] MEDS: vancomycin HCL 1,000 MG in 0.9 % Sodium Chloride 250 ML 270 MG IV (21:07)
[2023-07-14] MEDS: Pravastatin Sodium 10 MG TABLET PO (21:14)
[2023-07-14 23:49] LABS: Basophils Percent Auto 0.2 % (0-2); Eosinophils Absolute Auto 0.3 X10*3/uL (0.0-0.4); Eosinophils Percent Auto 1.4 % (0-4); Hematocrit 27.7 % (42.0-52.0); Hemoglobin 8.4 g/dl (14.0-18.0); Imm Gran Pct Auto 3.3 % (0.0-0.4); Lymphocytes Absolute Auto 2.6 X10*3/uL (1.2-4.9); MANUAL DIFF FLAG NO; Mean Corpuscular HGB Conc 30.3 g/dl (31.0-36.0); Mean Corpuscular Hemoglobin 26.2 pg (27.0-33.0); Mean Corpuscular Volume 86.3 fL (80.0-98.0); Mean Platelet Volume 7.8 fL (9.4-12.4); Monocytes Absolute Auto 1.5 X10*3/uL (0.1-1.2); Monocytes Percent Auto 6.3 % (2-11); Neutrophils Absolute Auto 18.6 x10*3/uL (2.0-8.3); Neutrophils Percent Auto 77.8 % (45-73); Platelet Count 344 X10*3/uL (160-400); Red Blood Count 3.21 X10*6/uL (4.60-5.80); Red Cell Distribution Width 18.5 % (11.0-16.0); SCAN SMEAR FLAG 1
[2023-07-15] VITALS (20 sets, daily range): BP systolic 92–121; BP diastolic 46–68; PULSE 80–113; RESP 15–24; TEMP 36.6–37.1; O2SAT 97–99; BMI 26.6
[2023-07-15] MEDS: 0.9 % Sodium Chloride Flush 3 ML SYRINGE IVFLUSH ×2 (00:15→14:40)
[2023-07-15 00:21] LABS: Alanine Aminotransferase 14 U/L (0-40); Albumin Level 1.8 g/dL (3.5-5.0); Alkaline Phosphatase 168 U/L (39-117); Anion Gap 10 (12-20); Aspartate Amino Transferase 27 U/L (5-37); Bilirubin Total 2.3 mg/dL (0.0-1.0); Blood Urea Nitrogen 13 mg/dL (9-16); Calcium 7.7 mg/dL (8.4-10.2); Carbon Dioxide 22 mmol/L (22-29); Chloride 109 mmol/L (96-108); Creatinine Clr Calc Pharmacy 163.6; Estimated Glomerular Filt Rate > 60; Glucose Random 128 mg/dL (60-115); Sodium 138 mmol/L (135-145); Total Protein 5.4 g/dL (6.5-8.0)
[2023-07-15 00:24] LABS: Magnesium 1.5 mg/dL (1.6-2.6); Phosphorus 2.5 mg/dL (2.7-4.5)
[2023-07-15] MEDS: Potassium Phosphate/NS 15 MMOL/250 ML PLAST..BAG 62.5 MMOL IV (01:04)
[2023-07-15] MEDS: Albumin Human 25 % 100 ML IV ×2 (01:09→02:07)
[2023-07-15] MEDS: Magnesium Sulfate/D5W 1 GM/100 ML PIGGYBACK IV (01:13)
[2023-07-15] MEDS: 0.9 % Sodium Chloride 1,000 ML 100 ML IVCONT (04:42)
[2023-07-15] MEDS: Omeprazole 40 MG CAPSULE.DR PO (05:42)
[2023-07-15 06:01] LABS: MANUAL DIFF FLAG NO
[2023-07-15 06:17] LABS: Vancomycin Random 15.3 mcg/mL (15-20)
[2023-07-15 06:19] LABS: Basophils Percent Auto 0.3 % (0-2); Eosinophils Absolute Auto 0.2 X10*3/uL (0.0-0.4); Eosinophils Percent Auto 1.5 % (0-4); Hematocrit 21.6 % (42.0-52.0); Imm Gran Abs Auto 0.34 X10*3/uL (0.00-0.03); Imm Gran Pct Auto 2.2 % (0.0-0.4); Lymphocytes Absolute Auto 1.7 X10*3/uL (1.2-4.9); Lymphocytes Percent Auto 11.2 % (20-40); Mean Corpuscular HGB Conc 30.6 g/dl (31.0-36.0); Mean Corpuscular Hemoglobin 26.5 pg (27.0-33.0); Mean Corpuscular Volume 86.7 fL (80.0-98.0); Mean Platelet Volume 8.3 fL (9.4-12.4); Monocytes Absolute Auto 1.1 X10*3/uL (0.1-1.2); Monocytes Percent Auto 7.3 % (2-11); Neutrophils Absolute Auto 11.9 x10*3/uL (2.0-8.3); Neutrophils Percent Auto 77.5 % (45-73); Platelet Count 261 X10*3/uL (160-400); Red Blood Count 2.49 X10*6/uL (4.60-5.80); Red Cell Distribution Width 18.4 % (11.0-16.0); White Blood Count 15.3 X10*3/uL (4.8-10.8)
[2023-07-15 06:23] LABS: Alanine Aminotransferase 9 U/L (0-40); Albumin Level 2.2 g/dL (3.5-5.0); Alkaline Phosphatase 111 U/L (39-117); Anion Gap 10 (12-20); Aspartate Amino Transferase 14 U/L (5-37); Blood Urea Nitrogen 13 mg/dL (9-16); Calcium 7.2 mg/dL (8.4-10.2); Carbon Dioxide 22 mmol/L (22-29); Chloride 112 mmol/L (96-108); Creatinine Clr Calc Pharmacy 183.6; Estimated Glomerular Filt Rate > 60; Glucose Random 118 mg/dL (60-115); Magnesium 1.7 mg/dL (1.6-2.6); Phosphorus 3.4 mg/dL (2.7-4.5); Potassium 2.7 mmol/L (3.3-5.1); Sodium 141 mmol/L (135-145); Total Protein 4.8 g/dL (6.5-8.0)
[2023-07-15 06:29] LABS: Hemoglobin 6.6 g/dl (14.0-18.0)
--- NOTE | 2023-07-15 06:35 | HE.PHANOTE ---
VANCO DOSE ADJUSTMENT BASED ON SCR AND TROUGH OF 15.3 DOSE CONT. @ 1000 Q 12. NEXT LEVEL 07/16 @1900
--- NOTE | 2023-07-15 07:00 | CA_ITS ---
Transthoracic Echocardiogram Patient (Last, First, Middle): Gary Bradley A Gender: Male Date of : 1965 Age: 58 Procedure Date: 07/15/2023 Procedure Type: Transthoracic Echocardiogram Location: ICU Height: 170.18 cm Weight: 68.95 kg BSA: 1.80 m2 Heart Rate: 96 bpm BP: 105 / 68 mmHg Consulting Hr Professional: ARIVN Referring MD: Mehrdad Meléndez MD Clinical Informaticist: Tony Cross MD Symptoms: bacteremia, sepsis Study Quality: Technically Difficult/w Contrast ECG Rhythm: Sinus Conclusions: - 1. Technically limited study. 2. Cardiac valvular vegetations cannot be effectively ruled out on this study next 3. Normal LV ejection fraction of 60 65% with grade 1 diastolic dysfunction 4. Calcific aortic and mitral valve changes noted with cardiac valvular Dopplers within normal limits 5. Normal measured RV systolic pressure Findings Procedure Information Contrast agent, definity, is being given per protocol without apparent complications. Left Ventricle Normal left ventricular size, thickness, and systolic function. The visually estimated ejection fraction is between 60-65%. Spectral Doppler is indicative of an impaired relaxation filling pattern. E/E prime ratio is <8, consistent with normal filling pressures. Evidence suggests grade I (mild) diastolic dysfunction. Right Ventricle The right ventricle was not well visualized. Atria The left atrium is normal in size. Interatrial shunt cannot be excluded. The right atrium was not well visualized. Aortic Valve The aortic valve was not well visualized. There is mild calcification of the aortic valve. There is no aortic valve stenosis. There is no aortic valve regurgitation. Mitral Valve The mitral valve was not well visualized. There is mild anterior and moderate posterior mitral leaflet thickening. There is moderate mitral annular calcification. There is no mitral valve regurgitation. There is no mitral valve stenosis. Pulmonic Valve The pulmonic valve was not well visualized. Tricuspid Valve The tricuspid valve was not well visualized. The right ventricular systolic pressure is normal. The right ventricular systolic pressure is 23 mmHg. There is no evidence of pulmonary hypertension. Great Vessels The aorta was not well visualized. The pulmonary artery was not well visualized. Venous The inferior vena cava is mildly dilated and collapses less than 50% with inspiration. Pericardium/Pleural The pericardium was not well visualized. Prior Study Comparison No prior study available for comparison. Recommendations, Care & Conclusions Consider a FELIPE if clinically appropriate. Measurements 2D Linear Measurements IVSd: 1.07 0.6-0.9/0.6-1.0 cm LVIDd: 3.27 3.9-5.3/4.2-5.9 cm LVIDd Index: 1.82 2.4-3.2/2.2-3.1 cm/m2 LVIDs: 2.11 2.0-3.6 cm LVPWd: 1.10 0.7-1.1 cm LA Diam: 3.30 2.7-3.8/3.0-4.0 cm LAIDs Index: 1.83 1.5-2.3 cm/m2 LV Mass: 131.06 67-162/88-224 g LV Mass Index: 72.81 43-95/49-115 g/m2 LVOT Diam: 2.00 3.0+(-)1.3 cm 2D Systolic Function EF 4C: 70.50 >55% EF 2C: 58.00 >55% EF BiP: 65.80 >55% Mitral Valve MV Pk E: 1.07 MV PK A: 1.26 MV Decel Time: 257.00 E/A: 0.80 E'Lateral: 15.10 E'Medial: 9.25 E/E' Med: 11.60 E/E' Lat: 7.10 PHT: 75.00 MVA PHT: 2.93 Decel [place]: 4.14 Aortic Valve AoV Pk Edin: 1.63 AoV Mn Edin: 1.11 AoV VTI: 0.27 AoV Pk Grad: 11.00 Aov Mn Grad: 6.00 CHELSEA Cont.VTI: 2.61 LVOT LVOT Pk Edin: 1.38 LVOT Mn Edin: 0.82 LVOT VTI: 0.23 LVOT Pk Grad: 8.00 LVOT Mn Grad: 3.00 LVOT Diam: 2.00 LVOT Area: 3.14 Diastolic Function MV Pk E: 1.07 MV Pk A: 1.26 E/A: 0.80 E'Medial: 9.25 E/E' Med: 11.60 E' Laterial: 15.10 E/E' Lat: 7.10 Right Ventricle TAPSE (mm): 26.30 TVS' Edin: 10.70 Tricuspid Valve TR Pk Edin: 1.42 TR Pk Grad: 8.00 RA Press: 15.00 RVSP: 23.00 Great Vessels Aorta Sinus of Valsalva: 3.90 2.0-3.5 cm Ao Asc: 3.20 2.1-3.4 cm Pulmonary Valve PV Pk Edin: 1.48 Peak PV Grad: 9.00 Updated in Other Vendor System with Status of Final Tony Cross MD electronically signed on 07/15/2023 3:58:37 PM with status of Final
--- NOTE | 2023-07-15 08:23 | P.PNCC_ITS ---
Subjective Subjective Date of Service: 07/15/23 Interval History: no significant overnight events Critical Care Time (minutes): 60 Physical Exam 2 Vital Signs: Vital Signs: Last Vital Signs Temp 98.3 F 07/15/23 07:00 Pulse 80 07/15/23 08:00 Resp 15 07/15/23 08:00 BP 109/63 07/15/23 08:00 Pulse Ox 98 07/15/23 08:00 O2 Del Method Room Air 07/15/23 08:00 BMI result Body Mass Index 26.6 Const: General: cooperative, healthy appearing, comfortable, no acute distress, well developed, alert and awake Orientation/consciousness: patient oriented x3 HEENT: Head: Yes normal to inspection, Yes normocephalic and Yes atraumatic Eyes: General: appearance normal, both eyes and all related structures Neck: Neck: Yes normal visual inspection, Yes full ROM and Yes supple Chest: Chest palpation & inspection: normal inspection of the chest Resp: Other: no appreciable rales, rhonchi, wheezing Cardio: Rate: regular rate Rhythm: regular rhythm Back/Spine/Pelvis: Other: appreciable, extensive and unstagable decubitus ulcer with purulence and oozing Skin: Other: decubitus ulcer as described above Neuro: Other: moves R upper extremity, unable to move L U, and bilateral LEs General: patient oriented x3 Extrem: General: Yes capillary refill normal and Yes no clubbing, cyanosis or edema Psych: Appearance: grossly normal Objective Data Labs 07/15/23 05:43 07/15/23 05:43 Labs: Laboratory Results - last 24 hr 07/14/23 07/14/23 07/14/23 09:27 15:40 23:32 WBC 17.7 H 24.0 H RBC 2.70 L 3.21 L Hgb 7.0 L* 8.4 L Hct 23.1 L 27.7 L MCV 85.6 86.3 MCH 25.9 L 26.2 L MCHC 30.3 L 30.3 L RDW 18.6 H 18.5 H Plt Count 263 344 D MPV 8.0 L 7.8 L Immature Gran % (Auto) 3.3 H Neut % (Auto) 77.8 H Lymph % (Auto) 11.0 L [place] % (Auto) 6.3 Eos % (Auto) 1.4 Baso % (Auto) 0.2 Lymph # (Auto) 2.6 [place] # (Auto) 1.5 H Eos # (Auto) 0.3 Baso # (Auto) 0.0 Abs Immat Gran (auto) 0.80 H Absolute Neuts (auto) 18.6 H Absolute Nucleated RBC 0.000 0.000 Nucleated RBC % (auto) 0.0 0.0 Sodium 138 Potassium 3.0 L Chloride 109 H Carbon Dioxide 22 Anion Gap 10 L BUN 13 Creatinine 0.46 L Estim Creat Clear Calc 163.6 Estimated GFR > 60 Random Glucose 128 H Lactic Acid 1.6 Calcium 7.7 L Phosphorus 2.5 L Magnesium 1.5 L Total Bilirubin 2.3 H AST 27 ALT 14 Alkaline Phosphatase 168 H Total Protein 5.4 L Albumin 1.8 L Vancomycin Trough 22.3 H Random Vancomycin Blood Type A Positive Antibody Screen NEGATIVE Crossmatch See Detail 07/15/23 05:43 WBC 15.3 H RBC 2.49 L D Hgb 6.6 L* D Hct 21.6 L D MCV 86.7 MCH 26.5 L MCHC 30.6 L RDW 18.4 H Plt Count 261 MPV 8.3 L Immature Gran % (Auto) 2.2 H Neut % (Auto) 77.5 H Lymph % (Auto) 11.2 L [place] % (Auto) 7.3 Eos % (Auto) 1.5 Baso % (Auto) 0.3 Lymph # (Auto) 1.7 [place] # (Auto) 1.1 Eos # (Auto) 0.2 Baso # (Auto) 0.0 Abs Immat Gran (auto) 0.34 H Absolute Neuts (auto) 11.9 H Absolute Nucleated RBC 0.000 Nucleated RBC % (auto) 0.0 Sodium 141 Potassium 2.7 L Chloride 112 H Carbon Dioxide 22 Anion Gap 10 L BUN 13 Creatinine 0.41 L Estim Creat Clear Calc 183.6 Estimated GFR > 60 Random Glucose 118 H Lactic Acid Calcium 7.2 L D Phosphorus 3.4 Magnesium 1.7 Total Bilirubin 2.0 H AST 14 ALT 9 Alkaline Phosphatase 111 Total Protein 4.8 L Albumin 2.2 L Vancomycin Trough Random Vancomycin 15.3 Blood Type Antibody Screen Crossmatch Microbiology Microbiology Results: Microbiology 07/12/23 16:53 Blood - Venous Blood Culture - Final Methicillin Res Staph Aureus 07/12/23 16:00 Blood - Venous Blood Culture - Final Methicillin Res Staph Aureus Progress Note: A&P Assessment and plan (1) Bacteremia due to Gram-positive bacteria: Status: Acute (2) 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: Status: Acute (3) Sacral decubitus ulcer: Status: Acute (4) Osteomyelitis: Status: Acute Plan Patient is a 58 Y M with quadriplegia, c/b unstagable decubitus ulcer, c/b bacteremia, admitted to ICU d/t hypotension, on low-dose norepinephrine gtt Mr. Bradley and his two daughters, Vandana and Shantell, were present bedside. The decision was made to transition Mr. Bradley's philosophy of care to comfort- focused care at this time. Quality Stroke Does the patient have a stroke diagnosis?: No VTE Prior VTE?: No VTE Risk Level:: Medical - moderate - high VTE Device Contraindication: Treatment Not Indicated VTE Drug Contraindication: Treatment Not Indicated
[2023-07-15] MEDS: vancomycin HCL 1,000 MG in 0.9 % Sodium Chloride 250 ML 270 MG IV (08:29)
[2023-07-15] MEDS: Midodrine HCl 5 MG TABLET PO (08:30)
[2023-07-15] MEDS: Potassium Chloride Packet 20 MEQ PACKET 40 MEQ PO (08:30)
[2023-07-15] MEDS: Potassium Chloride ER 20 MEQ TAB.ER.PRT PO (08:30)
[2023-07-15] MEDS: Ferrous Sulfate 324 MG TABLET.DR PO (08:30)
[2023-07-15] MEDS: Ascorbic Acid 500 MG TABLET PO (08:30)
[2023-07-15] MEDS: Baclofen 10 MG TABLET PO ×3 (08:30→20:17)
[2023-07-15] MEDS: levoFLOXacin 750 MG TABLET PO (08:30)
[2023-07-15] MEDS: Escitalopram Oxalate 5 MG TABLET PO (08:30)
[2023-07-15] MEDS: Apixaban 2.5 MG TABLET PO (08:30)
[2023-07-15] MEDS: Multivitamin TABLET 1 TAB PO (08:30)
[2023-07-15] MEDS: levoFLOXacin/D5W 750 MG/150 ML PIGGYBACK 100 MG IV (08:31)
--- NOTE | 2023-07-15 12:10 | W.MHC.ACPN ---
Advanced Care Planning Note Advanced Care Planning Note Discussed with: patient and family member(s) Time spent (in minutes): 30 Narrative: Mr. Bradley, and his daughters, Vandana and Shantell, were present at bedside. I offered updates and clarifications. We discussed that unfortunately Mr. Bradley's decubitus ulcer is extensive, not amendable to surgery, and will likely continue to become infected indefinitely. Mr. Bradley expressed understanding of this and at this point in time, would like to transition his philosophy of care to comfort-focused care. Mr. Bradley has been utilizing spiritual care services, and will discuss with case management with regards to hospice placement if it is needed. A MOLST form was updated. Problems Discussed (1) Bacteremia due to Gram-positive bacteria: (2) 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: (3) Sacral decubitus ulcer: (4) Osteomyelitis:
[2023-07-15] MEDS: Scopolamine 1.5 MG PATCH.TD.3 TRANSDERMA (14:38)
--- NOTE | 2023-07-15 14:46 | MHC.CM.PN ---
Pt had long discussion w/MD about poor prognosis and no options for surgical correction of massive decubitus. Pt has opted for [facility] care at this time. Met with pt and dtrs to review options: pt would like to remain at [facility] for [facility] care: discussed medical needs including pain management, etc. Pt would consider returning to [facility] if he could have a private room and other dignity related provisions met. Will update referral with new information. CM to follow.
[2023-07-16 06:00] VITALS: BMI 26.3
[2023-07-16 07:00] VITALS: BP 87/52; PULSE 87; RESP 18; TEMP 36.6; O2SAT 99
[2023-07-16] MEDS: Baclofen 10 MG TABLET PO ×2 (08:14→15:39)
[2023-07-16] MEDS: Escitalopram Oxalate 5 MG TABLET PO (08:14)
[2023-07-16] MEDS: 0.9 % Sodium Chloride Flush 10 ML SYRINGE 5 ML IVFLUSH (08:16)
[2023-07-16] MEDS: ondansetron HCL 4 MG/2 ML VIAL IVPUSH (09:36)
--- NOTE | 2023-07-16 11:04 | MHC.CLN ---
F/U PATIENT STATUS IS NOW COMFORT MEASURES ONLY. CONTINUE REGULAR DIET AND OFFER SUPPLEMENTS. RD AVAILABLE NEEDED.
--- NOTE | 2023-07-16 11:32 | HO.PM.IMPN ---
Subjective Subjective Date of Service: 07/16/23 Interval History: Patient was admitted with sepsis, bacteremia, and infected decub ulcer and became hypotensive on the floor and went to the ICU and followin discussion with his daughters decide on nonagresive management and comfort Review of Systems Denies any pain, no fever Physical Exam Vital Signs: Vital Signs: Last Vital Signs Temp 98.2 F 07/15/23 13:46 Pulse 109 H 07/15/23 13:46 Resp 20 07/15/23 13:46 BP 95/60 07/15/23 13:46 Pulse Ox 97 07/15/23 13:00 O2 Del Method Room Air 07/15/23 13:00 BMI result Body Mass Index 26.3 Const: Other: General: AO X 3, no acute distress Resp: CTA bilateral CVS: S1,S2,RRR GI: +BS, NT, no distention Skin: see pictures Neuro: quadpligic state Psych: appropriate affect Objective Data Active Medications Acetaminophen (Acetaminophen 325 Mg Tablet) 650 mg PO Q6H PRN PRN Reason: Pain, Mild (Pain Scale 1-3) Alprazolam (Alprazolam 0.25 Mg Tablet) 0.25 mg PO BID PRN PRN Reason: Anxiety Baclofen (Baclofen 10 Mg Tablet) 10 mg PO TID [facility] Last Admin: 07/16/23 08:14 Dose: 10 mg Documented By: DAVID Escitalopram Oxalate (Escitalopram Oxalate 5 Mg Tablet) 5 mg PO DAILY [facility] Last Admin: 07/16/23 08:14 Dose: 5 mg Documented By: DAVID Haloperidol Lactate (Haloperidol Lactate Oral Conc 10 Mg/5 Ml Oral.Conc) 1 mg SUBLINGUAL Q4H PRN PRN Reason: Anxiety/Restlessness/Delirium Hydromorphone HCl (Hydromorphone Hcl 0.5 Mg/0.5 Ml Syringe) 0.5 mg IVPUSH Q2H PRN; Protocol PRN Reason: Pain, Moderate(Pain Scale 4-6) Lorazepam (Lorazepam 1 Mg Tablet) 1 mg SUBLINGUAL Q4H PRN PRN Reason: anxiety/restlessness Lorazepam (Lorazepam 2 Mg/Ml Vial) 1 mg IV Q2H PRN PRN Reason: Anxiety Melatonin (Melatonin 3 Mg Tablet) 6 mg PO BEDTIME PRN PRN Reason: Insomnia Morphine Sulfate (Morphine Sulfate 4 Mg/Ml Cartridge) 4 mg IVPUSH Q4H PRN PRN Reason: Discomfort/Shortness of breath Ondansetron HCl (Ondansetron Hcl 4 Mg/2 Ml Vial) 4 mg IVPUSH Q4H PRN PRN Reason: Nausea and Vomiting Last Admin: 07/16/23 09:36 Dose: 4 mg Documented By: DAVID Scopolamine (Scopolamine 1.5 Mg Patch.Td.3) 1.5 mg TRANSDERMA Q72H [facility] Last Admin: 07/15/23 14:38 Dose: 1.5 mg Documented By: ELIZABETH Sodium Chloride (0.9 % Sodium Chloride Flush 3 Ml Syringe) 3 ml IVFLUSH QSHIFT [facility] Last Admin: 07/16/23 08:16 Dose: Not Given Documented By: DAVID Non-Admin Reason: No Access Sodium Chloride (0.9 % Sodium Chloride Flush 10 Ml Syringe) 5 ml IVFLUSH DAILY [facility] Last Admin: 07/16/23 08:16 Dose: 5 ml Documented By: DAVID Labs 07/15/23 05:43 07/15/23 05:43 Labs: Laboratory Results - last 24 hr 07/14/23 15:40 Crossmatch See Detail Microbiology Microbiology Results: Microbiology 07/12/23 16:53 Blood Culture - Final Blood - Venous Methicillin Res Staph Aureus 07/12/23 16:00 Blood Culture - Final Blood - Venous Methicillin Res Staph Aureus Assessment and Plan (1) Bacteremia due to Gram-positive bacteria: Status: Acute (2) 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: Status: Acute (3) Sacral decubitus ulcer: Status: Acute Plan Patient is a 58 Y M with quadriplegia, c/b unstagable decubitus ulcer, c/b bacteremia, admitted to ICU d/t hypotension and required pressors, Mr. Bradley and his two daughters, Vandana and Shantell, were present bedside. The decision was made to transition Mr. Bradley's philosophy of care to comfort-focused care at this time. I spoke to the patient and 2 daughters along with his best friend at the [facility] and confirmed that he wanted comfort meausures with the understanding he will no longer be on antibiotics and only meds for comfort. Will attempt to transition back to SNF Quality Stroke Does the patient have a stroke diagnosis?: No VTE Prior VTE?: No VTE Risk Level:: Medical - moderate - high VTE Device Contraindication: Treatment Not Indicated VTE Drug Contraindication: Treatment Not Indicated
[2023-07-16] MEDS: LORazepam 2 MG/ML VIAL 1 MG IV (13:04)
--- NOTE | 2023-07-16 15:39 | MHC.CM.PN ---
PT STATING HE DOES NOT WANT TO RETURN TO SNF UNLESS THEY HAVE A PRIVATE ROOM CM CONTACTED [facility] WHO STATES THEY DO HAVE A PRIVATE ROOM, HOWEVER THEY ARE UNABLE TO ACCEPT THE PT BACK UNTIL THEY GET INSURANCE AUTH. PTS INSURANCE COMPANY WAS CLOSED TODAY DUE TO THE HOLIDAY AND WILL BE CLOSED THROUGH THE WEEKEND PT WILL DC BACK TO [facility] ON WEDNESDAY PENDING AUTH
--- NOTE | 2023-07-16 17:08 | PC.NURSE ---
Patient resting,family at bedside
--- NOTE | 2023-07-17 00:53 | PC.NURSE ---
Acquired care at 2330, pt is in bed. Awake.Denies any pain. Assisted with feeding oranges and water. Quick assessment done. Ostomy appliance remains intact and empty. [place] cath bag is not full.
[2023-07-17] MEDS: Escitalopram Oxalate 5 MG TABLET PO (09:10)
[2023-07-17] MEDS: 0.9 % Sodium Chloride Flush 10 ML SYRINGE 5 ML IVFLUSH (09:10)
[2023-07-17] MEDS: Baclofen 10 MG TABLET PO ×3 (09:10→22:53)
--- NOTE | 2023-07-17 09:19 | P.PNIM_ITS ---
Subjective Subjective Date of Service: 07/17/23 Interval History: Patient was admitted with sepsis, bacteremia, and infected decub ulcer and became hypotensive on the floor and went to the ICU and followin discussion with his daughters decide on nonagresive management and comfort Physical Exam 2 Vital Signs: Vital Signs: Last Vital Signs Temp 97.8 F 07/16/23 07:00 Pulse 87 07/16/23 07:00 Resp 18 07/16/23 07:00 BP 87/52 L 07/16/23 07:00 Pulse Ox 99 07/16/23 07:00 O2 Del Method Room Air 07/16/23 07:00 BMI result Body Mass Index 26.3 Const: Other: General: AO X 3, no acute distress Resp: CTA bilateral CVS: S1,S2,RRR GI: +BS, NT, no distention Skin: see pictures Neuro: quadpligic state Psych: appropriate affect Objective Data Active Medications Acetaminophen (Acetaminophen 325 Mg Tablet) 650 mg PO Q6H PRN PRN Reason: Pain, Mild (Pain Scale 1-3) Alprazolam (Alprazolam 0.25 Mg Tablet) 0.25 mg PO BID PRN PRN Reason: Anxiety Baclofen (Baclofen 10 Mg Tablet) 10 mg PO TID [facility] Last Admin: 07/16/23 15:39 Dose: 10 mg Documented By: JOSE C Escitalopram Oxalate (Escitalopram Oxalate 5 Mg Tablet) 5 mg PO DAILY [facility] Last Admin: 07/16/23 08:14 Dose: 5 mg Documented By: DAVID Haloperidol Lactate (Haloperidol Lactate Oral Conc 10 Mg/5 Ml Oral.Conc) 1 mg SUBLINGUAL Q4H PRN PRN Reason: Anxiety/Restlessness/Delirium Hydromorphone HCl (Hydromorphone Hcl 0.5 Mg/0.5 Ml Syringe) 0.5 mg IVPUSH Q2H PRN; Protocol PRN Reason: Pain, Moderate(Pain Scale 4-6) Lorazepam (Lorazepam 1 Mg Tablet) 1 mg SUBLINGUAL Q4H PRN PRN Reason: anxiety/restlessness Lorazepam (Lorazepam 2 Mg/Ml Vial) 1 mg IV Q2H PRN PRN Reason: Anxiety Last Admin: 07/16/23 13:04 Dose: 1 mg Documented By: DAVID Melatonin (Melatonin 3 Mg Tablet) 6 mg PO BEDTIME PRN PRN Reason: Insomnia Morphine Sulfate (Morphine Sulfate 4 Mg/Ml Cartridge) 4 mg IVPUSH Q4H PRN PRN Reason: Discomfort/Shortness of breath Ondansetron HCl (Ondansetron Hcl 4 Mg/2 Ml Vial) 4 mg IVPUSH Q4H PRN PRN Reason: Nausea and Vomiting Last Admin: 07/16/23 09:36 Dose: 4 mg Documented By: DAVID Scopolamine (Scopolamine 1.5 Mg Patch.Td.3) 1.5 mg TRANSDERMA Q72H [facility] Last Admin: 07/15/23 14:38 Dose: 1.5 mg Documented By: ELIZABETH Sodium Chloride (0.9 % Sodium Chloride Flush 3 Ml Syringe) 3 ml IVFLUSH QSHIFT [facility] Last Admin: 07/17/23 00:09 Dose: Not Given Documented By: GEOVANNA Non-Admin Reason: Patient Refused Sodium Chloride (0.9 % Sodium Chloride Flush 10 Ml Syringe) 5 ml IVFLUSH DAILY [facility] Last Admin: 07/16/23 08:16 Dose: 5 ml Documented By: DAVID Labs 07/15/23 05:43 07/15/23 05:43 Assessment and Plan (1) Bacteremia due to Gram-positive bacteria: Status: Acute (2) 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: Status: Acute (3) Sacral decubitus ulcer: Status: Acute Plan Patient is a 58 Y M with quadriplegia, c/b unstagable decubitus ulcer, c/b bacteremia, admitted to ICU d/t hypotension and required pressors. Following discussion about manager game prognosis and unlikely scenario that the wounds will heal, mirna and her 2 daughters have decided not to be treated for IV Abx and rather to be treated conservatively and for comfort only. To be transitioned back to SNF wednesday Quality Stroke Does the patient have a stroke diagnosis?: No VTE Prior VTE?: No VTE Risk Level:: Medical - moderate - high VTE Device Contraindication: Treatment Not Indicated VTE Drug Contraindication: Treatment Not Indicated
[2023-07-17] MEDS: LORazepam 1 MG TABLET SUBLINGUAL (17:59)
--- NOTE | 2023-07-18 00:29 | PC.NURSE ---
dakins solution due 2100, previous RN reported patient's dressing was done mid afternoon by a different RN. Patient does not want dressing done until morning.
--- NOTE | 2023-07-18 09:36 | HO.PM.IMPN ---
Subjective Subjective Date of Service: 07/18/23 Interval History: Pt is doing ok and has no no new issues Physical Exam Vital Signs: Vital Signs: Last Vital Signs Temp 97.8 F 07/16/23 07:00 Pulse 87 07/16/23 07:00 Resp 18 07/16/23 07:00 BP 87/52 L 07/16/23 07:00 Pulse Ox 99 07/16/23 07:00 O2 Del Method Room Air 07/16/23 07:00 BMI result Body Mass Index 26.3 Const: Other: General: AO X 3, no acute distress Resp: CTA bilateral CVS: S1,S2,RRR GI: +BS, NT, no distention Skin: see pictures Neuro: quadpligic state Psych: appropriate affect Objective Data Active Medications Acetaminophen (Acetaminophen 325 Mg Tablet) 650 mg PO Q6H PRN PRN Reason: Pain, Mild (Pain Scale 1-3) Baclofen (Baclofen 10 Mg Tablet) 10 mg PO TID [facility] Last Admin: 07/17/23 22:53 Dose: 10 mg Documented By: LAKISHA Escitalopram Oxalate (Escitalopram Oxalate 5 Mg Tablet) 5 mg PO DAILY [facility] Last Admin: 07/17/23 09:10 Dose: 5 mg Documented By: SANA Haloperidol Lactate (Haloperidol Lactate Oral Conc 10 Mg/5 Ml Oral.Conc) 1 mg SUBLINGUAL Q4H PRN PRN Reason: Anxiety/Restlessness/Delirium Hydromorphone HCl (Hydromorphone Hcl 0.5 Mg/0.5 Ml Syringe) 0.5 mg IVPUSH Q2H PRN; Protocol PRN Reason: Pain, Moderate(Pain Scale 4-6) Lorazepam (Lorazepam 1 Mg Tablet) 1 mg SUBLINGUAL Q4H PRN PRN Reason: anxiety/restlessness Last Admin: 07/17/23 17:59 Dose: 1 mg Documented By: SANA Lorazepam (Lorazepam 2 Mg/Ml Vial) 1 mg IV Q2H PRN PRN Reason: Anxiety Last Admin: 07/16/23 13:04 Dose: 1 mg Documented By: DAVID Melatonin (Melatonin 3 Mg Tablet) 6 mg PO BEDTIME PRN PRN Reason: Insomnia Morphine Sulfate (Morphine Sulfate 4 Mg/Ml Cartridge) 4 mg IVPUSH Q4H PRN PRN Reason: Discomfort/Shortness of breath Ondansetron HCl (Ondansetron Hcl 4 Mg/2 Ml Vial) 4 mg IVPUSH Q4H PRN PRN Reason: Nausea and Vomiting Last Admin: 07/16/23 09:36 Dose: 4 mg Documented By: DAVID Scopolamine (Scopolamine 1.5 Mg Patch.Td.3) 1.5 mg TRANSDERMA Q72H [facility] Last Admin: 07/15/23 14:38 Dose: 1.5 mg Documented By: ELIZABETH Sodium Chloride (0.9 % Sodium Chloride Flush 3 Ml Syringe) 3 ml IVFLUSH QSHIFT [facility] Last Admin: 07/18/23 00:16 Dose: Not Given Documented By: SUNSHINE Non-Admin Reason: No Access Sodium Chloride (0.9 % Sodium Chloride Flush 10 Ml Syringe) 5 ml IVFLUSH DAILY [facility] Last Admin: 07/17/23 09:10 Dose: 5 ml Documented By: SANA Sodium Hypochlorite (Sodium Hypochlorite 0.25% 473 Ml Solution) 1 appl TOPICAL BID [facility] Last Admin: 07/18/23 00:29 Dose: Not Given Documented By: SUNSHINE Non-Admin Reason: See Note Labs 07/15/23 05:43 07/15/23 05:43 Assessment and Plan (1) Bacteremia due to Gram-positive bacteria: Status: Acute (2) 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: Status: Acute (3) Sacral decubitus ulcer: Status: Acute Plan Patient is a 58 Y M with quadriplegia, c/b unstagable decubitus ulcer, c/b bacteremia, was transfered to ICU d/t hypotension and required pressors. Following discussion about care home prognosis and unlikely scenario that the wounds will heal, patient and her 2 daughters have decided not to be treated for IV Abx and rather to be treated conservatively and for comfort only. To be transitioned back to SNF wednesday Quality Stroke Does the patient have a stroke diagnosis?: No VTE Prior VTE?: No VTE Risk Level:: Medical - moderate - high VTE Device Contraindication: Treatment Not Indicated VTE Drug Contraindication: Treatment Not Indicated
[2023-07-18] MEDS: Baclofen 10 MG TABLET PO ×3 (09:50→19:31)
[2023-07-18] MEDS: Escitalopram Oxalate 5 MG TABLET PO (09:50)
[2023-07-18] MEDS: HYDROmorphone HCl 0.5 MG/0.5 ML SYRINGE IVPUSH ×2 (11:31→20:35)
[2023-07-18] MEDS: Scopolamine 1.5 MG PATCH.TD.3 TRANSDERMA (13:59)
--- NOTE | 2023-07-18 15:50 | P.CDIM_ITS ---
PROVIDER RESPONSE TEXT: To clarify, the appropriate diagnosis supported by the clinical indicators: Chronic QUERY TEXT: PHYSICIAN'S DOCUMENTATION REQUEST Date of Query: 07/16/2023 07:32 AM EST Patient Name: Gary Bradley Admit Date: 07/13/2023 Dear Mehrdad Meléndez, A review of the medical record indicates additional documentation may be needed. Please review below and update the documentation accordingly. Clinical Indicators: Per Hospitalist Progress Note 07/14/23: recent ischial decubitus ulcers with acute osteomyelitis sacral and ischial decubitus ulcers with history of osteomyelitis Clarify which of the following accurately represents the acuity of the Osteomyelitis. Possible options might include: Acute Acute on chronic Chronic Other (explain) Clinically unable to determine (explain) Thank you, Amairani Vasquez RN Use of terms such as suspected, likely, concern for, or probable (associated with a specific diagnosi s that is being evaluated, monitored, or treated as if it exists) are acceptable and can be coded in the inpatient se tting, when documented at the time of discharge. Please use your independent medical judgment in providing your response. THIS QUERY IS PART OF THE PERMANENT MEDICAL RECORD
[2023-07-19] MEDS: 0.9 % Sodium Chloride Flush 10 ML SYRINGE 5 ML IVFLUSH (08:38)
[2023-07-19] MEDS: Baclofen 10 MG TABLET PO ×2 (08:38→15:03)
[2023-07-19] MEDS: Escitalopram Oxalate 5 MG TABLET PO (08:38)
--- NOTE | 2023-07-19 09:51 | HO.PM.IMPN ---
Subjective Subjective Date of Service: 07/19/23 Interval History: No new issues Physical Exam Vital Signs: Vital Signs: Last Vital Signs Temp 97.8 F 07/16/23 07:00 Pulse 87 07/16/23 07:00 Resp 18 07/16/23 07:00 BP 87/52 L 07/16/23 07:00 Pulse Ox 99 07/16/23 07:00 O2 Del Method Room Air 07/16/23 07:00 BMI result Body Mass Index 26.3 Const: Other: General: AO X 3, no acute distress Resp: CTA bilateral CVS: S1,S2,RRR GI: +BS, NT, no distention Skin: see pictures Neuro: quadpligic state Psych: appropriate affect Objective Data Active Medications Acetaminophen (Acetaminophen 325 Mg Tablet) 650 mg PO Q6H PRN PRN Reason: Pain, Mild (Pain Scale 1-3) Baclofen (Baclofen 10 Mg Tablet) 10 mg PO TID [facility] Last Admin: 07/19/23 08:38 Dose: 10 mg Documented By: DAVID Escitalopram Oxalate (Escitalopram Oxalate 5 Mg Tablet) 5 mg PO DAILY [facility] Last Admin: 07/19/23 08:38 Dose: 5 mg Documented By: DAVID Haloperidol Lactate (Haloperidol Lactate Oral Conc 10 Mg/5 Ml Oral.Conc) 1 mg SUBLINGUAL Q4H PRN PRN Reason: Anxiety/Restlessness/Delirium Hydromorphone HCl (Hydromorphone Hcl 0.5 Mg/0.5 Ml Syringe) 0.5 mg IVPUSH Q2H PRN; Protocol PRN Reason: Pain, Moderate(Pain Scale 4-6) Last Admin: 07/18/23 20:35 Dose: 0.5 mg Documented By: MITRA Lorazepam (Lorazepam 1 Mg Tablet) 1 mg SUBLINGUAL Q4H PRN PRN Reason: anxiety/restlessness Last Admin: 07/17/23 17:59 Dose: 1 mg Documented By: SANA Lorazepam (Lorazepam 2 Mg/Ml Vial) 1 mg IV Q2H PRN PRN Reason: Anxiety Last Admin: 07/16/23 13:04 Dose: 1 mg Documented By: DAVID Melatonin (Melatonin 3 Mg Tablet) 6 mg PO BEDTIME PRN PRN Reason: Insomnia Morphine Sulfate (Morphine Sulfate 4 Mg/Ml Cartridge) 4 mg IVPUSH Q4H PRN PRN Reason: Discomfort/Shortness of breath Ondansetron HCl (Ondansetron Hcl 4 Mg/2 Ml Vial) 4 mg IVPUSH Q4H PRN PRN Reason: Nausea and Vomiting Last Admin: 07/16/23 09:36 Dose: 4 mg Documented By: DAVID Scopolamine (Scopolamine 1.5 Mg Patch.Td.3) 1.5 mg TRANSDERMA Q72H [facility] Last Admin: 07/18/23 13:59 Dose: 1.5 mg Documented By: SANA Sodium Chloride (0.9 % Sodium Chloride Flush 3 Ml Syringe) 3 ml IVFLUSH QSHIFT [facility] Last Admin: 07/19/23 08:38 Dose: Not Given Documented By: DAVID Non-Admin Reason: No Access Sodium Chloride (0.9 % Sodium Chloride Flush 10 Ml Syringe) 5 ml IVFLUSH DAILY [facility] Last Admin: 07/19/23 08:38 Dose: 5 ml Documented By: DAVID Sodium Hypochlorite (Sodium Hypochlorite 0.25% 473 Ml Solution) 1 appl TOPICAL BID [facility] Last Admin: 07/18/23 19:31 Dose: 1 appl Documented By: MITRA Labs 07/15/23 05:43 07/15/23 05:43 Assessment and Plan (1) Bacteremia due to Gram-positive bacteria: Status: Acute (2) 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: Status: Acute (3) Sacral decubitus ulcer: Status: Acute Plan Patient is a 58 Y M with quadriplegia, c/b unstagable decubitus ulcer, c/b bacteremia, was transfered to ICU d/t hypotension and required pressors. Following discussion about special agent in charge prognosis and unlikely scenario that the wounds will heal, patient and her 2 daughters have decided not to be treated for IV Abx and rather to be treated conservatively and for comfort only. To be transitioned back to SNF today pending case management arrangment Quality Stroke Does the patient have a stroke diagnosis?: No VTE Prior VTE?: No VTE Risk Level:: Medical - moderate - high VTE Device Contraindication: Treatment Not Indicated VTE Drug Contraindication: Treatment Not Indicated
[2023-07-19] MEDS: HYDROmorphone HCl 0.5 MG/0.5 ML SYRINGE IVPUSH ×2 (11:39→15:42)
--- NOTE | 2023-07-19 15:30 | MHC.CM.PN ---
PT WAS CLEARED TO DC OVER THE WEEKEND HOWEVER [facility] WAS UNABLE TO GET INSURANCE AUTH UPDATES SENT VIA [employer] THIS MORNING AND THEY NOW HAVE INSURANCE AUTH CM MET WITH PT AND HIS COUSIN, THEY ARE AWARE OF PLANNED DC TIME PT STATES HE WAS HOPING TO STAY, CM EXPLAINED THE REASONS HE WOULD NOT BE ABLE TO STAY AND THAT HIS CARE COULD BE MANAGED AT A LOWER LOC. HE STATES UNDERSTANDING. HE DID EXPRESS CONCERNS THAT HE HAS BEEN GETTING ALL OF HIS MEDS VIA HIS [facility], CM EXPLAINED THE SNF WOULD NOT DO THIS AND ALL MEDS WOULD BE ORAL ONCE HE RETURNS. PT AND COUSIN STATE UNDERSTANDING PT WILL DC BACK TO [facility] TODAY AT 1630 HOURS VIA [facility]
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
== END 2023-07-19 17:05 | disposition skilled nursing facility (03) | DRG 720 ==
LOC: HO.ED 16:10 → HO.EDOVER 19:17 → HO.IMC 22:20 → HO.ICU 07-14 17:22 → HO.S3 07-15 19:28
PROVIDERS: Registered Nurse Community Health; Admitting Provider Internal Medicine; Emergency Provider Internal Medicine; PCP Family Medicine; Visit Provider Internal Medicine
DX: A41.9 Sepsis, unspecified organism (principal); R65.21 Severe sepsis with septic shock; G82.50 Quadriplegia, unspecified; L89.150 Pressure ulcer of sacral region, unstageable; E44.0 Moderate protein-calorie malnutrition; L89.613 Pressure ulcer of right heel, stage 3; L89.623 Pressure ulcer of left heel, stage 3; Z98.1 Arthrodesis status; I95.89 Other hypotension; D63.8 Anemia in other chronic diseases classified elsewhere; M86.69 Other chronic osteomyelitis, multiple sites; S14.159S Other incomplete lesion at unspecified level of cervical spinal cord, sequela; Z66 Do not resuscitate; F39 Unspecified mood [affective] disorder; D50.0 Iron deficiency anemia secondary to blood loss (chronic); E87.6 Hypokalemia; B95.62 Methicillin resistant Staphylococcus aureus infection as the cause of diseases classified elsewhere; Z51.5 Encounter for palliative care; Z68.26 Body mass index [BMI] 26.0-26.9, adult; Y93.55 Activity, bike riding; Z96.0 Presence of urogenital implants; Z93.3 Colostomy status; Z79.51 Long term (current) use of inhaled steroids; Z79.899 Other long term (current) drug therapy
CPT/HCPCS: 36415; 80053; 80202; 82565; 83605; 83735; 84100; 85025; 85027; 86850; 86900; 86901; 86923; 87040; 87077; 87147; 87186; 87205; 93306; 99285; C1758; J1170; J1642; J1956; J2060; J2185; J2405; J3370; J3371; J3475; P9016; P9047

== ENCOUNTER 2023-07-12 19:10 | Outpatient (BNV) | payer OTHER, SELFPAY | END 2023-07-15 07:00 | PROVIDERS: Admitting Provider Internal Medicine; Emergency Provider Internal Medicine; PCP Family Medicine; Visit Provider Internal Medicine Cardiovascular Disease | DX: I34.81 Nonrheumatic mitral (valve) annulus calcification (principal); I35.8 Other nonrheumatic aortic valve disorders | CPT/HCPCS: 93306 ==

== ENCOUNTER → 2023-07-12 19:10 | Outpatient (BNV) | payer OTHER, SELFPAY | PROVIDERS: Admitting Provider Internal Medicine; Emergency Provider Internal Medicine; PCP Family Medicine; Visit Provider Internal Medicine Critical Care Medicine | DX: R78.81 Bacteremia (principal); B99.9 Unspecified infectious disease; D63.8 Anemia in other chronic diseases classified elsewhere; L89.159 Pressure ulcer of sacral region, unspecified stage; M86.9 Osteomyelitis, unspecified | CPT/HCPCS: 99291; 99499 ==

== ENCOUNTER → 2023-07-12 19:10 | Outpatient (BNV) | payer OTHER, SELFPAY | PROVIDERS: Admitting Provider Internal Medicine; Emergency Provider Internal Medicine; PCP Family Medicine; Visit Provider Internal Medicine | DX: L89.159 Pressure ulcer of sacral region, unspecified stage (principal); R78.81 Bacteremia | CPT/HCPCS: 99222 ==

== ENCOUNTER → 2023-07-12 19:10 | Outpatient (BNV) | payer OTHER, SELFPAY | PROVIDERS: Admitting Provider Internal Medicine; Emergency Provider Internal Medicine; PCP Family Medicine; Visit Provider Surgery | DX: L89.159 Pressure ulcer of sacral region, unspecified stage (principal); M86.9 Osteomyelitis, unspecified; L89.619 Pressure ulcer of right heel, unspecified stage; L89.629 Pressure ulcer of left heel, unspecified stage | CPT/HCPCS: 97597; 97598; 99222; 99499 ==

== ENCOUNTER → 2023-07-12 19:10 | Outpatient (BNV) | payer OTHER, SELFPAY | PROVIDERS: Admitting Provider Internal Medicine; Emergency Provider Internal Medicine; PCP Family Medicine; Visit Provider Internal Medicine | DX: R78.81 Bacteremia (principal); B99.9 Unspecified infectious disease; D63.8 Anemia in other chronic diseases classified elsewhere; L89.159 Pressure ulcer of sacral region, unspecified stage | CPT/HCPCS: 99223; 99232; 99239; 99499 ==